=== PATIENT | female | born 1950 | race Caucasian/White ===

== ENCOUNTER 2016-12-24 11:40 | Observation (INO) | payer OTHER ==
[2016-12-24 11:46] VITALS: BMI 36.2
--- NOTE | 2016-12-24 11:55 | PDOC ---
History of Present Illness - General History Source: Family (Daughter) Exam Limitations: No Limitations - History of Present Illness Initial Comments: 12/24/16 12:26 The patient is a 66 year old female with a significant PMH of diabetes, diabetic neuropathy, HTN, hyperlipidemia, chronic back pain, and vocal cord damage s/p thyroidectomy (2012) who presents to the emergency department with shortness of breath and chest pain beginning approximately 10 hours ago. The patients daughter reports that the patient has had difficulty breathing and speaking since her thyroid surgery, which is normally under control. However, this morning the patients daughter noticed that the patient was taking a significant time to catch her breath each time and could not speak at all, prompting her to bring the patient to the ED. The patient appears anxious upon presentation to the ED. The patient denies headache and dizziness. Denies fever, chills, nausea, vomit, diarrhea and constipation. Denies dysuria, frequency, urgency and hematuria. Allergies: Codeine, Penicillins. Past surgical history: Unilateral thyroidectomy. Social history: No reported cigarette, alcohol, or drug use. PCP: Dr. Kilgore <Colby Tinoco - Last Filed: 12/24/16 15:08> <Hoang Wood - Last Filed: 12/24/16 17:07> - General Chief Complaint: Shortness of Breath Stated Complaint: SOB Time Seen by Provider: 12/24/16 11:55 Past History <Colby Tinoco - Last Filed: 12/24/16 15:08> - Past Medical History Diabetes: Yes HTN: Yes Hypercholesterolemia: Yes Thyroid Disease: Yes - Surgical History Abdominal Surgery: Yes Appendectomy: Yes Cholecystectomy: Yes - Immunization History Immunization Up to Date: No - Suicide/Smoking/Psychosocial Hx Smoking Status: No Smoking History: Never smoked Number of Cigarettes Smoked Daily: 0 Information on smoking cessation initiated: No Hx Alcohol Use: No Drug/Substance Use Hx: No Substance Use Type: None <Hoang Wood - Last Filed: 12/24/16 17:07> - Past Medical History Allergies/Adverse Reactions: Allergies Allergy/AdvReac Type Severity Reaction Status Date / Time codeine Allergy Rash Verified 12/24/16 11:46 Penicillins Allergy Rash Verified 12/24/16 11:46 Home Medications: Ambulatory Orders Metformin HCl [Glucophage] 1,000 mg PO BID 10/16/12 Simvastatin [Zocor -] 20 mg PO HS 10/16/12 Carvedilol 3.125 mg PO BID 04/20/14 Esomeprazole Magnesium [Nexium 24Hr] 20 mg PO PRN 12/24/16 Gabapentin [Neurontin -] 300 mg PO TID 12/24/16 Insulin Glargine,Hum.rec.anlog [Lantus (nf)] 50 units SQ HS 12/24/16 Levothyroxine [Synthroid -] 25 mcg PO BID 12/24/16 Review of Systems - Review of Systems Comments:: 12/24/16 12:26 GENERAL/CONSTITUTIONAL: No fever or chills. No weakness. HEAD, EYES, EARS, NOSE AND THROAT: No change in vision. No ear pain or discharge. No sore throat. CARDIOVASCULAR: (+) Shortness of breath. (+) Chest pain. RESPIRATORY: No cough, wheezing, or hemoptysis. GASTROINTESTINAL: No nausea, vomiting, diarrhea or constipation. GENITOURINARY: No dysuria, frequency, or change in urination. MUSCULOSKELETAL: No joint or muscle swelling or pain. No neck or back pain. SKIN: No rash NEUROLOGIC: No headache, vertigo, loss of consciousness, or change in strength/ sensation. ENDOCRINE: No increased thirst. No abnormal weight change. HEMATOLOGIC/LYMPHATIC: No anemia, easy bleeding, or history of blood clots. ALLERGIC/IMMUNOLOGIC: No hives or skin allergy. <Colby Tinoco - Last Filed: 12/24/16 15:08> *Physical Exam - Vital Signs Last Vital Signs Temp Pulse Resp BP Pulse Ox 98.1 F 64 19 150/66 100 12/24/16 11:44 12/24/16 11:44 12/24/16 11:44 12/24/16 11:44 12/24/16 12:21 - Physical Exam Comments: 12/24/16 12:27 GENERAL: (+) Anxious. Awake, alert, and fully oriented. HEAD: No signs of trauma EYES: PERRLA, EOMI, sclera anicteric, conjunctiva clear ENT: Auricles normal inspection, hearing grossly normal, nares patent, oropharynx clear without exudates. Moist mucosa NECK: Normal ROM, supple, no lymphadenopathy, JVD, or masses LUNGS: Breath sounds equal, clear to auscultation bilaterally. No wheezes, and no crackles HEART: Regular rate and rhythm, normal S1 and S2, no murmurs, rubs or gallops ABDOMEN: Soft, nontender, normoactive bowel sounds. No guarding, no rebound. No masses EXTREMITIES: Normal range of motion, no edema. No clubbing or cyanosis. No cords, erythema, or tenderness NEUROLOGICAL: Cranial nerves II through XII grossly intact. Normal speech, normal gait SKIN: Warm, Dry, normal turgor, no rashes or lesions noted. <Colby Tinoco - Last Filed: 12/24/16 15:08> - Vital Signs Last Vital Signs Temp Pulse Resp BP Pulse Ox 98.1 F 64 19 150/66 97 12/24/16 11:44 12/24/16 11:44 12/24/16 11:44 12/24/16 11:44 12/24/16 11:44 <Hoang Wood - Last Filed: 12/24/16 17:07> Heart Score/ECG Review #1 12/24/16 14:51 Vent rate 64 bpm AK interval 130 ms QRS duration 66 ms QT/QTc 342/352 ms P-R-T axes 38 -17 133 Normal sinus rhythm with sinus arrhythmia. Inferior infarct, age undetermined. Anterior infarct, age undetermined. Abnormal ECG. <Colby Tinoco - Last Filed: 12/24/16 15:08> ED Treatment Course - LABORATORY CBC & Chemistry Diagram: 12/24/16 12:00 12/24/16 12:00 <Colby Tinoco - Last Filed: 12/24/16 15:08> - LABORATORY CBC & Chemistry Diagram: 12/24/16 12:00 12/24/16 12:00 <Hoang Wood - Last Filed: 12/24/16 17:07> *DC/Admit/Observation/Transfer - Attestations Scribe Attestion: 12/24/16 12:27 Documentation prepared by Colby Tinoco, acting as medical insurance clerk for Hoang Wood DO. <Colby Tinoco - Last Filed: 12/24/16 15:08> - Discharge Dispostion Admit: Yes - Attestations Physician Attestion: 12/24/16 11:55 I, Dr. Hoang Wood, attest that this document has been prepared under my direction and personally reviewed by me in its entirety. I further attest, that it accurately reflects all work, treatment, procedures and medical decision -making performed by me. <Hoang Wood - Last Filed: 12/24/16 17:07> Diagnosis at time of Disposition: ACS (acute coronary syndrome), Chest pain, atypical, Vocal cord paralysis syndrome, Anxiety, Elevated CPK Dyspnea Qualifiers: Dyspnea type: shortness of breath Qualified Code(s): R06.02 - Shortness of breath - Discharge Dispostion Condition at time of disposition: Improved *Heart Score (ED) - History History: Slightly suspicious - Electrocardiogram EKG: Non specific repolarization disturbance - Age Age: >/= 65 - Risk Factors Risk Factors Heart Score: Yes Hx Hypercholesterolemia, Yes Hx Diabetes, Yes Positive family hx of cardiac disease, Yes Hx Obesity Based on the list above the patient has:: >/=3 risk factors or Hx atherosclerotic disease - Troponin Troponin: </= normal limit - Score Heart Score - Total: 5 <Hoang Wood - Last Filed: 12/24/16 17:07>
[2016-12-24] MEDS ORDERED: SODIUM CHLORIDE 1,000 ML IV STA (12:13)
[2016-12-24] MEDS ORDERED: ASPIRIN 81 MG CHEWABLE TABLETS PO ONE (12:13)
[2016-12-24] MEDS ORDERED: ASPIRIN 81 MG CHEWABLE TABLETS ONE (12:24)
[2016-12-24] MEDS ORDERED: LORazepam 2 MG/ML SDV VIAL ONE (12:25)
[2016-12-24 12:34] LABS: BASOPHIL 0.5 % (0-2.0); EOSINOPHIL 2.9 % (0-4.5); MCH 27.6 pg (25.7-33.7); MCHC 32.9 g/dl (32.0-36.0); NEUTROPHILS 52.8 % (42.8-82.8); PLATELET COUNT 153 K/MM3 (134-434); RDW 14.3 % (11.6-15.6); WHITE BLOOD COUNT 6.6 K/mm3 (4.0-10.0)
[2016-12-24 12:40] LABS: INR 1.2 (0.82-1.09); PROTHROMBIN TIME (PATIENT) 13.3 SEC (9.98-11.88)
[2016-12-24 12:42] LABS: URINE APPEARANCE CLEAR; URINE BILIRUBIN NEGATIVE (NEGATIVE); URINE BLOOD NEGATIVE (NEGATIVE); URINE COLOR STRAW; URINE GLUCOSE (UA) NEGATIVE (NEGATIVE); URINE KETONE NEGATIVE (NEGATIVE); URINE LEUK ESTERASE TRACE (NEGATIVE); URINE NITRITE NEGATIVE (NEGATIVE); URINE PROTEIN NEGATIVE (NEGATIVE); URINE UROBILINOGEN NEGATIVE mg/dL (0.2-1.0)
[2016-12-24 12:49] LABS: URINE RBC 1 /hpf (0-3); URINE WBC 3 /hpf (3-5)
[2016-12-24 12:56] LABS: ALBUMIN 3.5 g/dl (3.4-5.0); ANION GAP 8 (8-16); BILIRUBIN,TOTAL 0.7 mg/dL (0.2-1.0); CALCIUM 9.6 mg/dL (8.5-10.1); CO2 27 mmol/L (21-32); CREATININE 0.7 mg/dL (0.55-1.02); GLUCOSE,RANDOM 124 mg/dL (74-106); MAGNESIUM 1.5 mg/dL (1.8-2.4); SGOT/AST 55 U/L (15-37); SGPT/ALT 73 U/L (12-78); TOT PROT 7.2 g/dl (6.4-8.2)
[2016-12-24 12:59] LABS: ALK PHOS 60 U/L (45-117); CPK 261 IU/L (26-192); TROPONIN I 0.03 ng/ml (0.00-0.05)
[2016-12-24 13:41] LABS: ALLENS TEST POSITIVE; ARTERIAL BLD GAS O2 SATURATION 97.9 % (90-98.9); ARTERIAL BLOOD GAS BASE EXCESS -0.5 meq/l (-2-2); ARTERIAL BLOOD GAS HCO3 24.2 meq/L (22-26); ARTERIAL BLOOD GAS PO2 98.7 mmHg (80-100); ARTERIAL BLOOD GAS pH 7.37 (7.35-7.45); METHEMOGLOBIN 0.4 % (0.4-1.5)
[2016-12-24 13:42] LABS: ART PUNCT SITE RIGHT RADIAL; LPM/O2% 1.5L; PT. ON O2? YES; TYPE OF O2 NASAL
[2016-12-24] MEDS ORDERED: FLU VACCINE QUAD 60 MCG/0.5 ML (MDV 17-18) IM ONE (17:05)
[2016-12-24] MEDS ORDERED: MAGNESIUM SULF 50% (8.12 MEQ/2 ML-1 GM VIAL) IVPB ONE ×2 (17:06→20:23)
[2016-12-24] MEDS ORDERED: MAGNESIUM SULF 50% (8.12 MEQ/2 ML-1 GM VIAL) ONE (17:08)
--- NOTE | 2016-12-24 18:06 | HP ---
CHIEF COMPLAINT: Chest pain and SOB PCP: Dr. Dede Kilgore ([facility]) Cardiology: Dr. Ranjan Sun ([facility]) HISTORY OF PRESENT ILLNESS: 66 year-old female with a PMH significant for HTN, HLD, GERD, IDDM, diabetic neuropathy, lumbar disc disease with sciatica s/p L4-L5 laminectomy (2014), s/p partial thyroidectomy with vocal cord damage sequelae (2012), renal cancer s/p right nephrectomy (2009, no radiation/no chemo), At 2:00am today the patient awoke from sleep gasping for air and it took about 30 minutes for her breathing to return to normal. The shortness of breath was accompanied by a pain in her throat which moved down to the upper part of her chest. This too resolved in about 30 minutes. When the patient's daughter heard what happened at 10:00am she drove from [place] and brought her mother to the ED. The patient has a history of becoming short of breath, at times, since her thyroid surgery and she has been instructed on how to breath through her nose to regulate her breathing. She tried this technique today but it did not work. The patient denies dizziness , lightheadedness, palpitations, diaphoresis; denies any change in exercise tolerance; denies fever, sweats, chills; denies peripheral edema. She once went for a sleep study for her snoring but she was unable to complete the study as she cannot lay down for more than an hour at a time due to her back pain and neuropathy. ER course was notable for: (1) ECG SR @ 64, sinus arrhythmia (2) Trop x 1 neg Recent Travel: No PAST MEDICAL HISTORY: Hypertension Hyperlipidemia IDDM Diabetic neuropathy Lumbar disc disease with sciatica Renal cancer PAST SURGICAL HISTORY: L4-L5 laminectomy (2014) Partial thyroidectomy (2012) Right nephrectomy (2009) Hysterectomy (2000) Cholecystectomy (1982) Appendectomy (1969) Social History Smoking: no Alcohol: no Drugs: no Family History: family cardiac history Allergies codeine Allergy (Verified 12/24/16 11:46) Rash Penicillins Allergy (Verified 12/24/16 11:46) Rash Home Medications Medication Instructions Recorded Metformin HCl [Glucophage] 1,000 mg PO BID 10/16/12 Simvastatin [Zocor -] 0 mg PO HS 10/16/12 Carvedilol 3.125 mg PO BID 04/20/14 Esomeprazole Magnesium [Nexium 20 mg PO PRN 12/24/16 24Hr] Gabapentin [Neurontin -] 300 mg PO TID 12/24/16 Insulin Glargine,Hum.rec.anlog 50 units SQ HS 12/24/16 [Lantus (nf)] Levothyroxine [Synthroid -] 25 mcg PO BID 12/24/16 REVIEW OF SYSTEMS CONSTITUTIONAL: Absent: fever, chills, diaphoresis, generalized weakness, malaise, loss of appetite, weight change HEENT: Absent: rhinorrhea, nasal congestion, throat pain, throat swelling, difficulty swallowing, mouth swelling, ear pain, eye pain, visual changes CARDIOVASCULAR: Absent: chest pain, syncope, palpitations, irregular heart rate, lightheadedness , peripheral edema RESPIRATORY: Present: SOB, h/o snoring, throat pain Absent: cough, shortness of breath, dyspnea with exertion, orthopnea, wheezing, stridor, hemoptysis GASTROINTESTINAL: Absent: abdominal pain, abdominal distension, nausea, vomiting, diarrhea, constipation, melena, hematochezia GENITOURINARY: Absent: dysuria, frequency, urgency, hesitancy, hematuria, flank pain, genital pain MUSCULOSKELETAL: Absent: myalgia, arthralgia, joint swelling, back pain, neck pain SKIN: Absent: rash, itching, pallor HEMATOLOGIC/IMMUNOLOGIC: Absent: easy bleeding, easy bruising, lymphadenopathy, frequent infections ENDOCRINE: Absent: unexplained weight gain, unexplained weight loss, heat intolerance, cold intolerance NEUROLOGIC: Absent: headache, focal weakness or paresthesias, dizziness, unsteady gait, seizure, mental status changes, bladder or bowel incontinence PSYCHIATRIC: Absent: anxiety, depression, suicidal or homicidal ideation, hallucinations. PHYSICAL EXAMINATION Vital Signs - 24 hr 12/24/16 16:56 Pulse Rate 64 Respiratory 15 Rate Blood Pressure 139/63 GENERAL: Awake, alert, and fully oriented, in no acute distress. HEAD: Normal with no signs of trauma. EYES: Pupils equal, round and reactive to light, extraocular movements intact, sclera anicteric, conjunctiva clear. No ptosis. EARS, NOSE, THROAT: Ears normal, nares patent, oropharynx clear without exudates. Moist mucous membranes. NECK: Normal range of motion, supple without lymphadenopathy, JVD, or masses. LUNGS: Breath sounds equal, clear to auscultation bilaterally. No wheezes, and no crackles. No accessory muscle use. HEART: Regular rate and rhythm, normal S1 and S2, +murmur ABDOMEN: Soft, nontender, not distended, normoactive bowel sounds, no guarding, no rebound, no masses. No hepatomegaly or splenomegaly. MUSCULOSKELETAL: Normal range of motion at all joints. No bony deformities or tenderness. No CVA tenderness. UPPER EXTREMITIES: 2+ pulses, warm, well-perfused. No cyanosis. No clubbing. No peripheral edema. LOWER EXTREMITIES: 2+ pulses, warm, well-perfused. No calf tenderness. No peripheral edema. NEUROLOGICAL: Cranial nerves II-XII intact. Normal speech. Moving all extremities freely. PSYCHIATRIC: Cooperative. Good eye contact. Appropriate mood and affect. ASSESSMENT/PLAN: 66 year-old female with a PMH significant for HTN, HLD, GERD, IDDM, diabetic neuropathy, lumbar disc disease with sciatica s/p L4-L5 laminectomy (2014), s/p partial thyroidectomy with vocal cord damage sequelae (2012), and renal cancer s /p right nephrectomy (2009, no radiation/no chemo). Shortness of breath Throat pain/upper mid chest pain --cardiac: two troponins neg, third pending; ECG not suggestive of acute ischemic event; CXR: large heart; follows regularly with reservation sales agent Dr Ranjan Carias at [facility] ([phone]) and last seen two weeks ago, told everything was "fine"; get records in am; echo ordered; NPO after midnight in event stress is warranted; cardiology consult Dr. Palm; tele monitoring --r/o pulmonary: low suspicion for PE, Wells score zero; suspect sleep apnea ; several years ago could not complete a sleep study; pulmonary consult requested; --r/o thyroid: since thyroidectomy has had episodes of SOB v. apnea, patient describes a feeling at times of something stuck in her throat and she can't breathe, concern for obstructive v. inflammatory process; consider ENT consult, obtain PCP records --GERD: on nexium at home; start protonix Hypertension --continue carvediolol Hyperlipidemia --continue atorvastatin GERD --continue protonix IDDM --Novolog sliding scale coverage Diabetic neuropathy --continue Gabapentin Lumbar disc disease s/p L4-L5 laminectomy with sciatica --continue Gabapentin Partial thyroidectomy --continue levothyroxine --TSH, free T3, free T4 Renal cancer s/p right nephrectomy --patient was followed for three years by oncology, no recurrence; surveillance now down by PCP Dr. Dede Kilgore Hypomagnesemia --Mg 1.5; repleted 1gm in ED, 1gm now; keep Mg>2 F/E/N Fluids: PO intake adequate Electrolytes: replete as indicated Nutrition: diabetic, low sodium; NPO after midnight DVT prophylaxis: subq heparin, oob, ambulation Dispo: continues to require inpatient care. Full code. Visit type - Emergency Visit Emergency Visit: Yes ED Registration Date: 12/24/16 Care time: The patient presented to the Emergency Department on the above date and was hospitalized for further evaluation of their emergent condition. - New Patient This patient is new to me today: Yes Date on this admission: 12/24/16 - Critical Care Critical Care patient: No
[2016-12-24] MEDS ORDERED: ENOXAPARIN NA (PORCINE) 40 MG/0.4 ML DISP.SYRIN SQ SCH (18:15)
[2016-12-24] MEDS ORDERED: PATIENT'S OWN MEDICATION (NON-FORMULARY) (Esomeprazole Magnesium [Nexium 24hr] 20 MG) PO SCH (18:15)
[2016-12-24] MEDS: ATORVASTATIN CA 20 MG TABLET (FP) PO SCH (21:37)
[2016-12-24] MEDS: GABAPENTIN 100 MG CAPSULE (FP) PO SCH (21:37)
[2016-12-24] MEDS: CARVEDILOL 3.125 MG TABLET (FP) PO SCH (21:37)
[2016-12-24] MEDS: HEPARIN NA (PORCINE) 5,000 UNITS/ML 1ML VIAL SQ SCH (21:39)
[2016-12-24] MEDS: INSULIN (NOVOLOG) ASPART 100 UNITS/ML 10ML VIAL SQ SCH (21:41)
[2016-12-24] MEDS ORDERED: ATORVASTATIN CA 40 MG TABLET (FP) PO SCH (22:00)
[2016-12-24] MEDS ORDERED: LEVOTHYROXINE NA 25 MCG TABLET (FP) PO SCH (22:00)
[2016-12-25] MEDS: HEPARIN NA (PORCINE) 5,000 UNITS/ML 1ML VIAL SQ SCH ×3 (06:00→21:40)
[2016-12-25] MEDS: GABAPENTIN 100 MG CAPSULE (FP) PO SCH ×3 (06:00→21:39)
[2016-12-25] MEDS: LEVOTHYROXINE NA 25 MCG TABLET (FP) PO SCH (07:00)
[2016-12-25 07:39] LABS: BASOPHIL 0.5 % (0-2.0); EOSINOPHIL 2.4 % (0-4.5); MCH 28.1 pg (25.7-33.7); MCHC 32.9 g/dl (32.0-36.0); MEAN CELL VOLUME 85.2 fl (80-96); MEAN PLT VOLUME 9.2 fl (7.5-11.1); NEUTROPHILS 44.5 % (42.8-82.8); PLATELET COUNT 125 K/MM3 (134-434); RDW 14.5 % (11.6-15.6); WHITE BLOOD COUNT 5.4 K/mm3 (4.0-10.0)
--- NOTE | 2016-12-25 08:21 | CON.CARD ---
Consult Consult Specialty:: Cardiology Referred by:: Hospitalist Medicine Reason for Consultation:: PND - History of Present Illness Chief Complaint: PND History of Present Illness: PCP: Dr. Dede Kilgore ([facility]) Cardiology: Dr. Ranjan Carias ([facility]), previously Dr. Seth Hernandez ( [facility]), ENT ([facility] [phone]) HISTORY OF PRESENT ILLNESS: 66 year-old female with a PMH significant for HTN, HLD, GERD, IDDM, diabetic neuropathy, lumbar disc disease with sciatica s/p L4-L5 laminectomy (2014), s/p partial thyroidectomy with vocal cord damage sequelae (2012), renal cancer s/p right nephrectomy (2009, no radiation/no chemo), patient awoke from sleep gasping for air and it took about 30 minutes for her breathing to return to normal. The shortness of breath was accompanied by a pain in her throat which moved down to the upper part of her chest. This too resolved in about 30 minutes. The patient has a history of becoming short of breath with choking sensation since her thyroid surgery and she has been instructed on how to breath through her nose to regulate her breathing. She tried this technique today but it did not work, previosly had hoarse voice since resolved. The patient denies dizziness, true syncope, lightheadedness, palpitations, diaphoresis, angina, denies any change in exercise tolerance; denies fever, sweats, chills; denies peripheral edema. She once went for a sleep study for her snoring but she was unable to complete the study as she cannot lay down for more than an hour at a time due to her back pain and neuropathy. - Past Medical History Cardio/Vascular: Yes: HTN, Hyperlipdemia Endocrine: Yes: Diabetes Mellitus - Alcohol/Substance Use Hx Alcohol Use: No - Smoking History Smoking history: Never smoked Aproximately how many cigarettes per day: 0 - Social History Usual Living Arrangement: With Spouse Home Medications - Allergies Allergies/Adverse Reactions: Allergies Allergy/AdvReac Type Severity Reaction Status Date / Time codeine Allergy Rash Verified 12/24/16 11:46 Penicillins Allergy Rash Verified 12/24/16 11:46 - Home Medications Home Medications: Ambulatory Orders Metformin HCl [Glucophage] 1,000 mg PO BID 07/17/13 Simvastatin [Zocor -] 0 mg PO HS 10/16/12 Carvedilol 3.125 mg PO BID 04/20/14 Esomeprazole Magnesium [Nexium 24Hr] 20 mg PO PRN 12/24/16 Gabapentin [Neurontin -] 300 mg PO TID 12/24/16 Insulin Glargine,Hum.rec.anlog [Lantus (nf)] 50 units SQ HS 12/24/16 Levothyroxine [Synthroid -] 25 mcg PO BID 12/24/16 Review of Systems - Review of Systems Respiratory: reports: PND Vital Signs: Vital Signs Temperature 98.0 F 12/25/16 06:00 Pulse Rate 74 12/25/16 06:00 Respiratory Rate 18 12/25/16 06:00 Blood Pressure 129/59 12/25/16 06:00 O2 Sat by Pulse Oximetry (%) 95 12/24/16 21:00 Constitutional: Yes: No Distress, Calm Neck: Yes: Supple Respiratory: Yes: Regular, Diminished Gastrointestinal: Yes: Normal Bowel Sounds, Soft, Abdomen, Obese Cardiovascular: Yes: Regular Rate and Rhythm JVD: No Carotid Bruit: No Heart Sounds: Yes: S1, S2 Edema: No - Other Data Labs, Other Data: CBC, BMP 12/25/16 05:30 12/25/16 05:30 INR, PTT INR 1.20 (0.82-1.09) H 12/24/16 12:00 Troponin, BNP 12/24/16 12/25/16 18:20 00:30 Troponin I 0.02 < 0.02 Troponin, BNP 12/24/16 12/25/16 18:20 00:30 Troponin I 0.02 < 0.02 NSR @ 64 inferior Qs, PRWP Imaging - Results Chest X-ray: Report Reviewed (NAD) Problem List - Problems (1) Chest pain, atypical Code(s): R07.89 - OTHER CHEST PAIN (2) Vocal cord paralysis syndrome Code(s): J38.00 - PARALYSIS OF VOCAL CORDS AND LARYNX, UNSPECIFIED (3) Hypothyroidism Code(s): E03.9 - HYPOTHYROIDISM, UNSPECIFIED Qualifiers: Hypothyroidism type: unspecified Qualified Code(s): E03.9 - Hypothyroidism, unspecified (4) Hyperlipidemia Code(s): E78.5 - HYPERLIPIDEMIA, UNSPECIFIED Qualifiers: Hyperlipidemia type: pure hypercholesterolemia Qualified Code(s): E78.00 - Pure hypercholesterolemia, unspecified; E78.0 - Pure hypercholesterolemia (5) Hypertension Code(s): I10 - ESSENTIAL (PRIMARY) HYPERTENSION Qualifiers: Hypertension type: essential hypertension Qualified Code(s): I10 - Essential (primary) hypertension (6) Type 2 diabetes mellitus Code(s): E11.9 - TYPE 2 DIABETES MELLITUS WITHOUT COMPLICATIONS Qualifiers: Diabetes mellitus complication status: with unspecified complications Diabetes mellitus penitentiary insulin use: with extermination inspector use Qualified Code(s): E11.8 - Type 2 diabetes mellitus with unspecified complications; Z79.4 - terminal block assembler (current) use of insulin Assessment/Plan 1. Dyspnea, choking and aspiration with h/o vocal cord paralysis post partial thyroidectomy 2. Hypertension 3. Hyperlipidema 4. insulin-dependent Type 2 DM P:1. ENT for NPL and contact ENT at [facility], speech and swallow therapy 2. Ruling out for AL, symptoms atypical for CV disease 3. Continue Lipitor and carvedilol 3. Patient prefers to continue following up with me as outpatient, please obtain records from [facility] 4. Will follow while in house.
[2016-12-25 08:23] LABS: ALBUMIN 3.1 g/dl (3.4-5.0); ANION GAP 7 (8-16); CALCIUM 8.9 mg/dL (8.5-10.1); CO2 26 mmol/L (21-32); GLUCOSE,RANDOM 175 mg/dL (74-106); MAGNESIUM 1.8 mg/dL (1.8-2.4); SGOT/AST 43 U/L (15-37)
[2016-12-25 08:28] LABS: C-REACTIVE PROTEIN 0.8 MG/DL (0.00-0.3)
[2016-12-25 08:29] LABS: FREE T4 0.97 ng/dl (0.76-1.46)
[2016-12-25 08:35] LABS: ALK PHOS 57 U/L (45-117); BILIRUBIN,TOTAL 0.5 mg/dL (0.2-1.0); CREATININE 0.8 mg/dL (0.55-1.02); SGPT/ALT 60 U/L (12-78); THYROID STIMULATING HORMONE 3.34 uIU/ml (0.358-3.74); TOT PROT 6.3 g/dl (6.4-8.2)
[2016-12-25] MEDS: PANTOPRAZOLE 40 MG TABLET (FP) PO SCH (09:12)
[2016-12-25] MEDS: CARVEDILOL 3.125 MG TABLET (FP) PO SCH ×2 (09:12→21:39)
[2016-12-25 09:16] LABS: ERYTHROCYTE SEDIMENTATION RATE 35 mm/hr (0-30)
--- NOTE | 2016-12-25 10:54 | EKG ---
Test Reason : Blood Pressure : / mmHG Vent. Rate : 064 BPM Atrial Rate : 064 BPM P-R Int : 128 ms QRS Dur : 070 ms QT Int : 444 ms P-R-T Axes : 055 002 090 degrees QTc Int : 458 ms NORMAL SINUS RHYTHM WITH SINUS ARRHYTHMIA INFERIOR INFARCT (CITED ON OR BEFORE 12-NOV-2009) ABNORMAL ECG WHEN COMPARED WITH ECG OF 24-DEC-2016 12:26, NONSPECIFIC T WAVE ABNORMALITY NO LONGER EVIDENT IN INFERIOR LEADS NONSPECIFIC T WAVE ABNORMALITY NO LONGER EVIDENT IN ANTERIOR LEADS QT HAS LENGTHENED Confirmed by WYATT TRAN, DHRUV ([id number]) on 12/25/2016 10:54:01 AM Referred By: KELLEN YEPEZ Confirmed By:DHRUV SCHNEIDER MD
--- NOTE | 2016-12-25 11:19 | EKG ---
Test Reason : Blood Pressure : / mmHG Vent. Rate : 064 BPM Atrial Rate : 064 BPM P-R Int : 130 ms QRS Dur : 066 ms QT Int : 342 ms P-R-T Axes : 038 -17 133 degrees QTc Int : 352 ms NORMAL SINUS RHYTHM WITH SINUS ARRHYTHMIA INFERIOR INFARCT (CITED ON OR BEFORE 12-NOV-2009) ANTERIOR INFARCT , AGE UNDETERMINED ABNORMAL ECG WHEN COMPARED WITH ECG OF 29-MAY-2014 23:22, VENT. RATE HAS DECREASED BY 52 BPM SERIAL CHANGES OF INFERIOR INFARCT PRESENT Confirmed by DHRUV SCHNEIDER MD ([id number]) on 12/25/2016 11:19:01 AM Referred By: Confirmed By:DHRUV SCHNEIDER MD
--- NOTE | 2016-12-25 11:48 | PN ---
Progress Note (short form) - Note Progress Note: PULMONARY CONSULTATION DICTATED 12/25/16 IMP DYSPNEA,CHOKING R/O ASPIRATION,?OSAS VOCAL CORD PARALYSIS S/P THYROIDECTOMY H/O RENAL CELL CA S/P R NEPHRECTOMY IDDM HTN HLD PLAN ENT EVAL ASPIRATION PRECAUTIONS SLEEP SCREEN ? CT UPPER AIRWAY PFTS WITH FLOW VOLUME LOOP OUTPATIENT CONSIDER SPEECH THERAPY EVALUATION Problem List - Problems (1) Anxiety Code(s): F41.9 - ANXIETY DISORDER, UNSPECIFIED (2) Chest pain, atypical Code(s): R07.89 - OTHER CHEST PAIN (3) Dyspnea Code(s): R06.00 - DYSPNEA, UNSPECIFIED Qualifiers: Dyspnea type: shortness of breath Qualified Code(s): R06.02 - Shortness of breath; R06.00 - Dyspnea, unspecified; R06.01 - Orthopnea (4) Hyperlipidemia Code(s): E78.5 - HYPERLIPIDEMIA, UNSPECIFIED Qualifiers: Hyperlipidemia type: pure hypercholesterolemia Qualified Code(s): E78.00 - Pure hypercholesterolemia, unspecified; E78.0 - Pure hypercholesterolemia (5) Hypertension Code(s): I10 - ESSENTIAL (PRIMARY) HYPERTENSION Qualifiers: Hypertension type: essential hypertension Qualified Code(s): I10 - Essential (primary) hypertension (6) Low back pain Code(s): M54.5 - LOW BACK PAIN (7) Lumbar radicular pain Code(s): M54.16 - RADICULOPATHY, LUMBAR REGION (8) Vocal cord paralysis syndrome Code(s): J38.00 - PARALYSIS OF VOCAL CORDS AND LARYNX, UNSPECIFIED
--- NOTE | 2016-12-25 12:26 | CONSULT ---
Admitting History and Physical - Primary Care Physician PCP: Missy Desir - Admission History of Present Illness: Per EMR: DYSPNEA,CHOKING R/O ASPIRATION,?OSAS VOCAL CORD PARALYSIS S/P THYROIDECTOMY H/O RENAL CELL CA S/P R NEPHRECTOMY IDDM HTN HLD Pt reports h/o thyroidectomy, with VC paralysis. She experiences choking intermittently on solids and liquids, without h/o PNA.At times, she wakes up gasping for air, unable to talk or breathe. History Source: Patient Limitations to Obtaining History: No Limitations - Past Medical History Cardiovascular: Yes: HTN, Hyperlipdemia Endocrine: Yes: Diabetes Mellitus - Smoking History Smoking history: Never smoked Aproximately how many cigarettes per day: 0 - Alcohol/Substance Use Hx Alcohol Use: No History - Admission Reason For Visit: DYSPENA - Diagnostics X-ray: Report Reviewed - General Mental Status: Alert and Oriented, Awake and Alert, Able to Follow Commands Attention: Intact Ability to Follow Directions: Excellent Head/Neck Control: WFL - Hearing Hearing: Normal Speech Evaluation - Communication Primary Language: INDIAN (Almanian) Secondary Language: INDIAN Communication: Yes: Within Normal Limits Oral Expression Ability: Yes: No Impairment - Speech Production Able to Make Needs Known: Yes: WNL Intelligibility: Yes: WNL - Speech Characteristics Voice Loudness: Normal Voice Pitch: Yes: Normal Voice Phonatory-based Quality: Yes: Normal Speech Pattern: Normal Speech Clarity: < 100% Nasal Resonance: Normal Articulation: Yes: Precise Voice, Other Observations: Yes: Inadequate Breath Support (Occasioal inspiratory wheeze sec VC paralysis?) - Language/Auditory Comprehension Follows: Yes: 2 Stage Simple Commands - Language/Verbal Expression Able to Respond to Simple Queries: Yes: WNL Able to Communicate Wants and Needs: Yes: WNL Functional Communication Status: Yes: WNL - Memory/Perception vermin exterminator Memory: Yes: WNL Short Term Memory: Yes: WNL - Swallow Evaluation/Bedside Assessment Current Nutritional Intake: Regular, Thin Liquids Oral Secretions: Yes: WFL Dentition: Yes: Dental Appliance Upper, Dental Appliance Lower Facial Symmetry at Rest: Symmetrical Facial Symmetry on Retraction: Symmetrical Pucker Lips: Normal Smile: Normal Lingual Movement: Normal, Symmetric Lingual Speed of Movement: Normal Lingual Movement Strgth Against Opposition: Normal Lingual Movement Characteristics: Normal Velopharyngeal Movement: Normal Laryngeal Elevation: WFL Laryngeal Movement: Able to Palpate Bolus Size: WFL Labial Seal: WFL Chewing: WFL Oral Prep Time: WFL A-P Transit: WFL Pocketing: None Timing of Swallow: WFL Coughing/Throat Clear: Yes (reported by pt. Not observed) Recommendations - Speech Evaluation, Impression/Plan Impression: r/o intermittent aspiration sec to vocal cord dysfunction/ERMA - Dysphagia Impressions/Plan Dysphagia Impressions: Risk of Aspiration, Ongoing Evaluation *Silent aspiration: cannot be R/O at bedside Recommendations: ENT Consult (visualize VC/function/resting position of VC/if paresis/paralysis-which side?), Modified Barium Swallow, Other (Pt advised to eat/drink slowly,smaller bites,sips, head flexed.)
--- NOTE | 2016-12-25 12:42 | CONS ---
DATE OF CONSULTATION: 12/25/2016 REFERRING PHYSICIAN: RIVAS Polanco HISTORY: The patient is a 66-year-old white female with past medical history of renal cell carcinoma status post right nephrectomy in 2009, no RT or chemotherapy postoperative, history of hypertension, hyperlipidemia, GERD, noninsulin-dependent diabetes mellitus, diabetic nephropathy, history of lumbar disk disease with sciatica status post L4-L5 laminectomy in 2014, partial thyroidectomy, subsequent vocal cord damage sequela 2012 who is a nonsmoker admitted to Health system gasping for air, which took about 30 minutes for her breathing to improve. The patient states she was sleeping and suddenly woke up gasping. She states she has some chest discomfort associated with it. It took about 30 minutes for her symptoms to settle down. She states this never happened before. She states since her vocal cord issues, she had occasional episodes where she eats or drinks something she starts coughing and feels like she cannot breathe, but this is the first time when she slept. She denies any history of asthma or COPD in the past. She denies any fevers, weight loss, or night sweats. She denies any syncope. Apparently, since the thyroid surgery, she has a history of shortness of breath and choking sensation. She has been instructed on how to breathe through her nose to regulate her breathing. She apparently tried the other night, but it did not offer any improvement. She also states she may have sleep apnea. She was unable to tolerate a sleep study secondary to back pain. PAST MEDICAL HISTORY: Again, includes GERD, insulin-dependent diabetes mellitus, hypertension, hyperlipidemia, diabetic neuropathy, lumbar disk disease, sciatica, status post L4-L5 laminectomy, status post partial thyroidectomy with subsequent vocal cord damage 2012, history of renal cell carcinoma, status post right nephrectomy. The patient states that she does not have any reduced exercise tolerance. Denies any shortness of breath with exertion. She denies any history of DVT or PE in the past. REVIEW OF SYSTEMS: Positive orthopnea, positive cough, positive chest discomfort. No fevers, no chills, no hemoptysis, no abdominal pain, no lower extremity edema. MEDICATIONS: Prior to admission include metformin, Zofran, carvedilol, Nexium, Neurontin, Humalog, and Synthroid. Current medications include heparin, Neurontin, Coreg, Lipitor, NovoLog, Protonix, and Synthroid. PHYSICAL EXAMINATION: General: The patient is a well-developed, well-nourished female awake and alert in no acute distress. Vital Signs: She is currently afebrile. Blood pressure 134/62, respiratory rate 18, O2 saturation 98% on room air. HEENT: Normocephalic and atraumatic. Neck: Supple with no adenopathy. There is no stridor. Heart: Regular S1, S2. Chest: Clear. Abdomen: Soft. Bowel sounds positive. Extremities: No clubbing, cyanosis, or edema. LABORATORIES: WBC 5.4, hemoglobin 11, hematocrit 33.5 with a platelet count of 125,000, INR 1.2. Blood gas: PH 7.37, PCO2 of 42, PO2 of 98, bicarbonate 24, saturation 97.9 on 1.5 L, BUN 16, creatinine 0.8. BNP is 155. CRP is 0.8. Chest x-ray: Cardiomegaly with mild, increased markings bilaterally. IMPRESSION: 1. Dyspnea, choking sensation, rule out possible aspiration, rule out possible aspiration secondary to focal complaints paralysis, rule out possible obstructive sleep apnea 2. Hypertension. 3. Hyperlipidemia. 4. Diabetes mellitus. 5. History of renal cell carcinoma status post right nephrectomy. PLAN: Consider ENT evaluation. Aspiration precautions. Obtain sleep screen. Also consider CT scan of the upper airway. JOHN STEEN M.D. MARCELLE/[id number]
[2016-12-25] MEDS ORDERED: INSULIN (NOVOLOG) ASPART 100 UNITS/ML 10ML VIAL ONE (12:46)
[2016-12-25] MEDS: INSULIN (NOVOLOG) ASPART 100 UNITS/ML 10ML VIAL SQ SCH ×3 (12:48→21:41)
--- NOTE | 2016-12-25 15:17 | PN ---
Physical Exam: SUBJECTIVE: Patient seen and examined. She has no chest pain, but she feels difficulty breathing when inhales through nose with mouth closed. She has persistent lower back tenderness. OBJECTIVE: Vital Signs Period Temp Pulse Resp BP Sys/Wallace Pulse Ox Last 24 Hr 98 F-98.4 F 64-74 15-18 129-139/59-73 95-95 PE Neuro: alert, awake, cn 2-12intact Pulm: CTAB CV: s1 s2 rrr no mrg Abd: s nt nd + bs Msk: mid-lower back tenderness Ext: no le edema, warm Laboratory Results - last 24 hr 12/25/16 12/25/16 12/25/16 05:10 05:30 05:30 WBC RBC Hgb Hct MCV MCH MCHC RDW Plt Count MPV Neutrophils % Lymphocytes % Monocytes % Eosinophils % Basophils % ESR Sodium 140 Potassium 4.1 Chloride 105 Carbon Dioxide 26 Anion Gap 7 L BUN 16 Creatinine 0.8 Creat Clearance w eGFR > 60 POC Glucometer 187 Random Glucose 175 H D Calcium 8.9 Phosphorus 3.0 Magnesium 1.8 Total Bilirubin 0.5 D AST 43 H D ALT 60 Alkaline Phosphatase 57 Troponin I C-Reactive Protein 0.8 H Total Protein 6.3 L Albumin 3.1 L TSH 3.34 Free T4 0.97 12/25/16 12/25/16 05:30 12:44 WBC 5.4 RBC 3.94 Hgb 11.0 D Hct 33.5 MCV 85.2 MCH 28.1 MCHC 32.9 RDW 14.5 Plt Count 125 L MPV 9.2 Neutrophils % 44.5 Lymphocytes % 45.5 H D Monocytes % 7.1 Eosinophils % 2.4 Basophils % 0.5 ESR 35 H Sodium Potassium Chloride Carbon Dioxide Anion Gap BUN Creatinine Creat Clearance w eGFR POC Glucometer 226 Random Glucose Calcium Phosphorus Magnesium Total Bilirubin AST ALT Alkaline Phosphatase Troponin I C-Reactive Protein Total Protein Albumin TSH Free T4 12/24/16 12/25/16 12/25/16 18:20 00:30 05:30 Troponin I 0.02 < 0.02 C-Reactive Protein 0.8 H Free T4 0.97 Free T3 12/25/16 05:30 Troponin I C-Reactive Protein Free T4 Free T3 Pending Active Medications Generic Name Dose Route Start Last Admin Trade Name Freq PRN Reason Stop Dose Admin Atorvastatin Calcium 20 mg 12/24/16 22:00 12/24/16 21:37 Lipitor - PO 20 mg HS AMANDA Administration Carvedilol 3.125 mg 12/24/16 22:00 12/25/16 09:12 Coreg - PO 3.125 mg BID AMANDA Administration Gabapentin 300 mg 12/24/16 22:00 12/25/16 13:24 Neurontin - PO 300 mg TID AMANDA Administration Heparin Sodium (Porcine) 5,000 unit 12/24/16 22:00 12/25/16 13:23 Heparin - SQ 5,000 unit TID AMANDA Administration Insulin Aspart 0 units 12/24/16 22:00 12/25/16 12:48 Novolog Vial SQ 4 units ACHS AMANDA Administration Protocol Levothyroxine Sodium 25 mcg 12/25/16 07:00 Synthroid - PO DAILY@0700 AMANDA Pantoprazole Sodium 40 mg 12/25/16 10:00 12/25/16 09:12 Protonix - PO 40 mg DAILY AMANDA Administration Assessment: 66 year old female with a PMH significant for HTN, HLD, GERD, IDDM, diabetic neuropathy, lumbar disc disease with sciatica s/p L4-L5 laminectomy ( 2014), s/p partial thyroidectomy with vocal cord damage sequelae (2012), renal cancer s/p right nephrectomy (2009, no radiation/no chemo), patient awoke from sleep gasping for air and it took about 30 minutes for her breathing to return to normal. Plan: 1. Acute SOB/?throat closure/obstruction/edema - Obtain CT soft tissue, upper airway pt s/p thyroidectomy - ENT assess for laryngeal paralysis - ENT records from [facility] in medical chart: ENT ([facility]ryan [facility] [phone]) 2. HTN - Cont carvediolol 3. Hyperlipidemia - Continue atorvastatin 4. GERD - Protonix 5. DM II - Takes 50units of lantus, will order levemir 25units BID - ISS, BGM, ACHS 6. Diabetic neuropathy/bilateral lower ext pain - Continue Gabapentin 7. Lumbar disc disease s/p L4-L5 laminectomy with sciatica - Continue Gabapentin 8. Partial thyroidectomy - TSH wnl - Maintain current dose of synthroid 9. Renal cancer s/p right nephrectomy - Patient was followed for three years by oncology, no recurrence; surveillance now done by PCP Dr. Dede Kilgore Visit type - Emergency Visit Emergency Visit: Yes ED Registration Date: 12/24/16 Care time: The patient presented to the Emergency Department on the above date and was hospitalized for further evaluation of their emergent condition. - New Patient This patient is new to me today: Yes Date on this admission: 12/25/16 - Critical Care Critical Care patient: No
[2016-12-25] MEDS ORDERED: INSULIN DETEMIR 100 UNITS/ML MDV SQ SCH (16:30)
[2016-12-25] MEDS: ATORVASTATIN CA 20 MG TABLET (FP) PO SCH (21:39)
[2016-12-25] MEDS: INSULIN DETEMIR 100 UNITS/ML MDV SQ SCH (21:40)
[2016-12-26] MEDS: GABAPENTIN 100 MG CAPSULE (FP) PO SCH ×2 (06:35→14:58)
[2016-12-26] MEDS: HEPARIN NA (PORCINE) 5,000 UNITS/ML 1ML VIAL SQ SCH ×2 (06:36→14:59)
[2016-12-26] MEDS: LEVOTHYROXINE NA 25 MCG TABLET (FP) PO SCH (06:36)
[2016-12-26] MEDS ORDERED: INSULIN (NOVOLOG) ASPART 100 UNITS/ML 10ML VIAL ONE (06:42)
[2016-12-26] MEDS: INSULIN (NOVOLOG) ASPART 100 UNITS/ML 10ML VIAL SQ SCH ×4 (06:45→16:49)
[2016-12-26] MEDS: INSULIN DETEMIR 100 UNITS/ML MDV SQ SCH (06:46)
[2016-12-26 07:35] LABS: BASOPHIL 0.5 % (0-2.0); EOSINOPHIL 2.7 % (0-4.5); MCH 27.9 pg (25.7-33.7); MCHC 33.1 g/dl (32.0-36.0); MEAN CELL VOLUME 84.4 fl (80-96); MEAN PLT VOLUME 9.8 fl (7.5-11.1); NEUTROPHILS 40.8 % (42.8-82.8); PLATELET COUNT 130 K/MM3 (134-434); RDW 14.2 % (11.6-15.6); WHITE BLOOD COUNT 5.6 K/mm3 (4.0-10.0)
[2016-12-26 08:40] LABS: ANION GAP 9 (8-16); CO2 28 mmol/L (21-32); CREATININE 0.7 mg/dL (0.55-1.02); GLUCOSE,RANDOM 193 mg/dL (74-106)
[2016-12-26] MEDS: CARVEDILOL 3.125 MG TABLET (FP) PO SCH (09:14)
[2016-12-26] MEDS: PANTOPRAZOLE 40 MG TABLET (FP) PO SCH (09:14)
--- NOTE | 2016-12-26 10:30 | PN ---
Progress Note, Physician History of Present Illness: PULMONARY ALERT,FEELING BETTER,-CP,-SOB. SLEEP SCREEN + MILD-MODERATE OSAS AHI 13.8 - Current Medication List Current Medications: Active Medications Atorvastatin Calcium (Lipitor -) 20 mg PO HS [facility] Last Admin: 12/25/16 21:39 Dose: 20 mg Carvedilol (Coreg -) 3.125 mg PO BID [facility] Last Admin: 12/26/16 09:14 Dose: 3.125 mg Gabapentin (Neurontin -) 300 mg PO TID [facility] Last Admin: 12/26/16 06:35 Dose: 300 mg Heparin Sodium (Porcine) (Heparin -) 5,000 unit SQ TID [facility] Last Admin: 12/26/16 06:36 Dose: 5,000 unit Insulin Aspart (Novolog Vial) 0 units SQ ACHS [facility] PRN Reason: Protocol Last Admin: 12/26/16 06:45 Dose: 2 units Insulin Detemir (Levemir Vial) 25 units SQ BID@0700,2200 [facility] Last Admin: 12/26/16 06:46 Dose: 25 units Levothyroxine Sodium (Synthroid -) 25 mcg PO DAILY@0700 [facility] Last Admin: 12/26/16 06:36 Dose: 25 mcg Pantoprazole Sodium (Protonix -) 40 mg PO DAILY [facility] Last Admin: 12/26/16 09:14 Dose: 40 mg - Objective Vital Signs: Vital Signs Temperature 97.9 F 12/26/16 05:29 Pulse Rate 67 12/26/16 05:29 Respiratory Rate 20 12/26/16 05:29 Blood Pressure 147/60 12/26/16 05:29 O2 Sat by Pulse Oximetry (%) 96 12/26/16 01:00 Constitutional: Yes: Well Nourished, Calm Eyes: Yes: WNL HENT: Yes: WNL Neck: Yes: WNL Cardiovascular: Yes: Regular Rate and Rhythm, S1, S2 Respiratory: Yes: CTA Bilaterally Gastrointestinal: Yes: Normal Bowel Sounds, Soft Extremities: Yes: WNL Edema: No Labs: CBC, BMP 12/26/16 05:28 12/26/16 05:28 INR, PTT INR 1.20 (0.82-1.09) H 12/24/16 12:00 Problem List - Problems (1) Anxiety Code(s): F41.9 - ANXIETY DISORDER, UNSPECIFIED (2) Chest pain, atypical Code(s): R07.89 - OTHER CHEST PAIN (3) Dyspnea Code(s): R06.00 - DYSPNEA, UNSPECIFIED Qualifiers: Dyspnea type: shortness of breath Qualified Code(s): R06.02 - Shortness of breath; R06.00 - Dyspnea, unspecified; R06.01 - Orthopnea (4) Hyperlipidemia Code(s): E78.5 - HYPERLIPIDEMIA, UNSPECIFIED Qualifiers: Hyperlipidemia type: pure hypercholesterolemia Qualified Code(s): E78.00 - Pure hypercholesterolemia, unspecified; E78.0 - Pure hypercholesterolemia (5) Hypertension Code(s): I10 - ESSENTIAL (PRIMARY) HYPERTENSION Qualifiers: Hypertension type: essential hypertension Qualified Code(s): I10 - Essential (primary) hypertension (6) Low back pain Code(s): M54.5 - LOW BACK PAIN (7) Lumbar radicular pain Code(s): M54.16 - RADICULOPATHY, LUMBAR REGION (8) Vocal cord paralysis syndrome Code(s): J38.00 - PARALYSIS OF VOCAL CORDS AND LARYNX, UNSPECIFIED Assessment/Plan IMP DYSPNEA,CHOKING R/O ASPIRATION, OSAS VOCAL CORD PARALYSIS S/P THYROIDECTOMY H/O RENAL CELL CA S/P R NEPHRECTOMY IDDM HTN HLD PLAN ENT EVAL ASPIRATION PRECAUTIONS PFTS WITH FLOW VOLUME LOOP OUTPATIENT CPAP TITRATION Problem List - Problems (1) Anxiety Code(s): F41.9 - ANXIETY DISORDER, UNSPECIFIED (2) Chest pain, atypical Code(s): R07.89 - OTHER CHEST PAIN (3) Dyspnea Code(s): R06.00 - DYSPNEA, UNSPECIFIED Qualifiers: Dyspnea type: shortness of breath Qualified Code(s): R06.02 - Shortness of breath; R06.00 - Dyspnea, unspecified; R06.01 - Orthopnea (4) Hyperlipidemia Code(s): E78.5 - HYPERLIPIDEMIA, UNSPECIFIED Qualifiers: Hyperlipidemia type: pure hypercholesterolemia Qualified Code(s): E78.00 - Pure hypercholesterolemia, unspecified; E78.0 - Pure hypercholesterolemia (5) Hypertension Code(s): I10 - ESSENTIAL (PRIMARY) HYPERTENSION Qualifiers: Hypertension type: essential hypertension Qualified Code(s): I10 - Essential (primary) hypertension (6) Low back pain Code(s): M54.5 - LOW BACK PAIN (7) Lumbar radicular pain Code(s): M54.16 - RADICULOPATHY, LUMBAR REGION (8) Vocal cord paralysis syndrome Code(s): J38.00 - PARALYSIS OF VOCAL CORDS AND LARYNX, UNSPECIFIED
--- NOTE | 2016-12-26 13:15 | CON.ENT ---
Consult Consult Specialty:: ENT Referred by:: Susana Galan Reason for Consultation:: rule out vocal cord paralysis - History of Present Illness Chief Complaint: hoarseness and swallowing problems History of Present Illness: 66 yo F admitted with breathing trouble for several weeks worsening dysphagia with choking, gasping libby with liquids prior hx lef thyroid ?cyst, left thyroid lobectomy 2012 ([facility]) postop had hoarseness and swallowing trouble dx vocal cord postoperatively eventually after 9 months postop improvement in voice, remained with few symptoms until a few weeks ago. pt also reports some blood from right nose yesterday - History Source History Provided By: Patient, Family Member Limitations to Obtaining History: No Limitations - Past Medical History Cardio/Vascular: Yes: HTN, Hyperlipdemia Endocrine: Yes: Diabetes Mellitus - Past Surgical History Additional Surgical History: thyroidectomy 2012, benign pathology per pt - Alcohol/Substance Use Hx Alcohol Use: No - Smoking History Smoking history: Never smoked Aproximately how many cigarettes per day: 0 - Social History Usual Living Arrangement: With Spouse Home Medications - Allergies Allergies/Adverse Reactions: Allergies Allergy/AdvReac Type Severity Reaction Status Date / Time codeine Allergy Rash Verified 12/24/16 11:46 Penicillins Allergy Rash Verified 12/24/16 11:46 - Home Medications Home Medications: Ambulatory Orders Metformin HCl [Glucophage] 1,000 mg PO BID 10/16/12 Simvastatin [Zocor -] 0 mg PO HS 10/16/12 Carvedilol 3.125 mg PO BID 04/20/14 Esomeprazole Magnesium [Nexium 24Hr] 20 mg PO PRN 12/24/16 Gabapentin [Neurontin -] 300 mg PO TID 12/24/16 Insulin Glargine,Hum.rec.anlog [Lantus (nf)] 50 units SQ HS 12/24/16 Levothyroxine [Synthroid -] 25 mcg PO BID 12/24/16 Family Disease History - Family Disease History Family Disease History: Other: Daughter (alive and well) Physical Exam-ENT Vital Signs: Vital Signs Temperature 98 F 12/26/16 10:00 Pulse Rate 70 12/26/16 10:00 Respiratory Rate 18 12/26/16 10:00 Blood Pressure 134/62 12/26/16 10:00 O2 Sat by Pulse Oximetry (%) 95 09/26/17 09:00 Constitutional: Yes: Well Nourished, No Distress, Calm Head: Yes: WNL Face: Yes: WNL Eyes: Yes: WNL Nose: Yes: Septum Deviated (deviated to right anteriorly, right septum sl dry blood, no active bleeding. no pus or poyp) Oral/Pharynx: Yes: WNL, Other (tongue position 3, soft palate elongated, oropharynx WNL. Flexible laryngoscopy performed: nasopharynx clear, base of tongue normal, vallecula and epiglottis normal endolarynx: normal AE folds, and arytenoids, sl postcricoid edema, false and true vocal cords no lesions, sl thick mucus posteriorly, ++left vocal cord paralysis, midline position, good cord approximation on phonation, right vocal cord mobility WNL. voice sl hoarse , no stridor or respiratory distress) Outer Ear: Yes: WNL Ear Canal: Yes: WNL Tympanic Membrane: Yes: WNL Neck: Yes: Other (no mass or node, healed thyroid scar) Respiratory: Yes: WNL Imaging - Results Chest X-ray: Report Reviewed Cat Scan: Report Reviewed, Image Reviewed Problem List - Problems (1) Vocal cord paralysis syndrome Assessment/Plan: left vocal cord paralysis, s/p left thyroid surgery 2013 for benign disease had improvement in her symptoms after ~9 months postop recent worsening of signs/symptoms of possible aspiration exam today shows no lesions but ++left vocal cord paralysis although VC approximation appears complete on phonation, may have trouble on swallowing Recommend: proceed with modified barium swallow as scheduled follow recommendations as per Cee Sabillon follow up in office after discharge also suggest nasal saline spray or vaseline to nose because of recent nasal bleeding: deviated septum to right and mucosal dryness, no lesion seen. Thank you for consultation, William Zazueta MD FACS Code(s): J38.00 - PARALYSIS OF VOCAL CORDS AND LARYNX, UNSPECIFIED
[2016-12-26] MEDS ORDERED: SODIUM CHLORIDE NASAL SPRAY 44 ML BOTTLE NS PRN (13:41)
[2016-12-26] MEDS ORDERED: PETROLATUM, WHITE 30 GM TUBE TP SCH (14:00)
--- NOTE | 2016-12-26 14:22 | PN ---
Progress Note (short form) - Note Progress Note: Chief Complaint: Events noted, Notes reviewed, denies any further paroxysmal nocturnal dyspnea, denies any chest discomfort History of Present Illness: Seen and examined on telemetry. Events noted, Notes reviewed, denies any further paroxysmal nocturnal dyspnea, denies any chest discomfort Echocardiography revealed normal left ventricular size and function, normal right ventricular size and function, mitral annular calcification, aortic valve leaflet sclerosis, trace to mild mitral valve regurgitation, trace tricuspid valve regurgitation Medications: Current Medications Atorvastatin Calcium (Lipitor -) 20 mg PO HS [facility] Last Admin: 12/25/16 21:39 Dose: 20 mg Carvedilol (Coreg -) 3.125 mg PO BID [facility] Last Admin: 12/26/16 09:14 Dose: 3.125 mg Gabapentin (Neurontin -) 300 mg PO TID [facility] Last Admin: 12/26/16 06:35 Dose: 300 mg Heparin Sodium (Porcine) (Heparin -) 5,000 unit SQ TID [facility] Last Admin: 12/26/16 06:36 Dose: 5,000 unit Insulin Aspart (Novolog Vial) 0 units SQ ACHS [facility] PRN Reason: Protocol Last Admin: 12/26/16 11:53 Dose: 4 units Insulin Detemir (Levemir Vial) 25 units SQ BID@0700,2200 [facility] Last Admin: 12/26/16 06:46 Dose: 25 units Levothyroxine Sodium (Synthroid -) 25 mcg PO DAILY@0700 [facility] Last Admin: 12/26/16 06:36 Dose: 25 mcg Pantoprazole Sodium (Protonix -) 40 mg PO DAILY [facility] Last Admin: 12/26/16 09:14 Dose: 40 mg Petrolatum (Vaseline) 1 applic TP DAILY [facility] Sodium Chloride ([facility] -) 2 spray NS BID PRN PRN Reason: NASAL CONGESTION Review of Systems - Review of Systems Constitutional: No symptoms reported Respiratory: denies: Cough or Sputum Production Cardiovascular: as noted above Gastrointestinal: denies Nausea, Vomiting, Diarrhea, Constipation or Abdominal Pain Genitourinary: No symptoms reported Musculoskeletal: No symptoms reported Endocrine: No symptoms reported Vital Signs: Last Vital Signs Temp Pulse Resp BP Pulse Ox 98 F 70 18 134/62 95 12/26/16 10:00 12/26/16 10:00 12/26/16 10:00 12/26/16 10:00 12/26/16 09:00 Intake & Output 12/23/16 12/24/16 12/25/16 12/26/16 23:59 23:59 23:59 23:59 Intake Total 410 970 240 Balance 410 970 240 Weight 198 lb Constitutional: No Distress, Calm Neck: Supple Negative JVD no bruit appreciated Respiratory: Clear to auscultation and percussion Cardiovascular: S1 S2 Regular Rate and Rhythm Grade 2/6 systolic ejection murmur Gastrointestinal: Soft Benign Normal Bowel Sounds Ext: No Edema Labs: Assessment/Plan ASSESSMENT: 1. Dyspnea and paroxysmal nocturnal dyspnea etiology of which is to be determined, prior history of vocal cord paralysis 2. Coronary artery disease angina pectoris equivalent to be excluded. 3. Diastolic left ventricular dysfunction with class 0 [place] [employer] classification left ventricular failure 4. Hypertension 5. Diabetes mellitus 6. Hypercholesterolemia 7. Exogenous obesity PLAN: 1. Continuation of Coreg therapy 2. Consider the addition of SHAMEKA inhibitor or angiotensin receptor dashawn therapy unless it is contraindicated 3. Continuation of Lipitor therapy 4. Reviewed in detail with the patient and her daughter who was contacted via telephone results of the above-noted echocardiography and advised that additional evaluation is recommended including myocardial perfusion imaging study which can be performed on outpatient basis Rex Nuñez M.D.
[2016-12-26] MEDS ORDERED: PETROLATUM TP SCH (14:40)
[2016-12-26] MEDS ORDERED: [UNRECOGNIZED DRUG - OTHER] TP SCH (14:40)
--- NOTE | 2016-12-26 15:02 | DS ---
Physical Examination Vital Signs: Vital Signs Temperature 98 F 12/26/16 10:00 Pulse Rate 70 12/26/16 10:00 Respiratory Rate 18 12/26/16 10:00 Blood Pressure 134/62 12/26/16 10:00 O2 Sat by Pulse Oximetry (%) 95 12/26/16 09:00 Labs: CBC, BMP 12/26/16 05:28 12/26/16 05:28 Discharge Summary Reason For Visit: DYSPENA Current Active Problems ACS (acute coronary syndrome) (Acute) Anxiety (Acute) Chest pain, atypical (Acute) Dyspnea (Acute) Elevated CPK (Acute) Hyperlipidemia (Acute) Hypertension (Acute) Inability to ambulate due to right hip (Acute) Intractable back pain (Acute) Low back pain (Acute) Lumbar radicular pain (Acute) Trochanteric bursitis (Acute) Type 2 diabetes mellitus (Acute) Vocal cord paralysis syndrome (Acute) Condition: Improved - Instructions Diet, Activity, Other Instructions: Please return to the ED with new, persistent, or worsening symptoms. Please follow-up with providers as indicated. Diet: Regular diet with thin liquids Referrals: Dede Livingston MD [Primary Care Provider] - William Zazueta MD [Staff Physician] - (Please follow-up with Dr. Zazueta (Ear, nose , throat doctor) for further management of your vocal cord paralysis ) Seth Hernandez MD [Staff Physician] - (Please follow-up with cardiology within 1 week to schedule an outpatient myocardial perfusion imaging study and to discuss the addition of an davy inhibitor to your medication regimen. ) Tyler Garcia MD [Staff Physician] - (Please follow-up with pulmonary for outpatient PFTs and flow volume loop. ) Disposition: HOME - Home Medications Comprehensive Discharge Medication List: Ambulatory Orders Metformin HCl [Glucophage] 1,000 mg PO BID 10/16/12 Carvedilol 3.125 mg PO BID 04/20/14 Esomeprazole Magnesium [Nexium 24Hr] 20 mg PO PRN 12/24/16 Gabapentin [Neurontin -] 300 mg PO TID 12/24/16 Levothyroxine [Synthroid -] 25 mcg PO BID 12/24/16 Atorvastatin Ca [Lipitor] 20 mg PO HS #30 tablet 12/26/16 Insulin (Levemir) [Levemir Vial] 25 units SQ BID@0700,2200 #1 ml 12/26/16 Petrolatum - White [Vaseline -] 1 applic TP DAILY applic 12/26/16
[2016-12-26 15:30] VITALS: BP 125/53; PULSE 64; TEMP 98.2
== END 2016-12-26 18:27 | disposition home or self-care (01) ==
LOC: JER 11:40 → UNDOADMOB 15:18 → JERBED 15:18 → INTOOBSV 15:18 → J4W 17:48 → JERBED 17:49 → J4W 17:49
PROVIDERS: ADMIT Internal Medicine; ATTEND Registered Nurse
PROC: 3E033GC Introduction of Other Therapeutic Substance into Peripheral Vein, Percutaneous Approach (ICD-10-PCS; principal; 2016-12-24)
PROC: 3E013VG Introduction of Insulin into Subcutaneous Tissue, Percutaneous Approach (ICD-10-PCS; 2016-12-24)
PROC: 3E013GC Introduction of Other Therapeutic Substance into Subcutaneous Tissue, Percutaneous Approach (ICD-10-PCS; 2016-12-24)
DX: I24.9 Acute ischemic heart disease, unspecified (principal); R07.89 Other chest pain; J38.00 Paralysis of vocal cords and larynx, unspecified; F41.9 Anxiety disorder, unspecified; R74.8 Abnormal levels of other serum enzymes; R06.02 Shortness of breath; E11.40 Type 2 diabetes mellitus with diabetic neuropathy, unspecified; Z79.4 Long term (current) use of insulin; Z79.84 Long term (current) use of oral hypoglycemic drugs; I10 Essential (primary) hypertension; E78.5 Hyperlipidemia, unspecified; M54.5 Low back pain; G89.29 Other chronic pain; E89.0 Postprocedural hypothyroidism; Z88.0 Allergy status to penicillin; Z88.6 Allergy status to analgesic agent; Z85.528 Personal history of other malignant neoplasm of kidney; Z90.5 Acquired absence of kidney; Z90.710 Acquired absence of both cervix and uterus; Z90.49 Acquired absence of other specified parts of digestive tract; Z90.89 Acquired absence of other organs; K21.9 Gastro-esophageal reflux disease without esophagitis; E83.42 Hypomagnesemia; M54.16 Radiculopathy, lumbar region; M70.61 Trochanteric bursitis, right hip; R26.2 Difficulty in walking, not elsewhere classified; Z79.01 Long term (current) use of anticoagulants
CPT/HCPCS: 36415; 36600; 70490-TC; 71010-TC; 74230-TC; 80048; 80053; 81003; 81015; 82375; 82553; 82803; 83050; 83735; 83880; 84100; 84439; 84443; 84481; 84484; 85025; 85610; 85651; 85730; 86140; 86850; 86900; 86901; 92611-GN; 93005; 93010; 93306-TC; 99284-25; G0378; J1644

== ENCOUNTER 2018-10-31 14:58 | Emergency (ER) | payer OTHER ==
[2018-10-31 15:28] VITALS: BMI 33.6
--- NOTE | 2018-10-31 15:30 | PDOC ---
Rapid Medical Evaluation Time Seen by Provider: 10/31/18 15:23 Medical Evaluation: Allergies Allergy/AdvReac Type Severity Reaction Status Date / Time codeine Allergy Rash Verified 10/31/18 15:23 Penicillins Allergy Rash Verified 10/31/18 15:23 10/31/18 15:23 I have performed a brief in-person evaluation of this patient. The patient presents with a chief complaint of: 68 yo F w/ PMHx gastritis, diabetes, HTN, c/o 4 days of diffuse abdominal pain in the epigastric area. 1 episode of NBNB vomiting 2 days ago. (+)decrease in appetite. no CP/SOB No known sick contacts, no recent travel outside the country. Pt took nexium yesterday which did not help. H/o hysterectomy, cholecystectomy, appendectomy, nephrectomy, partial thyroidectomy. Pertinent physical exam findings: Pt in mild distress from pain I have ordered the following: EKG, CBC, CMP, cardiac panel, CXR, RUQ sono R/O common bile duct stone The patient will proceed to the ED for further evaluation. Discharge Disposition - Diagnosis Abdominal pain Qualifiers: Abdominal location: unspecified location Qualified Code(s): R10.9 - Unspecified abdominal pain - Referrals - Patient Instructions - Post Discharge Activity
[2018-10-31] MEDS ORDERED: ACETAMINOPHEN 1000 MG/100 ML VIAL (NON FORMULARY) IVPB ONE (16:36)
[2018-10-31] MEDS ORDERED: PANTOPRAZOLE SODIUM 80 MG in SODIUM CHLORIDE 100 ML IVPB ONE (16:36)
[2018-10-31] MEDS ORDERED: SODIUM CHLORIDE 1,000 ML IV STA (16:42)
--- NOTE | 2018-10-31 16:43 | PDOC ---
History of Present Illness - General Chief Complaint: Pain, Acute Stated Complaint: ABD PAIN Time Seen by Provider: 10/31/18 15:23 History Source: Patient, Family Exam Limitations: No Limitations - History of Present Illness Initial Comments: 10/31/18 17:38 68 yo F pmh DM, HTN presents w/ 4 days of mid-epigastric abdominal pain that occurs after ingestion of food/drink/meds. Pain lasts hours after ingestion, worse in the beginning after ingestion. Pt had one episode of self-induced vomiting to try to alleviate her pain - thought she ate something bad. Denies F/ C/N/V/D, chest pain, SOB, lightheadedness, dizziness, dysuria, hematuria. Able to tolerate PO but has not been eating much b/c pain. No sick contacts. Significant h/o abdominal surgery: cholecystectomy, right nephrectomy, appendectomy, and hysterectomy. PMH: as above, hypothyroid, peripheral neuropathy Surgeries: cholecystectomy, R nephrectomy, appendectomy, hysterectomy Allergies: codeine, PCN Past History - Past Medical History Allergies/Adverse Reactions: Allergies Allergy/AdvReac Type Severity Reaction Status Date / Time codeine Allergy Rash Verified 10/31/18 15:23 Penicillins Allergy Rash Verified 10/31/18 15:23 Home Medications: Ambulatory Orders Mag Hydrox/Al Hydrox/Simeth [Mylanta Suspension -] 10 ml PO BID #1 bottle Sucralfate Oral Suspension [Carafate *Oral Susp*] 1 gm PO BID #220 ml 10/31/18 Cancer: Yes (KIDNEY CA) COPD: No Diabetes: Yes GI Disorders: Yes (GASTRITIS) Disorders: Yes (RIGHT KIDNEY REMOVED) HTN: Yes Hypercholesterolemia: Yes Thyroid Disease: Yes - Surgical History Abdominal Surgery: Yes Appendectomy: Yes Cholecystectomy: Yes - Immunization History Immunization Up to Date: No - Suicide/Smoking/Psychosocial Hx Smoking Status: No Smoking History: Never smoked Number of Cigarettes Smoked Daily: 0 Hx Alcohol Use: No Drug/Substance Use Hx: No Substance Use Type: None Review of Systems - Review of Systems Able to Perform ROS?: Yes Is the patient limited Maltese proficient: Yes Constitutional: Yes: See HPI, Loss of Appetite (due to pain ). No: Chills, Diaphoresis, Fever, Weakness HEENTM: No: Symptoms Reported, See HPI, Eye Pain, Blurred Vision, Tearing, Recent change in vision, Double Vision, Cataracts, Ear Pain, Ocular Prothesis, Ear Discharge, Nose Pain, Nose Congestion, Tinnitus, Nose Bleeding, Hearing Loss , Throat Pain, Throat Swelling, Mouth Pain, Dental Problems, Difficulty Swallowing, Mouth Swelling, Other Respiratory: No: Symptoms reported, See HPI, Cough, Orthopnea, Shortness of Breath, SOB with Exertion, SOB at Rest, Stridor, Wheezing, Productive cough, Hemoptysis, Other Cardiac (ROS): No: Symptoms Reported, See HPI, Chest Pain, Edema, Irregular Heart Rate, Lightheadedness, Palpitations, Syncope, Chest Tightness, Other ABD/GI: Yes: See HPI. No: Blood Streaked Bowels, Constipated, Diarrhea, Nausea , Vomiting, Tarry Stools : No: Burning, Dysuria, Discharge, Frequency, Hematuria, Incontinence, Pain, Urgency Musculoskeletal: No: Symptoms Reported, See HPI, Back Pain, Gout, Joint Pain, Joint Swelling, Muscle Pain, Muscle Weakness, Neck Pain, Joint Stiffness, Other Integumentary: No: Symptoms Reported, See HPI, Bruising, Change in Color, Change in Hair/Nails, Dryness, Erythema, Flushing, Lesions, Lumps, Pallor, Pruritus, Rash, Sweating, Other Neurological: No: Symptoms reported, See HPI, Headache, Numbness, Paresthesia, Pre-Existing Deficit, Seizure, Tingling, Tremors, Weakness, Unsteady Gait, Ataxia, Dizziness, Other Psychiatric: No: Anxiety, Depression, Frequent Crying, Stressors, Sleep Pattern Change, Emotional Problems, Mood Swings, Change in Appetite, Other Endocrine: No: Symptoms Reported, See HPI, Excessive Sweating, Flushing, Intolerance to Cold, Intolerance to Heat, Increased Hunger, Increased Thirst, Increased Urine, Unexplained Weight Gain, Unexplained Weight Loss, Change in Weight, Other Hematologic/Lymphatic: No: Symptoms Reported, See HPI, Anemia, Blood Clots, Easy Bleeding, Easy Bruising, Bleeding Diathesis, Lymph Node Abnormalities, Swollen Glands, Other All Other Systems: Reviewed and Negative *Physical Exam - Vital Signs Last Vital Signs Temp Pulse Resp BP Pulse Ox 98.3 F 76 18 116/83 100 10/31/18 15:24 10/31/18 15:24 10/31/18 15:24 10/31/18 15:24 10/31/18 15:24 - Physical Exam Comments: 10/31/18 17:45 GEN: Resting comfortably in bed, NAD. HEENT: NC/AT, EOMI, PERRLA, CN II-XII intact. Moist mucous membranes. CV: S1/S2, RRR, no m/r/g LUNG: CTAB, no wheezes, crackles, rales, rhonchi GI: (+)TTP at the midepigastrum with deep palpation. Scar of the right costal margin. Otherwise, soft and nondistended. (+)BS. No CVAT. ED Treatment Course - LABORATORY CBC & Chemistry Diagram: 10/31/18 16:30 10/31/18 16:30 Medical Decision Making - Medical Decision Making 10/31/18 16:40 68 yo F pmh DM, HTN presents w/ 4 days of mid-epigastric abdominal pain occurring after ingestion w/o F/C/N/V/D. Exam notable for midepigastric tenderness to deep palpation. DDx - gastric ulcer, duodenal ulcer, gastritis, pancreatitis, SBO, ACS, biliary process. unlikely mesenteric ischemic Abdominal pain - CBC, CMP, lipase, cardiac - UA - EKG - protonix, pain control, NS 10/31/18 23:00 Patient responded well to morphine and carafate. She was able to tolerate fluids and crackers with no pain. Team found out patient has been on a keto diet that is egg heavy and took motrin this AM. Advised patient to eat a healthy balanced diet low in sugar, carbs, and fat. Advised patient to speak to her PCP regarding keto diet vs alternative balanced diets. Advised patient to avoid any NSAIDs for pain control given likelihood she has an ulcer. Dispo home with GI and PCP f/u *DC/Admit/Observation/Transfer Diagnosis at time of Disposition: Abdominal pain Qualifiers: Abdominal location: unspecified location Qualified Code(s): R10.9 - Unspecified abdominal pain - Discharge Dispostion Disposition: HOME Condition at time of disposition: Stable Decision to Admit order: No - Prescriptions Prescriptions: Mag Hydrox/Al Hydrox/Simeth [Mylanta Suspension -] 10 ml PO BID #1 bottle Sucralfate Oral Suspension [Carafate *Oral Susp*] 1 gm PO BID #220 ml - Referrals Referrals: Dede Livingston MD [Primary Care Provider] - - Patient Instructions Printed Discharge Instructions: DI for Abdominal Pain-Adult Additional Instructions: You were evaluated and treated in the Emergency Department today. Further evaluation of your symptoms is required. We will be sending a prescription to your pharmacy, please pick it up and take as instructed. Please follow up with your Automotive Manufacturer within the next 1-3 days for further evaluation. Please follow up with your Primary Care Doctor within a week. Return to the Emergency Department if you experience any of the following: - Worsening abdominal pain - Vomiting - Bloody bowel movements - High fever - any symptoms that concerns you - Post Discharge Activity
[2018-10-31] MEDS ORDERED: ACETAMINOPHEN INJECTION 100 ML IVPB ONE (16:55)
[2018-10-31] MEDS ORDERED: PANTOPRAZOLE SODIUM 40 MG VIAL ONE (16:55)
[2018-10-31] MEDS ORDERED: PANTOPRAZOLE SODIUM 40 MG VIAL IVPUSH ONE (16:56)
[2018-10-31 16:58] LABS: BASO % 0.6 % (0-2.0); HEMATOCRIT 39.9 % (32.4-45.2); HEMOGLOBIN 13.2 GM/dL (10.7-15.3); LYMPH % 36.3 % (8-40); MCH 27.9 pg (25.7-33.7); MCHC 33.1 g/dl (32.0-36.0); MEAN CELL VOLUME 84.2 fl (80-96); MEAN PLT VOLUME 8.8 fl (7.5-11.1); MONO % 6.6 % (3.8-10.2); NEUT % 54.5 % (42.8-82.8); PLATELET COUNT 159 K/MM3 (134-434); RBC 4.74 M/mm3 (3.60-5.2); RDW 14.6 % (11.6-15.6)
[2018-10-31 17:05] LABS: PH,URINE 5.5 (5.0-8.0); URINE APPEARANCE CLEAR; URINE BILIRUBIN NEGATIVE (NEGATIVE); URINE COLOR YELLOW; URINE GLUCOSE (UA) NEGATIVE (NEGATIVE); URINE KETONE NEGATIVE (NEGATIVE); URINE LEUK ESTERASE NEGATIVE (NEGATIVE); URINE NITRITE NEGATIVE (NEGATIVE); URINE PROTEIN NEGATIVE (NEGATIVE); URINE UROBILINOGEN 0.2 mg/dL (0.2-1.0)
[2018-10-31] MEDS ORDERED: MAG HYDROX/AL HYDROX/SIMETH 30 ML UNIT-DOSE CUP PO ONE (17:05)
[2018-10-31 17:10] LABS: INR 1.23 (0.83-1.09); PROTHROMBIN TIME (PATIENT) 14.5 SEC (9.7-13.0)
[2018-10-31] MEDS ORDERED: MAG HYDROX/AL HYDROX/SIMETH 30 ML UNIT-DOSE CUP ONE (17:12)
[2018-10-31 18:02] LABS: ALK PHOS 69 U/L (45-117); ANION GAP 12 MMOL/L (8-16); BILIRUBIN,TOTAL 0.7 mg/dL (0.2-1); BLOOD UREA NITROGEN 10.8 mg/dL (7-18); CALCIUM 9.7 mg/dL (8.5-10.1); CHLORIDE 101 mmol/L (98-107); CO2 26 mmol/L (21-32); CREATININE 0.9 mg/dL (0.55-1.3); GLUCOSE,RANDOM 171 mg/dL (74-106); POTASSIUM 3.8 mmol/L (3.5-5.1); SGOT/AST 32 U/L (15-37); SGPT/ALT 51 U/L (13-61); SODIUM 139 mmol/L (136-145); TOT PROT 8.1 g/dl (6.4-8.2)
--- NOTE | 2018-10-31 18:24 | PDOC ---
Documentation entered by Ivana Reddy SCRIBE, acting as scribe for Deonte Godoy MD. Deonte Godoy MD: This documentation has been prepared by the milagroibe, Ivana Reddy SCRIBE, under my direction and personally reviewed by me in its entirety. I confirm that the documentation accurately reflects all work, treatment, procedures, and medical decision making performed by me. Attending Attestation - Resident Resident Name: BooRanjan - ED Attending Attestation I have performed the following: I have examined & evaluated the patient, The case was reviewed & discussed with the resident, I agree w/resident's findings & plan, Exceptions are as noted - HPI HPI: 10/31/18 17:11 The patient is a 68 year-old female, with a past medical history of HTN, HLD, GERD, IDDM, diabetic neuropathy, lumbar disc disease with sciatica s/p L4-L5 laminectomy (2014), s/p partial thyroidectomy with vocal cord damage sequelae ( 2012), renal cancer s/p right nephrectomy (2009, no radiation/no chemo), who presents to the ED with 4-5 days of epigastric pain. Patient states that the pain is intermittent, crampy in sensation, worsened after PO intake, and accompanied by loose, watery stools. LBM was today. The patient denies any fevers, chills, nausea, vomiting, constipation. Denies any chest pain, palpitations, or shortness of breath. Denies any headache, weakness, dizziness, lightheadedness, or changes in sensation or strength. Allergies: Codeine, penicillins. Surgical Hx: cholecystectomy, nephrectomy, thyroidectomy, laminectomy, hysterectomy. PCP: Dr. Kilgore-Cedric - Physicial Exam PE: 10/31/18 17:14 GENERAL: Awake, alert, and fully oriented, in no acute distress. HEAD: No signs of trauma EYES: PERRLA, EOMI, sclera anicteric, conjunctiva clear ENT: Auricles normal inspection, hearing grossly normal, nares patent, oropharynx clear without exudates. Moist mucosa NECK: Nontender, no stepoffs, Normal ROM, supple, no lymphadenopathy, JVD, or masses LUNGS: Breath sounds equal, clear to auscultation bilaterally. No wheezes, and no crackles HEART: Regular rate and rhythm, normal S1 and S2, no murmurs, rubs or gallops ABDOMEN: + epigastric TTP, normoactive bowel sounds. No guarding, no rebound. No masses EXTREMITIES: Normal range of motion, no edema. No clubbing or cyanosis. No cords, erythema, or tenderness NEUROLOGICAL: Cranial nerves II through XII intact. 5/5 strength and sensation in all extremities, Normal speech, normal gait, normal cerebellar function SKIN: Warm, Dry, normal turgor, no rashes or lesions noted. - Medical Decision Making 10/31/18 18:27 68 F with abdominal pain and diarrhea. Exam notable for epigastric TTP. Possible gastritis/PUD. Also consider gastroenteritis. However, given multiple abdominal surgeries, will obtain abdominal imaging. - Labs, trop, lipase, lactate - CTAP - GI cocktail Pt signed out to oncoming attending, Dr. Tipton, at 7PM, pending imaging and re- evaluation
[2018-10-31] MEDS ORDERED: morphine CARPU-JECT 4 MG/1 ML DISP.SYRIN IVPUSH ONE (18:33)
[2018-10-31] MEDS ORDERED: MORPHINE SULFATE 2 MG/ML VIAL ONE (18:40)
[2018-10-31] MEDS ORDERED: SUCRALFATE 1 GM/10 ML UNIT DOSE CUPS PO ONE (20:47)
[2018-10-31 23:07] VITALS: BP 126/55; PULSE 68; TEMP 98.6
[2018-11-01 05:07] LABS: MAGNESIUM 1.5 mg/dL (1.8-2.4); PHOSPHOROUS 3.4 mg/dL (2.5-4.9)
--- NOTE | 2018-11-01 14:17 | EKG ---
Test Reason : Blood Pressure : / mmHG Vent. Rate : 062 BPM Atrial Rate : 062 BPM P-R Int : 130 ms QRS Dur : 068 ms QT Int : 358 ms P-R-T Axes : 050 001 134 degrees QTc Int : 363 ms NORMAL SINUS RHYTHM CANNOT RULE OUT ANTERIOR INFARCT , AGE UNDETERMINED NONSPECIFIC ST ABNORMALITY ABNORMAL ECG Confirmed by HEIDI FLOWERS MD ([id number]) on 11/01/2018 2:17:09 PM Referred By: Confirmed By:HEIDI FLOWERS MD
== END 2018-10-31 23:08 | disposition home or self-care (01) ==
LOC: JER 14:58
PROC: 3E0337Z Introduction of Electrolytic and Water Balance Substance into Peripheral Vein, Percutaneous Approach (ICD-10-PCS; principal; 2018-10-31)
PROC: 3E033GC Introduction of Other Therapeutic Substance into Peripheral Vein, Percutaneous Approach (ICD-10-PCS; 2018-10-31)
PROC: 3E033NZ Introduction of Analgesics, Hypnotics, Sedatives into Peripheral Vein, Percutaneous Approach (ICD-10-PCS; 2018-10-31)
PROC: 3E033NZ Introduction of Analgesics, Hypnotics, Sedatives into Peripheral Vein, Percutaneous Approach (ICD-10-PCS; 2018-10-31)
DX: R10.9 Unspecified abdominal pain (principal); I10 Essential (primary) hypertension; E78.5 Hyperlipidemia, unspecified; E11.40 Type 2 diabetes mellitus with diabetic neuropathy, unspecified; Z79.1 Long term (current) use of non-steroidal anti-inflammatories (NSAID); Z85.528 Personal history of other malignant neoplasm of kidney; Z90.5 Acquired absence of kidney; E89.0 Postprocedural hypothyroidism
CPT/HCPCS: 36415; 71045-TC-FY; 74177-TC; 76705-TC; 80053; 81003; 82550; 82553; 83605; 83690; 83735; 84100; 84484; 85025; 85610; 86850; 86900; 86901; 87086; 87186; 93005; 93010; 99284-25; J0131; J7030

== ENCOUNTER 2018-11-29 09:58 | Inpatient (IN) | payer OTHER ==
[2018-11-29] MEDS ORDERED: ACETAMINOPHEN 1000 MG/100 ML VIAL (NON FORMULARY) IVPB ONE (11:18)
[2018-11-29] MEDS ORDERED: ACETAMINOPHEN INJECTION 100 ML IVPB ONE (11:24)
[2018-11-29 11:46] LABS: BASO % 1.1 % (0-2.0); EOS % 0.8 % (0-4.5); HEMATOCRIT 28.9 % (32.4-45.2); HEMOGLOBIN 9.5 GM/dL (10.7-15.3); LYMPH % 18.4 % (8-40); MCH 27.6 pg (25.7-33.7); MEAN CELL VOLUME 83.6 fl (80-96); MEAN PLT VOLUME 8.5 fl (7.5-11.1); MONO % 8.6 % (3.8-10.2); NEUT % 71.1 % (42.8-82.8); PLATELET COUNT 330 K/MM3 (134-434); RBC 3.45 M/mm3 (3.60-5.2); RDW 14.9 % (11.6-15.6)
[2018-11-29 12:20] LABS: ALBUMIN 2.6 g/dl (3.4-5.0); BILIRUBIN,TOTAL 0.5 mg/dL (0.2-1); BLOOD UREA NITROGEN 9.2 mg/dL (7-18); CREATININE 0.9 mg/dL (0.55-1.3); POTASSIUM 4.1 mmol/L (3.5-5.1); TOT PROT 7.2 g/dl (6.4-8.2)
--- NOTE | 2018-11-29 12:39 | PDOC ---
History of Present Illness - General Chief Complaint: Pain Stated Complaint: PAIN Time Seen by Provider: 11/29/18 10:34 History Source: Patient, Family Exam Limitations: No Limitations - History of Present Illness Initial Comments: 11/29/18 11:30 Catherine Mauricio is a 68F with PMH IDDM w/neuropathy, HTN, R nephrectomy 2/2 tumor, chronic lower back pain s/p L3/L4 laminectomy, gout, appendectomy, cholecystectomy, hysterectomy, thyroidectomy w/ vocal cord injury presenting with new onset neck and L foot pain. Patient's daughter present to assist with PMH. Patient has had 3 days of worsening L foot pain and swelling to entire foot at all times of the day, says it is a pain like gout pain and is worse than normal foot neuropathy. Able to ambulate normally but pain has worsened over last few days, spread up through leg and up to L knee. Chronic left leg numbness from lower back injury even s/p laminectomy. Has had gout in foot before, but cannot get colchicine 2/2 nephrectomy and renal impairment, told to take allopurinol PRN and has done so but pain has not improved. Trialled acetaminophen to no effect. Also having neck pain that radiates to shoulders that is new starting today, says it feels like her back pain but in her neck. Recently discharged from hospital, had endoscopy done with complication of duodenal perforation, treated with IV Abx. Home PT requested but not started 2/2 PT rescheduling. Past History - Past Medical History Allergies/Adverse Reactions: Allergies Allergy/AdvReac Type Severity Reaction Status Date / Time codeine Allergy Rash Verified 11/29/18 10:15 Penicillins Allergy Rash Verified 11/29/18 10:15 Home Medications: Ambulatory Orders Allopurinol [Zyloprim -] 100 mg PO DAILY 11/29/18 Ciprofloxacin [Cipro (Restricted To Id)] 500 mg PO Q12H 11/29/18 Gabapentin [Neurontin] 300 mg PO BID 11/29/18 Insulin (LOG) Aspart [NovoLOG -] 0 units SQ AC 11/29/18 Insulin Glargine,Hum.rec.anlog [Lantus Solostar PEN (NF)] 50 units SQ HS Levothyroxine Sodium [Levoxyl] 50 mcg PO DAILY 11/29/18 Metformin HCl [Glucophage] 500 mg PO BID 11/29/18 Omeprazole 40 mg PO DAILY 11/29/18 metroNIDAZOLE [Metronidazole] 500 mg PO TID 11/29/18 Cancer: Yes (KIDNEY CA) COPD: No Diabetes: Yes GI Disorders: Yes (GASTRITIS) Disorders: Yes (RIGHT KIDNEY REMOVED) HTN: Yes Hypercholesterolemia: Yes Thyroid Disease: Yes Other medical history: perf divertic s/p scope 11/18 - Surgical History Abdominal Surgery: Yes Appendectomy: Yes Cholecystectomy: Yes - Immunization History Immunization Up to Date: No - Suicide/Smoking/Psychosocial Hx Smoking Status: No Smoking History: Never smoked Number of Cigarettes Smoked Daily: 0 Hx Alcohol Use: No Drug/Substance Use Hx: No Substance Use Type: None Review of Systems - Review of Systems Able to Perform ROS?: Yes Is the patient limited Indonesian proficient: Yes Constitutional: Yes: Fever (to 100.1). No: Weakness HEENTM: No: Blurred Vision, Hearing Loss, Throat Pain Respiratory: No: Cough, Shortness of Breath, Wheezing Cardiac (ROS): No: Chest Pain, Irregular Heart Rate, Palpitations ABD/GI: No: Constipated, Diarrhea, Nausea, Vomiting : No: Burning, Dysuria, Discharge, Frequency, Flank Pain, Hematuria Musculoskeletal: Yes: Gout (R foot), Joint Pain (L knee), Neck Pain Integumentary: No: Symptoms Reported Neurological: Yes: Numbness (L thigh), Unsteady Gait. No: Headache Endocrine: No: Symptoms Reported Hematologic/Lymphatic: No: Symptoms Reported All Other Systems: Reviewed and Negative *Physical Exam - Vital Signs Last Vital Signs Temp Pulse Resp BP Pulse Ox 98.4 F 92 H 18 137/60 96 11/29/18 10:15 11/29/18 10:15 11/29/18 10:15 11/29/18 10:15 11/29/18 10:15 - Physical Exam General Appearance: Yes: Nourished, Appropriately Dressed, Apparent Distress HEENT: positive: EOMI, KIKE, Normal Voice, Pharynx Normal. negative: Scleral Icterus (R), Scleral Icterus (L), Muffled/Hoarse voice, Pharyngeal Erythema, Tonsillar Exudate, Tonsillar Erythema, Hearing Decreased, Lesions (neck tender to light palpation both sides, pain with movement at shoulder), Causey Neck: positive: Tender, Trachea midline, Supple, Decreased range of motion (2/2 pain), Other (tender to LT bilaterally, pain with neck motion and shoulder movement, no bony tenderness or step-offs). negative: Lymphadenopathy (R), Lymphadenopathy (L) Respiratory/Chest: positive: Lungs Clear, Normal Breath Sounds. negative: Respiratory Distress, Crackles, Rales, Rhonchi Cardiovascular: positive: Regular Rhythm, Regular Rate. negative: Edema, Murmur Gastrointestinal/Abdominal: positive: Normal Bowel Sounds, Flat. negative: Tender, Soft, Guarding, Rebound Musculoskeletal: positive: Normal Inspection. negative: CVA Tenderness Extremity: positive: Other (RLE: tender dorsum and sole of foot to LT, no signs of fx or injury, some mild erythema to dorsal midfoot, pulses present, mild swelling compared to R foot, full ROM and 5/5 motor, R knee tender to palpation , no deviation of patella or signs of injury.) Neurologic: positive: embedded systems software engineer II-XII NML intact, Fully Oriented, Alert, Normal Mood/ Affect, Normal Response, Motor Strength 5/5 (no signs of neuro deficits to upper or lower extremities) ED Treatment Course - LABORATORY CBC & Chemistry Diagram: 11/29/18 11:26 11/29/18 11:26 - ADDITIONAL ORDERS Additional order review: Laboratory Results 11/29/18 11/29/18 11:26 11:26 Sodium 137 Potassium 4.1 Chloride 102 Carbon Dioxide 27 Anion Gap 7 L BUN 9.2 Creatinine 0.9 Est GFR (CKD-EPI)AfAm 76.68 Est GFR (CKD-EPI)NonAf 66.16 Random Glucose 258 H Uric Acid 5.1 Calcium 9.0 Total Bilirubin 0.5 AST 16 ALT 13 Alkaline Phosphatase 56 Total Protein 7.2 Albumin 2.6 L 11/29/18 11:26 RBC 3.45 L MCV 83.6 MCHC 33.0 RDW 14.9 MPV 8.5 Neutrophils % 71.1 D Lymphocytes % 18.4 D Monocytes % 8.6 Eosinophils % 0.8 Basophils % 1.1 - RADIOLOGY Radiology Studies Ordered: Category Date Time Status CERVICAL SPINE CT W/O CONTR [CT] Stat CT Scan 11/29/18 12:20 Taken FOOT-LEFT [RAD] Stat Radiology 11/29/18 11:13 Ordered - Medications Given in the ED: ED Medications Discontinued Medications Generic Name Dose Route Start Last Admin Trade Name Freq PRN Reason Stop Dose Admin Acetaminophen 1,000 mg 11/29/18 11:18 11/29/18 11:40 Ofirmev Injection - IVPB 11/29/18 11:19 1,000 mg ONCE ONE Administration Medical Decision Making - Medical Decision Making 11/29/18 11:30 Catherine Mauricio is a 68F with PMH IDDM, HTN, R nephrectomy 2/2 tumor, chronic lower back pain s/p L3/L4 laminectomy, appendectomy, cholecystectomy, hysterectomy, thyroidectomy w/ vocal cord injury presenting with new onset neck and L foot pain. Patient presentation notable for foot pain as well as neck/shoulder pain. Unlikely to be related in terms of etiology unless there is a spinal cord lesion or metastatic spread to bones, but unlikely. Ddx for foot pain includes gout flare vs. worsening neuropathy vs. DVT vs. mechanical injury to foot, although foot does not show any signs of infection or damage. Ddx for neck pain includes bilateral radiculopathy vs. MSK strain of neck muscles. Will evaluate via: CMP CBC Uric acid XR L foot CT cervical spine 11/29/18 13:52 No acute pathology noted on CT or XR. Foot pain likely 2/2 gout, neck pain likely MSK issue. Called CM to set up home PT. 11/29/18 16:39 Re-assessed, patient still having neck pain and is unable to stand or move out of bed on her own despite morphine and Valium. Cannot send home if patient unable to ambulate for perform ADLs. 11/29/18 17:[address] Nieves under Dr. Villanueva. *DC/Admit/Observation/Transfer Diagnosis at time of Disposition: Severe pain, Neck pain, Unable to walk Foot pain Qualifiers: Laterality: left Qualified Code(s): M79.672 - Pain in left foot - Discharge Dispostion Decision to Admit order: Yes - Referrals Referrals: Dede Livingston MD [Primary Care Provider] - - Patient Instructions - Post Discharge Activity
[2018-11-29] MEDS ORDERED: morphine CARPU-JECT 2 MG/1 ML DISP.SYRIN IVPUSH ONE (13:57)
[2018-11-29] MEDS ORDERED: diazePAM 2 MG TABLET PO ONE ×2 (13:57→21:41)
[2018-11-29] MEDS ORDERED: predniSONE 20 MG TABLET (UD) PO ONE (14:00)
[2018-11-29] MEDS ORDERED: predniSONE 20 MG TABLET (UD) ONE (14:25)
[2018-11-29] MEDS ORDERED: MORPHINE SULFATE 2 MG/ML VIAL ONE (14:26)
[2018-11-29] MEDS ORDERED: diazePAM 2 MG TABLET ONE (14:26)
--- NOTE | 2018-11-29 14:34 | PDOC ---
Documentation entered by Ivana Reddy SCRIBE, acting as scribe for Ana Ornelas MD. Ana Ornelas MD: This documentation has been prepared by the scribe, Ivana Reddy SCRIBE, under my direction and personally reviewed by me in its entirety. I confirm that the documentation accurately reflects all work, treatment, procedures, and medical decision making performed by me. Attending Attestation - Resident Resident Name: Ron Guerra - ED Attending Attestation I have performed the following: I have examined & evaluated the patient, The case was reviewed & discussed with the resident, I agree w/resident's findings & plan, Exceptions are as noted - HPI HPI: 11/29/18 11:40 The patient is a 68-year-old female, with a past medical history of kidney CA ( RT kidney removed), DM, gastritis, GOUT, HTN, HLD, thyroid disease, who presents to the ED with a few days of LT foot pain and neck pain that began this morning. Patient states that the LT foot pain feels like her typical gout flare up and has been progressively worsening. She woke up this morning and reports that she was unable to move her neck to either side due to pain. The patient denies any fevers, chills, nausea, vomiting, diarrhea, or abdominal pain. Denies any chest pain, palpitations, or shortness of breath. Denies any headache, weakness, dizziness, lightheadedness, or changes in strength or sensation. Allergies: Codeine, penicillins. PCP: Dr. Kilgore-Cedric - Physicial Exam PE: 11/29/18 11:41 GENERAL: Awake, alert, and fully oriented, in no acute distress HEAD: No signs of trauma EYES: PERRLA, EOMI, sclera anicteric, conjunctiva clear ENT: Auricles normal inspection, hearing grossly normal, nares patent, oropharynx clear without exudates. Moist mucosa NECK: Normal ROM, supple, no lymphadenopathy, JVD, or masses. + paraspinal diffuse tenderness, without erythema or mass LUNGS: Breath sounds equal, clear to auscultation bilaterally. No wheezes, and no crackles HEART: Regular rate and rhythm, normal S1 and S2, no murmurs, rubs or gallops ABDOMEN: Soft, nontender, normoactive bowel sounds. No guarding, no rebound. No masses EXTREMITIES: Normal range of motion, no edema. No clubbing or cyanosis. No cords, erythema, or tenderness. + small area of erythema on dorsum of L foot. + diffuse tenderness of the LLE. NEUROLOGICAL: Cranial nerves II through XII grossly intact. Normal speech. SKIN: Warm, Dry, normal turgor, no rashes or lesions noted. 11/29/18 14:34 - Medical Decision Making 11/29/18 14:05 Pt presents to the ED complaining of atraumatic bilateral neck pain and L foot pain consistent with prior episodes of gout. also reports three days of low grade fever. Unlikely to be menigitis given supple neck and lack of NG. CT cervical spine negative for bony abnormalities. Will treat with valium and tylenol and reassess. Will consider admission if pain does not improve. Also complaining of pain in the foot and ankle consistent with prior episodes of gout. Will treat with steroids and pain control and reassess.
[2018-11-29 15:35] LABS: URINE APPEARANCE TURBID; URINE BILIRUBIN NEGATIVE (NEGATIVE); URINE COLOR YELLOW; URINE GLUCOSE (UA) NEGATIVE (NEGATIVE); URINE KETONE NEGATIVE (NEGATIVE); URINE LEUK ESTERASE NEGATIVE (NEGATIVE); URINE NITRITE NEGATIVE (NEGATIVE); URINE PROTEIN NEGATIVE (NEGATIVE); URINE UROBILINOGEN 0.2 mg/dL (0.2-1.0)
[2018-11-29] MEDS ORDERED: CYCLOBENZAPRINE HCL 10 MG TABLET (FP) PO ONE (18:03)
--- NOTE | 2018-11-29 18:18 | HP ---
CHIEF COMPLAINT: neck and foot pain PCP: Dr. Livingston; pain doctor: dr. davis HISTORY OF PRESENT ILLNESS: 68 y/o female with PMH of kidney ca (s/p right nephrectomy in 2014) DM, gout, HTN, HLD, herniated disc s/p laminectomy in 2014 presents to the ED with complaints of left foot pain and also B/L neck pain-of note patient was hospitalized at [facility] last week after she had an endoscopy and CT which showed perforated diverticulum, complicated by e-coli bacteremia and she was treated with a course of cipro/flagyl which she just finished yesterday. she states the pain on her left foot started around 3 days ago- she states it feels like her normal gout flare up and she took extra llupurinol however it did not help. In terms of her neck pain she states that a few days ag she felt when she was sleeping that she had some tension in her muscles however it felt ok after she massages it, and yesterday she woke up and was in a lot of pain in both side of her neck- she feels that the pain is radiating up from her shouldrs into her neck- she denies any headaches/vision changes/ no numbness/tingling ER course was notable for: (1)vitals (2)Hgb 9.5 (last time here it was 12) (3)foot xray and chest CT negative for any acuet pathology (4) given 1gram tylenol; valium;morphine;prednisone 40mg Recent Travel: came back from [place] a few weeks ago PAST MEDICAL HISTORY: see above PAST SURGICAL HISTORY: s/p cholecystectomy; right nephrectomy; t3-t4 laminectomy 2014 Social History: Smoking:denies Alcohol:denies Drugs: denies Family History: father: on brain tumor and heart disease; mother:DM Allergies codeine Allergy (Verified 11/29/18 10:15) Rash Penicillins Allergy (Verified 11/29/18 10:15) Rash HOME MEDICATIONS: Home Medications Medication Instructions Recorded Allopurinol [Zyloprim -] 100 mg PO DAILY 11/29/18 Ciprofloxacin [Cipro (Restricted 500 mg PO Q12H 11/29/18 To Id)] Gabapentin [Neurontin] 300 mg PO BID 11/29/18 Insulin (LOG) Aspart [NovoLOG -] 0 units SQ AC 11/29/18 Insulin Glargine,Hum.rec.anlog 50 units SQ HS 11/29/18 [Lantus Solostar PEN (NF)] Levothyroxine Sodium [Levoxyl] 50 mcg PO DAILY 11/29/18 Metformin HCl [Glucophage] 500 mg PO BID 11/29/18 Omeprazole 40 mg PO DAILY 11/29/18 metroNIDAZOLE [Metronidazole] 500 mg PO TID 11/29/18 REVIEW OF SYSTEMS CONSTITUTIONAL: Absent: fever, chills, diaphoresis, generalized weakness, malaise, loss of appetite, weight change HEENT: Absent: rhinorrhea, nasal congestion, throat pain, throat swelling, difficulty swallowing, mouth swelling, ear pain, eye pain, visual changes CARDIOVASCULAR: Absent: chest pain, syncope, palpitations, irregular heart rate, lightheadedness , peripheral edema RESPIRATORY: Absent: cough, shortness of breath, dyspnea with exertion, orthopnea, wheezing, stridor, hemoptysis GASTROINTESTINAL: Absent: abdominal pain, abdominal distension, nausea, vomiting, diarrhea, constipation, melena, hematochezia GENITOURINARY: Absent: dysuria, frequency, urgency, hesitancy, hematuria, flank pain, genital pain MUSCULOSKELETAL: Present: myalgia, arthralgia, neck pain Absent: joint swelling, back pain, SKIN: Absent: rash, itching, pallor HEMATOLOGIC/IMMUNOLOGIC: Absent: easy bleeding, easy bruising, lymphadenopathy, frequent infections ENDOCRINE: Absent: unexplained weight gain, unexplained weight loss, heat intolerance, cold intolerance NEUROLOGIC: Absent: headache, focal weakness or paresthesias, dizziness, unsteady gait, seizure, mental status changes, bladder or bowel incontinence PSYCHIATRIC: Absent: anxiety, depression, suicidal or homicidal ideation, hallucinations. PHYSICAL EXAMINATION Vital Signs - 24 hr 11/29/18 11/29/18 10:15 14:20 Temperature 98.4 F Pulse Rate 92 H Pulse Rate [ 78 Right Radial] Respiratory 18 18 Rate Blood Pressure 137/60 Blood Pressure 149/62 [Right Arm] O2 Sat by Pulse 96 96 Oximetry (%) GENERAL: Awake, alert, and fully oriented, in slight acute distress. EYES: PEERLA: EOMI; no scleral icterus NECK: able to turn abut 45 degreees left and right LUNGS: CTA B/L; no rales, rhonchi or wheezing HEART: Regular rate and rhythm, normal S1 and S2 without murmur, rub or gallop. ABDOMEN: Soft, nontender, not distended, normoactive bowel sounds, no guarding, no rebound, no masses. No hepatomegaly or splenomegaly. MUSCULOSKELETAL: Normal range of motion at all joints. No bony deformities or tenderness. No CVA tenderness. EXTREMITIES: left lower foot redness at mid dorsum- full ROM BL; sensation intact throughout warm; well-perfused no edema NEUROLOGICAL: Cranial nerves II-XII intact. Normal speech. strength 5/5 B/L UE ; LE sensation intact throouhgout SKIN: Warm, dry, normal turgor, no rashes or lesions noted, normal capillary refill. Laboratory Results - last 24 hr 11/29/18 11/29/18 11/29/18 11:26 11:26 11:26 WBC 6.0 RBC 3.45 L Hgb 9.5 L Hct 28.9 L D MCV 83.6 MCH 27.6 MCHC 33.0 RDW 14.9 Plt Count 330 D MPV 8.5 Absolute Neuts (auto) 4.2 Neutrophils % 71.1 D Lymphocytes % 18.4 D Monocytes % 8.6 Eosinophils % 0.8 Basophils % 1.1 Nucleated RBC % 0 Sodium 137 Potassium 4.1 Chloride 102 Carbon Dioxide 27 Anion Gap 7 L BUN 9.2 Creatinine 0.9 Est GFR (CKD-EPI)AfAm 76.68 Est GFR (CKD-EPI)NonAf 66.16 Random Glucose 258 H Uric Acid 5.1 Calcium 9.0 Total Bilirubin 0.5 AST 16 ALT 13 Alkaline Phosphatase 56 Total Protein 7.2 Albumin 2.6 L Urine Color Urine Appearance Urine pH Ur Specific [place] Urine Protein Urine Glucose (UA) Urine Ketones Urine Blood Urine Nitrite Urine Bilirubin Urine Urobilinogen Ur Leukocyte Esterase 11/29/18 15:10 WBC RBC Hgb Hct MCV MCH MCHC RDW Plt Count MPV Absolute Neuts (auto) Neutrophils % Lymphocytes % Monocytes % Eosinophils % Basophils % Nucleated RBC % Sodium Potassium Chloride Carbon Dioxide Anion Gap BUN Creatinine Est GFR (CKD-EPI)AfAm Est GFR (CKD-EPI)NonAf Random Glucose Uric Acid Calcium Total Bilirubin AST ALT Alkaline Phosphatase Total Protein Albumin Urine Color Yellow Urine Appearance Turbid Urine pH 5.0 Ur Specific [place] 1.010 Urine Protein Negative Urine Glucose (UA) Negative Urine Ketones Negative Urine Blood Negative Urine Nitrite Negative Urine Bilirubin Negative Urine Urobilinogen 0.2 Ur Leukocyte Esterase Negative ASSESSMENT/PLAN: 68 y/o female with PMH of kidney ca (s/p right nephrectomy in 2015) DM, gout, HTN, HLD, herniated disc s/p laminectomy in 2015 presents to the ED with complaints of left foot pain and also B/L neck pain #Intractable neck and foot pain -cervical CT and foot XRAY showed no acute patholoy -MRI c-spine and lower extremity ordered -Uric acid ordered -will c/w prednisone 40 daily -morphine and valium aready given -will c/w valium PRN -flexeril daily #DM holding home oral hypoglycemics BGMS ACHS ISS #HTN stating patient on Lisinopril 10mg BID #Gout uric acid level pending c/w allopurinol F/E/N not on fluids monitor electrolytes diabetic diet dvt ppx: lovenox Problem List - Problem (1) Foot pain Code(s): M79.673 - PAIN IN UNSPECIFIED FOOT Qualifiers: Laterality: left Qualified Code(s): M79.672 - Pain in left foot (2) Neck pain Code(s): M54.2 - CERVICALGIA (3) Hyperlipidemia Code(s): E78.5 - HYPERLIPIDEMIA, UNSPECIFIED Qualifiers: Hyperlipidemia type: pure hypercholesterolemia Qualified Code(s): E78.00 - Pure hypercholesterolemia, unspecified (4) Hypertension Code(s): I10 - ESSENTIAL (PRIMARY) HYPERTENSION Qualifiers: Hypertension type: essential hypertension Qualified Code(s): I10 - Essential (primary) hypertension Visit type - Emergency Visit Emergency Visit: Yes ED Registration Date: 11/29/18 Care time: The patient presented to the Emergency Department on the above date and was hospitalized for further evaluation of their emergent condition. - New Patient This patient is new to me today: Yes Date on this admission: 11/29/18 - Critical Care Critical Care patient: No ATTENDING PHYSICIAN STATEMENT I saw and evaluated the patient. I reviewed the resident's note and discussed the case with the resident. I agree with the resident's findings and plan as documented. SUBJECTIVE: OBJECTIVE: ASSESSMENT AND PLAN:
[2018-11-29] MEDS ORDERED: CYCLOBENZAPRINE HCL 10 MG TABLET (FP) ONE (18:25)
--- NOTE | 2018-11-29 19:23 | PN ---
Teaching Attending Note Name of Resident: Kathi Quintero ATTENDING PHYSICIAN STATEMENT I saw and evaluated the patient. I reviewed the resident's note and discussed the case with the resident. I agree with the resident's findings and plan as documented. SUBJECTIVE: Patient is a 68 year old woman with PMH of Kidney cancer (RT kidney removed), NIDDM, Penicillin allergy, Gastritis, GOUT, HTN, HLD and Hypothyroidism, T4-5 laminectomy and Perforated diverticulum and Recent E.coli bacteremia (completed course of Flagyl/Cipro yesterday) who presents to the ER with a few days of left foot pain and neck pain that began this morning. Patient states that the left foot pain feels like her typical gout flare up and has been progressively worsening. She woke up this morning and reports that she was unable to move her neck to either side due to pain. The patient denies any fevers, chills, nausea, vomiting, diarrhea, or abdominal pain. Denies any chest pain, palpitations, or shortness of breath. Denies any headache, weakness, dizziness, lightheadedness, or changes in strength or sensation. Has FH of brain tumor and DM. OBJECTIVE: Alert Vital Signs Period Temp Pulse Resp BP Sys/Wallace Pulse Ox Last 24 Hr 98.4 F-98.5 F 78-92 18-18 137-149/53-62 96-97 HEENT: No Jaundice, eye redness or discharge, PERRLA, EOMI. Normocephalic, atraumatic. External ears are normal and hearing is grossly intact. No nasal discharge. Neck: Paraspinal tenderness with limited ROM. No palpable adenopathy or thyromegaly. No JVD Chest: Good effort. Clear to auscultation and percussion. Heart: Regular. No S3, rub or murmur Abdomen: Not distended, soft, nontender and no HSM. No rebound or guarding. Normal bowel sounds. Ext: Peripheral pulses intact. No leg edema. Area of erythema on dorsum of left foot with associated. Skin: Warm and dry. No petechiae, rash or ecchymosis. Neuro: Alert. Oriented x3. CN 2-12 grossly intact. Sensation grossly intact in all four extremities and DTR are symmetric. Psych: Appropriate mood and affect. Good insight. Current Medications Generic Name Dose Route Start Last Admin Trade Name Freq PRN Reason Stop Dose Admin Allopurinol 100 mg 11/30/18 10:00 Zyloprim - PO DAILY [facility] Enoxaparin Sodium 40 mg 11/30/18 10:00 Lovenox - SQ DAILY [facility] Gabapentin 300 mg 11/29/18 22:00 Neurontin - PO BID [facility] Insulin Aspart 1 vial 11/29/18 18:51 Novolog Vial Sliding Scale - SQ ACHS [facility] Protocol Levothyroxine Sodium 50 mcg 11/30/18 10:00 Synthroid - PO DAILY [facility] Non-Formulary Medication 40 mg 11/30/18 10:00 Omeprazole [Omeprazole] PO DAILY [facility] Home Medications Medication Instructions Recorded Allopurinol [Zyloprim -] 100 mg PO DAILY 11/29/18 Ciprofloxacin [Cipro (Restricted 500 mg PO Q12H 11/29/18 To Id)] Gabapentin [Neurontin] 300 mg PO BID 11/29/18 Insulin (LOG) Aspart [NovoLOG -] 0 units SQ AC 11/29/18 Insulin Glargine,Hum.rec.anlog 50 units SQ HS 11/29/18 [Lantus Solostar PEN (NF)] Levothyroxine Sodium [Levoxyl] 50 mcg PO DAILY 11/29/18 Metformin HCl [Glucophage] 500 mg PO BID 11/29/18 Omeprazole 40 mg PO DAILY 11/29/18 metroNIDAZOLE [Metronidazole] 500 mg PO TID 11/29/18 Abnormal Lab Results 11/29/18 11/29/18 11:26 11:26 RBC 3.45 L Hgb 9.5 L Hct 28.9 L D Anion Gap 7 L Random Glucose 258 H Albumin 2.6 L ASSESSMENT AND PLAN: 1. Neck pain and Left foot pain - Etiology of neck pain is unclear, but may have cervical radiculopathy. C-spine CT scan and Xray of left foot didnot show any acute abnormality. Foot pain may be due to gouty arthritis, but in view of recent bacteremia, will rule out osteomyelitis. Will get C-spine and left foot MRI, uric acid level, EKG and continue prednisone, allopurinol, flexeril, lidocaine patch, valium PRN and colchicine. Consult Neurology and PT. During the day, will get her recent medical records from [facility]. 2. Hypoalbuminemia - Possibly due to combined effects of malnutrition and inflammation associated with comorbid chronic conditions. Will ensure adequate dietary protein intake and also consult cheerleading coach. 3. DM For now, we will hold the home diabetes drugs and implement sliding scale insulin regimen. Provide comprehensive diabetes care with patient teaching and counseling about the importance of adherence to prescribed diabetes regimen, euglycemia, eye care and foot care. 4. Anemia - Likely multifactorial. Will do basic anemia work up including serial stool guaiacs, reticulocyte count and iron studies. Would benefit from Procrit therapy once iron replete. 5. Obesity Counseled on the risks associated with obesity. Will provide patient all the necessary assistance, counseling and positive reinforcement to facilitate weight loss. Consult cheerleading coach. 6. Hypertension - Restart suitable outpatient antihypertensive drugs when clinically appropriate. Add ACEI to her regimen. Revise regimen to ensure round- the-clock excellent BP control and res counselor patient on the injurious effects of uncontrolled hypertension. Nonpharmacologic measures to control hypertension like weight loss, salt restriction and exercise discussed. Importance of adherence to treatment regimen and attainment of normotension emphasized. 7. DVT prophylaxis - Lovenox 40 mg SQ q 24 hours. 8. Advance directives - Full code
[2018-11-29] MEDS: INSULIN SLIDING SCALE (NOVOLOG) 1 VIAL SQ SCH (21:54)
[2018-11-29] MEDS: GABAPENTIN 300 MG CAPSULE (FP) PO SCH (21:55)
[2018-11-29] MEDS: LISINOPRIL 10 MG TABLET (FP) PO SCH (21:55)
[2018-11-29] MEDS ORDERED: INSULIN SLIDING SCALE (NOVOLOG) 1 VIAL SQ SCH (22:00)
[2018-11-29 22:13] LABS: PH,URINE 6.5 (5.0-8.0); URINE APPEARANCE Error; URINE BILIRUBIN NEGATIVE (NEGATIVE); URINE COLOR YELLOW; URINE GLUCOSE (UA) 3+ (NEGATIVE); URINE KETONE TRACE (NEGATIVE); URINE LEUK ESTERASE NEGATIVE (NEGATIVE); URINE NITRITE NEGATIVE (NEGATIVE); URINE PROTEIN NEGATIVE (NEGATIVE); URINE UROBILINOGEN 0.2 mg/dL (0.2-1.0)
[2018-11-30] MEDS ORDERED: INSULIN REGULAR HUMAN 100 UNITS/ML *VIAL SQ ONE (00:32)
[2018-11-30] MEDS ORDERED: INSULIN (NOVOLOG) ASPART 100 UNITS/ML 10ML VIAL SQ ONE (02:20)
[2018-11-30] MEDS: ACETAMINOPHEN 325 MG TABLET (FP) PO PRN ×2 (02:37→13:14)
[2018-11-30 03:03] VITALS: BMI 33.0
[2018-11-30] MEDS: LEVOTHYROXINE NA 50 MCG TABLET (FP) PO SCH (06:41)
[2018-11-30] MEDS: INSULIN SLIDING SCALE (NOVOLOG) 1 VIAL SQ SCH ×4 (06:41→21:16)
[2018-11-30 08:03] LABS: ALBUMIN 2.5 g/dl (3.4-5.0); BILIRUBIN,TOTAL 0.4 mg/dL (0.2-1); BLOOD UREA NITROGEN 12.3 mg/dL (7-18); CALCIUM 9.1 mg/dL (8.5-10.1); CREATININE 0.8 mg/dL (0.55-1.3); MAGNESIUM 1.9 mg/dL (1.8-2.4); POTASSIUM 4.2 mmol/L (3.5-5.1)
[2018-11-30 08:07] LABS: BASO % 0.3 % (0-2.0); EOS % 0.1 % (0-4.5); HEMATOCRIT 27.8 % (32.4-45.2); HEMOGLOBIN 9.2 GM/dL (10.7-15.3); LYMPH % 19.8 % (8-40); MCH 27.3 pg (25.7-33.7); MEAN CELL VOLUME 82.8 fl (80-96); MEAN PLT VOLUME 8.9 fl (7.5-11.1); NEUT % 71.8 % (42.8-82.8); PLATELET COUNT 391 K/MM3 (134-434); RBC 3.36 M/mm3 (3.60-5.2); RDW 14.8 % (11.6-15.6); WHITE BLOOD COUNT 6.5 K/mm3 (4.0-10.0)
[2018-11-30] MEDS ORDERED: CYCLOBENZAPRINE HCL 5 MG TABLET PO ONE (09:17)
[2018-11-30] MEDS ORDERED: CYCLOBENZAPRINE HCL 5 MG TABLET PO SCH (10:00)
[2018-11-30] MEDS: GABAPENTIN 300 MG CAPSULE (FP) PO SCH ×2 (11:08→21:17)
[2018-11-30] MEDS: predniSONE 20 MG TABLET (UD) PO SCH (11:12)
[2018-11-30] MEDS: LISINOPRIL 10 MG TABLET (FP) PO SCH ×2 (11:12→21:18)
[2018-11-30] MEDS: PANTOPRAZOLE 40 MG TABLET (FP) PO SCH (11:12)
[2018-11-30] MEDS: ALLOPURINOL 100 MG TABLET (FP) PO SCH (11:13)
[2018-11-30] MEDS: LIDOCAINE 5% TOPICAL PATCH TP SCH (11:14)
[2018-11-30] MEDS: ENOXAPARIN NA (PORCINE) 40 MG/0.4 ML DISP.SYRIN SQ SCH (11:20)
--- NOTE | 2018-11-30 11:33 | EKG ---
Test Reason : Blood Pressure : / mmHG Vent. Rate : 088 BPM Atrial Rate : 088 BPM P-R Int : 122 ms QRS Dur : 066 ms QT Int : 280 ms P-R-T Axes : 050 -14 009 degrees QTc Int : 338 ms NORMAL SINUS RHYTHM INFERIOR INFARCT , AGE UNDETERMINED POSSIBLE ANTERIOR INFARCT (CITED ON OR BEFORE 12-NOV-2009) ABNORMAL ECG WHEN COMPARED WITH ECG OF 31-OCT-2018 17:20, INFERIOR INFARCT IS NOW PRESENT Confirmed by SANJAY COLINDRES MD ([id number]) on 11/30/2018 11:32:53 AM Referred By: Confirmed By:SANJAY COLINDRES MD
[2018-11-30] MEDS: CYCLOBENZAPRINE HCL 5 MG TABLET PO SCH ×2 (13:15→22:35)
--- NOTE | 2018-11-30 13:30 | PN ---
Physical Exam: SUBJECTIVE: Patient seen and examined, reports neck pain/spasms with difficulty moving the neck. pain radiating down both shoulders. left foot pain resolved with no swelling currently. reports symptoms for 3 days. OBJECTIVE: Vital Signs Period Temp Pulse Resp BP Sys/Wallace Pulse Ox Last 24 Hr 98 F-98.5 F 78-98 18-18 120-152/53-70 96-97 Intake & Output 11/27/18 11/28/18 11/29/18 11/30/18 23:59 23:59 23:59 23:59 Intake Total 0 0 Balance 0 0 Weight 186 lb 5 oz GENERAL:lying in bed in no acute distress Neck: spasm along upper trapezius/sternocleidomastoid muscles in the neck region , with limitation ROM due to pain, no spinal tenderness noted. Laboratory Results - last 24 hr 11/29/18 11/29/18 11/29/18 15:10 18:32 20:31 WBC RBC Hgb Hct MCV MCH MCHC RDW Plt Count MPV Absolute Neuts (auto) Neutrophils % Lymphocytes % Monocytes % Eosinophils % Basophils % Nucleated RBC % Retic Count Sodium Potassium Chloride Carbon Dioxide Anion Gap BUN Creatinine Est GFR (CKD-EPI)AfAm Est GFR (CKD-EPI)NonAf POC Glucometer 365 Random Glucose Uric Acid 4.9 Calcium Magnesium Total Bilirubin AST ALT Alkaline Phosphatase Total Protein Albumin Urine Color Yellow Urine Appearance Turbid Urine pH 5.0 Ur Specific [place] 1.010 Urine Protein Negative Urine Glucose (UA) Negative Urine Ketones Negative Urine Blood Negative Urine Nitrite Negative Urine Bilirubin Negative Urine Urobilinogen 0.2 Ur Leukocyte Esterase Negative 11/29/18 11/29/18 11/29/18 21:49 21:50 23:12 WBC RBC Hgb Hct MCV MCH MCHC RDW Plt Count MPV Absolute Neuts (auto) Neutrophils % Lymphocytes % Monocytes % Eosinophils % Basophils % Nucleated RBC % Retic Count Sodium Potassium Chloride Carbon Dioxide Anion Gap BUN Creatinine Est GFR (CKD-EPI)AfAm Est GFR (CKD-EPI)NonAf POC Glucometer 401 358 Random Glucose Uric Acid Calcium Magnesium Total Bilirubin AST ALT Alkaline Phosphatase Total Protein Albumin Urine Color Yellow Urine Appearance Error Urine pH 6.5 D Ur Specific [place] 1.014 Urine Protein Negative Urine Glucose (UA) 3+ H Urine Ketones Trace H Urine Blood Negative Urine Nitrite Negative Urine Bilirubin Negative Urine Urobilinogen 0.2 Ur Leukocyte Esterase Negative 11/30/18 11/30/18 11/30/18 02:35 06:10 06:10 WBC 6.5 RBC 3.36 L Hgb 9.2 L Hct 27.8 L MCV 82.8 MCH 27.3 MCHC 33.0 RDW 14.8 Plt Count 391 MPV 8.9 Absolute Neuts (auto) 4.7 Neutrophils % 71.8 Lymphocytes % 19.8 Monocytes % 8.0 Eosinophils % 0.1 D Basophils % 0.3 Nucleated RBC % 0 Retic Count Sodium 137 Potassium 4.2 Chloride 103 Carbon Dioxide 25 Anion Gap 8 BUN 12.3 Creatinine 0.8 Est GFR (CKD-EPI)AfAm 88.42 Est GFR (CKD-EPI)NonAf 76.29 POC Glucometer 327 Random Glucose 239 H Uric Acid Calcium 9.1 Magnesium 1.9 Total Bilirubin 0.4 AST 15 ALT 13 Alkaline Phosphatase 58 Total Protein 7.0 Albumin 2.5 L Urine Color Urine Appearance Urine pH Ur Specific [place] Urine Protein Urine Glucose (UA) Urine Ketones Urine Blood Urine Nitrite Urine Bilirubin Urine Urobilinogen Ur Leukocyte Esterase 11/30/18 11/30/18 11/30/18 06:10 06:35 11:05 WBC RBC Hgb Hct MCV MCH MCHC RDW Plt Count MPV Absolute Neuts (auto) Neutrophils % Lymphocytes % Monocytes % Eosinophils % Basophils % Nucleated RBC % Retic Count 2.51 H Sodium Potassium Chloride Carbon Dioxide Anion Gap BUN Creatinine Est GFR (CKD-EPI)AfAm Est GFR (CKD-EPI)NonAf POC Glucometer 231 248 Random Glucose Uric Acid Calcium Magnesium Total Bilirubin AST ALT Alkaline Phosphatase Total Protein Albumin Urine Color Urine Appearance Urine pH Ur Specific [place] Urine Protein Urine Glucose (UA) Urine Ketones Urine Blood Urine Nitrite Urine Bilirubin Urine Urobilinogen Ur Leukocyte Esterase Active Medications Generic Name Dose Route Start Last Admin Trade Name Freq PRN Reason Stop Dose Admin Acetaminophen 650 mg 11/30/18 02:18 11/30/18 13:14 Tylenol - PO 650 mg Q6H PRN Administration PAIN LEVEL 4 - 6 Allopurinol 100 mg 11/30/18 10:00 11/30/18 11:13 Zyloprim - PO 100 mg DAILY AMANDA Administration Cyclobenzaprine HCl 5 mg 11/30/18 14:00 11/30/18 13:15 Cyclobenzaprine Hcl PO 5 mg TID AMANDA Administration Enoxaparin Sodium 40 mg 11/30/18 10:00 11/30/18 11:20 Lovenox - SQ 40 mg DAILY AMANDA Administration Gabapentin 300 mg 11/29/18 22:00 11/30/18 11:08 Neurontin - PO 300 mg BID AMANDA Administration Insulin Aspart 1 vial 11/29/18 18:51 11/30/18 11:22 Novolog Vial Sliding Scale - SQ 4 unit ACHS AMANDA Administration Protocol Levothyroxine Sodium 50 mcg 11/30/18 07:00 11/30/18 06:41 Synthroid - PO 50 mcg DAILY@0700 AMANDA Administration Lidocaine 1 patch 11/30/18 10:00 11/30/18 11:14 Lidoderm Patch - TP 1 patch DAILY AMANDA Administration Lisinopril 10 mg 11/29/18 22:00 11/30/18 11:12 Prinivil PO 10 mg BID AMANDA Administration Miscellaneous 1 each 11/30/18 22:00 Lidoderm Patch Removal MC DAILY@2200 AMANDA Pantoprazole Sodium 40 mg 11/30/18 10:00 11/30/18 11:12 Protonix - PO 40 mg DAILY AMANDA Administration Prednisone 40 mg 11/30/18 10:00 11/30/18 11:12 Deltasone - PO 40 mg DAILY AMANDA Administration Home Medications Medication Instructions Recorded Allopurinol [Zyloprim -] 100 mg PO DAILY 11/29/18 Ciprofloxacin [Cipro (Restricted 500 mg PO Q12H 11/29/18 To Id)] Gabapentin [Neurontin] 300 mg PO BID 11/29/18 Insulin (LOG) Aspart [NovoLOG -] 0 units SQ AC 11/29/18 Insulin Glargine,Hum.rec.anlog 50 units SQ HS 11/29/18 [Lantus Solostar PEN (NF)] Levothyroxine Sodium [Levoxyl] 50 mcg PO DAILY 11/29/18 Metformin HCl [Glucophage] 500 mg PO BID 11/29/18 Omeprazole 40 mg PO DAILY 11/29/18 metroNIDAZOLE [Metronidazole] 500 mg PO TID 11/29/18 ASSESSMENT/PLAN: 68 yof with PMhx of HTN, HLD, GERD, IDDM, diabetic neuropathy, lumbar disc disease with sciatica s/p L4-L5 laminectomy (2014), 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 Coli bacteremia (completed ciprofloxacin/flagyl 11/28) admitted with neck pain and left foot pain -Neck pain, suspect Acute spasm/torticollis +/- underlying cervical radiculopathy -Left foot pain/swelling, suspect gout flare (reports similar prior symptoms), resolved now -IDDM with hyperglycemia -reported recent perforated diverticulitis/E. 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 MRI C-spine. Dr. Tipton input accordingly. PT eval. Already on steroids. Left foot symptoms resolved, likely from prednisone. Short steroid taper. Continue allopurinol Resume levemir 20 units hs. ISS, diabetic diet. titrate up based on blood glucose readings. Hold metformin. Continue lisinopril Continue levothyroxine DVTPPx lovenox Will need PT eval and case management consult for dispo planning pending above work up and clinical course. Discussed with patient and nursing, all questions answered. Visit type - Emergency Visit Emergency Visit: Yes ED Registration Date: 11/29/18 Care time: The patient presented to the Emergency Department on the above date and was hospitalized for further evaluation of their emergent condition. - New Patient This patient is new to me today: Yes Date on this admission: 11/30/18 - Critical Care Critical Care patient: No - Discharge Referral Referred to [facility] Med P.C.: No
[2018-11-30] MEDS ORDERED: INSULIN (LEVEMIR) 100 UNITS/ML UNITS SQ ONE (14:00)
[2018-11-30] MEDS ORDERED: NYSTATIN POWDER 100,000 UNITS/GM - 15 GM TOPICAL POWDER TP PRN (14:44)
[2018-11-30 16:13] LABS: IRON SERUM 25 ug/dL (50-175); TOTAL IRON BINDING CAPACITY 232 ug/dL (250-450)
[2018-11-30] MEDS ORDERED: NAPH,MB-DB/K PH,MBDB POWDER PACKET PO ONE (16:45)
[2018-11-30] MEDS ORDERED: POLYETHYLENE GLYCOL 3350 119 GM BTL PO PRN (16:45)
[2018-11-30] MEDS: FERROUS GLUCONATE 324 MG TAB (FP) PO SCH (17:07)
[2018-11-30] MEDS ORDERED: PT OWN MED DRAWER 7, Y5N ONE (20:45)
[2018-11-30] MEDS: DOCUSATE SODIUM 100 MG CAPSULE (FP) PO SCH (21:18)
[2018-11-30] MEDS: LIDOCAINE PATCH REMOVAL MC SCH (21:18)
[2018-11-30] MEDS ORDERED: INSULIN (LEVEMIR) 100 UNITS/ML UNITS SQ SCH (22:00)
[2018-12-01] MEDS: ACETAMINOPHEN 325 MG TABLET (FP) PO PRN
[2018-12-01] MEDS: LEVOTHYROXINE NA 50 MCG TABLET (FP) PO SCH (06:49)
[2018-12-01] MEDS: DOCUSATE SODIUM 100 MG CAPSULE (FP) PO SCH ×3 (06:49→21:08)
[2018-12-01] MEDS: CYCLOBENZAPRINE HCL 5 MG TABLET PO SCH ×3 (06:50→21:10)
[2018-12-01] MEDS: INSULIN SLIDING SCALE (NOVOLOG) 1 VIAL SQ SCH ×4 (06:54→21:08)
[2018-12-01 07:21] LABS: BASO % 0.6 % (0-2.0); EOS % 0.2 % (0-4.5); HEMATOCRIT 29.8 % (32.4-45.2); HEMOGLOBIN 9.7 GM/dL (10.7-15.3); LYMPH % 31.1 % (8-40); MCHC 32.6 g/dl (32.0-36.0); MEAN PLT VOLUME 8.5 fl (7.5-11.1); NEUT % 62.1 % (42.8-82.8); PLATELET COUNT 444 K/MM3 (134-434); RBC 3.59 M/mm3 (3.60-5.2); RDW 14.9 % (11.6-15.6)
[2018-12-01 08:00] LABS: ALBUMIN 2.7 g/dl (3.4-5.0); BILIRUBIN,TOTAL 0.3 mg/dL (0.2-1); CALCIUM 9.7 mg/dL (8.5-10.1); CREATININE 0.9 mg/dL (0.55-1.3); MAGNESIUM 1.8 mg/dL (1.8-2.4); PHOSPHOROUS 3.6 mg/dL (2.5-4.9); TOT PROT 7.4 g/dl (6.4-8.2)
[2018-12-01] MEDS ORDERED: PT OWN MED DRAWER 7, Y5N ONE (09:18)
[2018-12-01] MEDS: predniSONE 20 MG TABLET (UD) PO SCH (09:23)
[2018-12-01] MEDS: PANTOPRAZOLE 40 MG TABLET (FP) PO SCH (09:23)
[2018-12-01] MEDS: ENOXAPARIN NA (PORCINE) 40 MG/0.4 ML DISP.SYRIN SQ SCH (09:23)
[2018-12-01] MEDS: LISINOPRIL 10 MG TABLET (FP) PO SCH ×2 (09:24→21:08)
[2018-12-01] MEDS: GABAPENTIN 300 MG CAPSULE (FP) PO SCH ×2 (09:24→21:08)
[2018-12-01] MEDS: LIDOCAINE 5% TOPICAL PATCH TP SCH (09:24)
[2018-12-01] MEDS: FERROUS GLUCONATE 324 MG TAB (FP) PO SCH (09:24)
[2018-12-01] MEDS: ALLOPURINOL 100 MG TABLET (FP) PO SCH (09:24)
[2018-12-01] MEDS ORDERED: CYCLOBENZAPRINE HCL 5 MG TABLET PO ONE (12:05)
[2018-12-01] MEDS ORDERED: INSULIN (LEVEMIR) 100 UNITS/ML UNITS SQ ONE ×2 (12:17→17:44)
--- NOTE | 2018-12-01 12:28 | PN ---
Physical Exam: SUBJECTIVE: Patient seen and examined, neck pain improved. No other complaints. OBJECTIVE: Vital Signs Period Temp Pulse Resp BP Sys/Wallace Pulse Ox Last 24 Hr 98.1 F-98.5 F 71-90 18-20 130-151/53-72 Intake & Output 11/28/18 11/29/18 11/30/18 12/01/18 23:59 23:59 23:59 23:59 Intake Total 0 650 240 Output Total 350 Balance 0 300 240 Weight 186 lb 5 oz General: sitting in bed in no acute distress Neck: improved spasm, improved ROM, no spinal tenderness CVS:S1S2 regular Chest: CTAB, no rales or wheezing Abdomen: Soft, obese, NT Extremities: no foot swelling/erythema or tophi noted Musculoskeletal: neck as above, bilateral arm raising limited Laboratory Results - last 24 hr 11/30/18 11/30/18 11/30/18 14:45 14:45 17:04 WBC RBC Hgb Hct MCV MCH MCHC RDW Plt Count MPV Absolute Neuts (auto) Neutrophils % Lymphocytes % Monocytes % Eosinophils % Basophils % Nucleated RBC % Sodium Potassium Chloride Carbon Dioxide Anion Gap BUN Creatinine Est GFR (CKD-EPI)AfAm Est GFR (CKD-EPI)NonAf POC Glucometer 399 Random Glucose Calcium Phosphorus 2.4 L Magnesium Iron 25 L TIBC 232 L Iron Saturation 10 L Unsaturated IBC 207 Total Bilirubin AST ALT Alkaline Phosphatase Total Protein Albumin 11/30/18 12/01/18 12/01/18 21:13 06:30 06:30 WBC 6.0 RBC 3.59 L Hgb 9.7 L Hct 29.8 L MCV 83.0 MCH 27.0 MCHC 32.6 RDW 14.9 Plt Count 444 H MPV 8.5 Absolute Neuts (auto) 3.7 Neutrophils % 62.1 Lymphocytes % 31.1 D Monocytes % 6.0 Eosinophils % 0.2 D Basophils % 0.6 Nucleated RBC % 0 Sodium 136 Potassium 4.0 Chloride 104 Carbon Dioxide 25 Anion Gap 7 L BUN 18.0 Creatinine 0.9 Est GFR (CKD-EPI)AfAm 76.68 Est GFR (CKD-EPI)NonAf 66.16 POC Glucometer 442 Random Glucose 275 H Calcium 9.7 Phosphorus 3.6 Magnesium 1.8 Iron TIBC Iron Saturation Unsaturated IBC Total Bilirubin 0.3 AST 18 ALT 18 Alkaline Phosphatase 65 Total Protein 7.4 Albumin 2.7 L 12/01/18 12/01/18 06:51 11:15 WBC RBC Hgb Hct MCV MCH MCHC RDW Plt Count MPV Absolute Neuts (auto) Neutrophils % Lymphocytes % Monocytes % Eosinophils % Basophils % Nucleated RBC % Sodium Potassium Chloride Carbon Dioxide Anion Gap BUN Creatinine Est GFR (CKD-EPI)AfAm Est GFR (CKD-EPI)NonAf POC Glucometer 270 188 Random Glucose Calcium Phosphorus Magnesium Iron TIBC Iron Saturation Unsaturated IBC Total Bilirubin AST ALT Alkaline Phosphatase Total Protein Albumin Active Medications Generic Name Dose Route Start Last Admin Trade Name Freq PRN Reason Stop Dose Admin Acetaminophen 650 mg 11/30/18 02:18 12/01/18 00:00 Tylenol - PO 650 mg Q6H PRN Administration PAIN LEVEL 4 - 6 Allopurinol 100 mg 11/30/18 10:00 12/01/18 09:24 Zyloprim - PO 100 mg DAILY AMANDA Administration Cyclobenzaprine HCl 5 mg 11/30/18 14:00 12/01/18 06:50 Cyclobenzaprine Hcl PO 5 mg TID AMANDA Administration Docusate Sodium 100 mg 11/30/18 22:00 12/01/18 06:49 Colace - PO 100 mg TID AMANDA Administration Enoxaparin Sodium 40 mg 11/30/18 10:00 12/01/18 09:23 Lovenox - SQ 40 mg DAILY AMANDA Administration Ferrous Gluconate 324 mg 11/30/18 16:45 12/01/18 09:24 Fergon - PO 324 mg DAILY AMANDA Administration Gabapentin 300 mg 11/29/18 22:00 12/01/18 09:24 Neurontin - PO 300 mg BID AMANDA Administration Insulin Aspart 1 vial 11/29/18 18:51 12/01/18 11:17 Novolog Vial Sliding Scale - SQ 2 unit ACHS AMANDA Administration Protocol Insulin Detemir 20 units 11/30/18 22:00 11/30/18 21:17 Levemir Vial SQ 20 units HS AMANDA Administration Levothyroxine Sodium 50 mcg 11/30/18 07:00 12/01/18 06:49 Synthroid - PO 50 mcg DAILY@0700 AMANDA Administration Lidocaine 1 patch 11/30/18 10:00 12/01/18 09:24 Lidoderm Patch - TP 1 patch DAILY AMANDA Administration Lisinopril 10 mg 11/29/18 22:00 12/01/18 09:24 Prinivil PO 10 mg BID AMANDA Administration Miscellaneous 1 each 11/30/18 22:00 11/30/18 21:18 Lidoderm Patch Removal MC Not Given DAILY@2200 AMANDA Nystatin 1 applic 11/30/18 14:44 12/01/18 09:24 Nystop Powder - TP 1 applic DAILY PRN Administration FOR ITCHING Pantoprazole Sodium 40 mg 11/30/18 10:00 12/01/18 09:23 Protonix - PO 40 mg DAILY AMANDA Administration Polyethylene Glycol 17 gm 11/30/18 16:45 11/30/18 17:08 Miralax (For Daily Use) - PO 17 gm Q24H PRN Administration CONSTIPATION Prednisone 40 mg 11/30/18 10:00 12/01/18 09:23 Deltasone - PO 40 mg DAILY AMANDA Administration MRI C-spine results reviewed ASSESSMENT/PLAN: 68 yof with PMhx of HTN, HLD, GERD, IDDM, diabetic neuropathy, lumbar disc disease with sciatica s/p L4-L5 laminectomy (2014), 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 Coli bacteremia (completed ciprofloxacin/flagyl 11/28) admitted with neck pain and left foot pain -Neck pain, suspect Acute spasm/torticollis +/- underlying cervical radiculopathy -Left foot pain/swelling, suspect gout flare (reports similar prior symptoms), resolved now -IDDM with hyperglycemia -reported recent perforated diverticulitis/E. 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 MRI C-spine noted. Symptoms improved, soft collar. Neurosurgery consult Dr. Tipotn.PT eval. Already on steroids. Left foot symptoms resolved, likely from prednisone. Short steroid taper. Continue allopurinol Increase levemir 30 units hs. ISS, diabetic diet. titrate up based on blood glucose readings. Hold metformin. Continue lisinopril/levothyroxine Continue levothyroxine DVTPPx lovenox Dispo SNF vs home with services pending clinical improvement and surgery recs Discussed with patient and nursing, all questions answered. Visit type - Emergency Visit Emergency Visit: Yes ED Registration Date: 11/29/18 Care time: The patient presented to the Emergency Department on the above date and was hospitalized for further evaluation of their emergent condition. - New Patient This patient is new to me today: No - Critical Care Critical Care patient: No - Discharge Referral Referred to [facility] Med P.C.: No
[2018-12-01] MEDS ORDERED: INSULIN (NOVOLOG) ASPART 100 UNITS/ML 10ML VIAL ONE (21:05)
[2018-12-01] MEDS: LIDOCAINE PATCH REMOVAL MC SCH (21:11)
[2018-12-01] MEDS ORDERED: INSULIN (LEVEMIR) 100 UNITS/ML UNITS SQ SCH (22:00)
[2018-12-02] MEDS: LEVOTHYROXINE NA 50 MCG TABLET (FP) PO SCH (06:53)
[2018-12-02] MEDS: DOCUSATE SODIUM 100 MG CAPSULE (FP) PO SCH ×3 (06:53→21:30)
[2018-12-02] MEDS: INSULIN SLIDING SCALE (NOVOLOG) 1 VIAL SQ SCH ×4 (06:53→21:32)
[2018-12-02] MEDS: ALLOPURINOL 100 MG TABLET (FP) PO SCH (09:17)
[2018-12-02] MEDS: CYCLOBENZAPRINE HCL 5 MG TABLET PO SCH ×2 (09:17→21:30)
[2018-12-02] MEDS: PANTOPRAZOLE 40 MG TABLET (FP) PO SCH (09:19)
[2018-12-02] MEDS: GABAPENTIN 300 MG CAPSULE (FP) PO SCH ×2 (09:19→21:33)
[2018-12-02] MEDS: LISINOPRIL 10 MG TABLET (FP) PO SCH ×2 (09:19→21:33)
[2018-12-02] MEDS: predniSONE 20 MG TABLET (UD) PO SCH (09:19)
[2018-12-02] MEDS: LIDOCAINE 5% TOPICAL PATCH TP SCH (09:19)
[2018-12-02] MEDS: ENOXAPARIN NA (PORCINE) 40 MG/0.4 ML DISP.SYRIN SQ SCH (09:19)
[2018-12-02] MEDS: FERROUS GLUCONATE 324 MG TAB (FP) PO SCH (09:19)
--- NOTE | 2018-12-02 10:19 | PN ---
Progress Note (short form) - Note Progress Note: NEUROSURGERY CONSULT DICTATED Chart reviewed Pt examined CT/MRI C spine reviewed h/o kidney ca (s/p right nephrectomy) DM, gout, HTN, HLD, herniated disc s/p lumbar laminectomy in 2014 at [place] c/o left foot pain and B neck pain. Hospitalized at [facility] last week after endoscopy and CT showed perforated diverticulum, complicated by e-coli bacteremia and she was treated with a course of cipro/flagyl . Left foot started a week ago and similar to usual gout flare up. c/o tension in neck muscles radiating up from her shoulders into her neck- she denies UE weakness/numbness/tingling. No Lhermitte's. No B/ B dysfunction. PE: AF, VSS general- unremarkable; Back - 2-3 in incision over L4-5; mild cervical paraspinal muscle spasm CN- intact; Motor- 5/5 b UE/LE; Sensation- intact LT/vibration; DTR- 2+ throughout CT- C6 hemangioma; no fx; C6-7 DDD MRI- multilevel DDD most notable C5-6 and C6-7; small central protrusion C5-6; central and L C6-7 paracentral HNP into foramen; C6 and T2 hemangioma (C6-7 HNP new c/w prior MRI) Acute central and L C6-7 HNP Medical tx only (PT/meds/soft collar) and no neck manipulation Surgery for cervical spine not indicated as there is no associated neuro deficit GI f/u given recent GI event
[2018-12-02] MEDS ORDERED: PT OWN MED DRAWER 7, Y5N ONE (10:59)
--- NOTE | 2018-12-02 11:31 | CONS ---
DATE OF CONSULTATION: DATE OF DICTATION: 12/02/2018 REQUESTING PHYSICIAN: Shelia Navarrete MD PEANUT FARMER: Cristóbal Hernández MD, Neurosurgery CHIEF COMPLAINT: Neck pain. HISTORY OF PRESENT ILLNESS: Patient is a 68-year-old right-hand dominant female with a history of gout, hypertension, diabetes, renal cancer status post right nephrectomy, lumbar laminectomy for left lumbar radiculopathy 4 years ago at [place] who complains of increasing left foot pain as well as generalized neck pain. She denies any recent trauma. She reports a history of having experienced probable perforated colonic diverticulum after endoscopy and was on IV antibiotic. That condition apparently was under control. She has pain in the left foot that started about 3 days prior to admission. It is similar to her regular gout flare up. She also complains of increasing neck tension, which she has had intermittently in the past. Pain radiates to the shoulders. She denies any upper extremity weakness, numbness, or tingling. She denies Lhermitte's sign and has no bowel or bladder dysfunction. PAST MEDICAL HISTORY: Significant for hypertension, gout, diabetes, right renal cancer status post nephrectomy, lumbar laminectomy and diskectomy for lumbar radiculopathy. CURRENT MEDICATIONS: Include Lidoderm patch, Deltasone, Tylenol, Prinivil, Lovenox, Neurontin, allopurinol, Colace, cyclobenzaprine, NovoLog, Levemir, ferrous gluconate, nystatin powder, Protonix. ALLERGIES: CODEINE and PENICILLIN. SOCIAL HISTORY: She does not smoke or drink. She is retired. REVIEW OF SYSTEMS: Otherwise negative for major constitutional, head, neck, cardiovascular, pulmonary, gastrointestinal, genitourinary, endocrinologic, neurologic, or psychological problems except for the above. PHYSICAL EXAMINATION: General: She is awake and alert. Vital Signs: Temperature is 98, maximum temperature is 98.8, blood pressure is 150/65. HEENT: Shows her to be normocephalic, atraumatic, anicteric. Neck: Supple but she does have paraspinal muscle spasm bilaterally. Coronary: Demonstrates regular rhythm without a murmur. Lungs: Clear to auscultation bilaterally. Abdomen: Benign. Not acute. Extremities: Show no sign of DVT. Musculoskeletal: Examination of her back shows a 2- to 3-inch healed midline scar overlying L4-5. Neurologic: She has a mildly positive straight leg raise on the left side about 45 degrees. Cranial nerve examination is intact 2-12. Motor examination shows 5/5 strength in bilateral upper and lower extremities. Sensory examination intact to light touch and vibratory sensation. Deep tendon reflexes are 2+ throughout. There is no pathological or long-tract sign. Gait is not tested for safety reasons. LABORATORY EXAMINATION: Shows white blood cell count of 6, hemoglobin 9.7, platelet count 444,000, BUN 18, creatinine 0.9. Sodium is 136, potassium 4.0. LFTs are normal. Albumin is decreased at 2.7. Urinalysis shows 3+ glucose and trace ketones. CT scan of the cervical spine demonstrated mild spondylosis throughout. There is no acute fracture or dislocation. There are disk bulges at C5-6 and C6-7. There is C6 vertebral body hemangioma. MRI of the cervical spine was compared to a prior cervical spine MRI examination 2014. There is evidence of hemangioma at C6 and T2. There is multilevel degenerative disk disease. The most notable levels are C5- 6 and C6-7. There is a small central disk protrusion at C5-6 with no spinal cord impingement. There is a central and left-sided C6-7 paracentral disk protrusion extending to neural foramen, which appears to be relatively acute in nature. There is no spinal cord compression. There is slight impingement in left C7 nerve root. IMPRESSION: 1. Acute left central and left C6-7 paracentral disk protrusion with neck pain and cervical paraspinal muscle spasm but no neurologic deficit. 2. Hypertension. 3. Diabetes. 4. Right nephrectomy for right renal cancer. 5. History of lumbar laminectomy for left lumbar radiculopathy done at [place] 4 years earlier. 6. Hypertension. RECOMMENDATION: Patient presents with several-day history of increasing left foot pain and neck pain with cervical paraspinal muscle spasm. She has no neurologic deficit at this time. She did recently undergo an endoscopy and CT showed the perforated diverticulum, which was treated with IV antibiotic. Her current pain symptoms in her left foot are like her usual pain from gout, even though this could be chronic lumbar radiculopathy. She has neck pain but no true cervical radiculopathy. MRI demonstrated central and left-sided C6-7 paracentral disk protrusion, which appears to be somewhat acute. She has no neurological deficit. Her signs and symptoms should be treated medically. She is on gabapentin, which is appropriate for her radiculopathy. A course of physical therapy and soft cervical collar are also appropriate to try to treat her symptomatically. She should not undergo any neck manipulation. Neurosurgical intervention is not indicated nor recommended at this time because of her benign neurological examination. Should she develop worsening left upper extremity radiculopathy especially in the C7 distribution, surgical intervention could be considered. She should continue to follow up with her GI physician because of a recent perforated diverticulum. CRISTÓBAL HERNÁNDEZ M.D. [id number] MTDD
--- NOTE | 2018-12-02 13:23 | PN ---
Physical Exam: SUBJECTIVE: Patient seen and examined at bedside. Neck pain improving. OBJECTIVE: Vital Signs Period Temp Pulse Resp BP Sys/Wallace Pulse Ox Last 24 Hr 98 F-98.5 F 69-87 20-20 119-130/50-65 98-98 GEN: NAD, comfortable in bed HEENT: NCAT, EOMI Neck: soft neck collar open under pt's neck on arriving in room. Pt moves neck freely with some pain. Tender to palpation paraspinally bilaterally Cardio: rrr, normal s1s2, systolic murmur 3/6, no mrg Pulm: mild late expiratory wheeze Abd: soft, nontender, nondistended Ext: no tingling, no edema Laboratory Results - last 24 hr 12/01/18 12/01/18 12/02/18 17:32 20:34 06:35 POC Glucometer 470 360 162 12/02/18 12:09 POC Glucometer 317 Active Medications Generic Name Dose Route Start Last Admin Trade Name Freq PRN Reason Stop Dose Admin Acetaminophen 650 mg 11/30/18 02:18 12/01/18 00:00 Tylenol - PO 650 mg Q6H PRN Administration PAIN LEVEL 4 - 6 Allopurinol 100 mg 11/30/18 10:00 12/02/18 09:17 Zyloprim - PO 100 mg DAILY AMANDA Administration Cyclobenzaprine HCl 2.5 mg 12/01/18 22:00 12/02/18 09:17 Cyclobenzaprine Hcl PO 2.5 mg BID AMANDA Administration Docusate Sodium 100 mg 11/30/18 22:00 12/02/18 06:53 Colace - PO 100 mg TID AMANDA Administration Enoxaparin Sodium 40 mg 11/30/18 10:00 12/02/18 09:19 Lovenox - SQ 40 mg DAILY AMANDA Administration Ferrous Gluconate 324 mg 11/30/18 16:45 12/02/18 09:19 Fergon - PO 324 mg DAILY AMANDA Administration Gabapentin 300 mg 11/29/18 22:00 12/02/18 09:19 Neurontin - PO 300 mg BID AMANDA Administration Insulin Aspart 1 vial 11/29/18 18:51 12/02/18 12:35 Novolog Vial Sliding Scale - SQ 8 unit ACHS AMANDA Administration Protocol Insulin Detemir 30 units 12/02/18 22:00 Levemir Vial SQ HS AMANDA Levothyroxine Sodium 50 mcg 11/30/18 07:00 12/02/18 06:53 Synthroid - PO 50 mcg DAILY@0700 AMANDA Administration Lidocaine 1 patch 11/30/18 10:00 12/02/18 09:19 Lidoderm Patch - TP 1 patch DAILY AMANDA Administration Lisinopril 10 mg 11/29/18 22:00 12/02/18 09:19 Prinivil PO 10 mg BID AMANDA Administration Miscellaneous 1 each 11/30/18 22:00 12/01/18 21:11 Lidoderm Patch Removal MC Not Given DAILY@2200 AMANDA Nystatin 1 applic 11/30/18 14:44 12/01/18 09:24 Nystop Powder - TP 1 applic DAILY PRN Administration FOR ITCHING Pantoprazole Sodium 40 mg 11/30/18 10:00 12/02/18 09:19 Protonix - PO 40 mg DAILY AMANDA Administration Polyethylene Glycol 17 gm 11/30/18 16:45 11/30/18 17:08 Miralax (For Daily Use) - PO 17 gm Q24H PRN Administration CONSTIPATION Prednisone 40 mg 11/30/18 10:00 12/02/18 09:19 Deltasone - PO 40 mg DAILY AMANDA Administration ASSESSMENT/PLAN: 68 yof with PMhx of HTN, HLD, GERD, IDDM, diabetic neuropathy, lumbar disc disease with sciatica s/p L4-L5 laminectomy (2014), 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 Coli bacteremia (completed ciprofloxacin/flagyl 11/28) admitted with neck pain and left foot pain #Neck pain, suspect Acute spasm/torticollis +/- underlying cervical radiculopathy -improving with Flexeril/Lidocaine patch/Gabapentin/Tylenol -seen by Surg, no intervention at this time #Left foot pain/swelling, suspect gout flare (reports similar prior symptoms), resolved now #IDDM with hyperglycemia -BGM -ISS ACHS -Levemir 30 #HTN lisinopril #HLD #? 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 Coli bacteremia s/p cipro/flagyl ( finished 11/28) Visit type - Emergency Visit Emergency Visit: No - New Patient This patient is new to me today: Yes Date on this admission: 12/02/18 - Critical Care Critical Care patient: No ATTENDING PHYSICIAN STATEMENT I saw and evaluated the patient. I reviewed the resident's note and discussed the case with the resident. I agree with the resident's findings and plan as documented. SUBJECTIVE: OBJECTIVE: ASSESSMENT AND PLAN:
--- NOTE | 2018-12-02 15:31 | PN ---
Teaching Attending Note Name of Resident: Jasvir Castillo ATTENDING PHYSICIAN STATEMENT I saw and evaluated the patient. I reviewed the resident's note and discussed the case with the resident. I agree with the resident's findings and plan as documented with exceptions below. SUBJECTIVE: Patient seen and examined. Neck pain improved, no foot pain noted. OBJECTIVE: Vital Signs Period Temp Pulse Resp BP Sys/Wallace Pulse Ox Last 24 Hr 98 F-98.5 F 69-87 20-20 119-130/50-65 98-98 Intake & Output 11/29/18 11/30/18 12/01/18 12/02/18 23:59 23:59 23:59 23:59 Intake Total 0 650 240 0 Output Total 350 Balance 0 300 240 0 Weight 186 lb 5 oz General: sitting in bed in no acute distress neck: improved ROM Chest: CTAB, no rales or wheezing Extremities: no left foot swelling/redness or tenderness noted Home Medications Medication Instructions Recorded Allopurinol [Zyloprim -] 100 mg PO DAILY 11/29/18 Ciprofloxacin [Cipro (Restricted 500 mg PO Q12H 11/29/18 To Id)] Gabapentin [Neurontin] 300 mg PO BID 11/29/18 Insulin (LOG) Aspart [NovoLOG -] 0 units SQ AC 11/29/18 Insulin Glargine,Hum.rec.anlog 50 units SQ HS 11/29/18 [Lantus Solostar PEN (NF)] Levothyroxine Sodium [Levoxyl] 50 mcg PO DAILY 11/29/18 Metformin HCl [Glucophage] 500 mg PO BID 11/29/18 Omeprazole 40 mg PO DAILY 11/29/18 metroNIDAZOLE [Metronidazole] 500 mg PO TID 11/29/18 Active Medications Acetaminophen (Tylenol -) 650 mg PO Q6H PRN PRN Reason: PAIN LEVEL 4 - 6 Last Admin: 12/01/18 00:00 Dose: 650 mg Allopurinol (Zyloprim -) 100 mg PO DAILY [facility] Last Admin: 12/02/18 09:17 Dose: 100 mg Cyclobenzaprine HCl (Cyclobenzaprine Hcl) 2.5 mg PO BID [facility] Last Admin: 12/02/18 09:17 Dose: 2.5 mg Docusate Sodium (Colace -) 100 mg PO TID [facility] Last Admin: 12/02/18 14:08 Dose: 100 mg Enoxaparin Sodium (Lovenox -) 40 mg SQ DAILY [facility] Last Admin: 12/02/18 09:19 Dose: 40 mg Ferrous Gluconate (Fergon -) 324 mg PO DAILY [facility] Last Admin: 12/02/18 09:19 Dose: 324 mg Gabapentin (Neurontin -) 300 mg PO BID [facility] Last Admin: 12/02/18 09:19 Dose: 300 mg Insulin Aspart (Novolog Vial Sliding Scale -) 1 vial SQ [facility]; Protocol Last Admin: 12/02/18 12:35 Dose: 8 unit Insulin Detemir (Levemir Vial) 30 units SQ [facility] Levothyroxine Sodium (Synthroid -) 50 mcg PO DAILY@0700 [facility] Last Admin: 12/02/18 06:53 Dose: 50 mcg Lidocaine (Lidoderm Patch -) 1 patch TP DAILY [facility] Last Admin: 12/02/18 09:19 Dose: 1 patch Lisinopril (Prinivil) 10 mg PO BID [facility] Last Admin: 12/02/18 09:19 Dose: 10 mg Miscellaneous (Lidoderm Patch Removal) 1 each MC DAILY@2200 [facility] Last Admin: 12/01/18 21:11 Dose: Not Given Nystatin (Nystop Powder -) 1 applic TP DAILY PRN PRN Reason: FOR ITCHING Last Admin: 12/01/18 09:24 Dose: 1 applic Pantoprazole Sodium (Protonix -) 40 mg PO DAILY [facility] Last Admin: 12/02/18 09:19 Dose: 40 mg Polyethylene Glycol (Miralax (For Daily Use) -) 17 gm PO Q24H PRN PRN Reason: CONSTIPATION Last Admin: 11/30/18 17:08 Dose: 17 gm Prednisone (Deltasone -) 40 mg PO DAILY [facility] Last Admin: 12/02/18 09:19 Dose: 40 mg Laboratory Results - last 24 hr 12/01/18 12/01/18 12/02/18 17:32 20:34 06:35 POC Glucometer 470 360 162 12/02/18 12:09 POC Glucometer 317 Microbiology 11/30/18 14:45 Blood - Peripheral Venous Blood Culture - Preliminary NO GROWTH OBTAINED AFTER 24 HOURS, INCUBATION TO CONTINUE FOR 4 DAYS. 11/30/18 15:05 Blood - Peripheral Venous Blood Culture - Preliminary NO GROWTH OBTAINED AFTER 24 HOURS, INCUBATION TO CONTINUE FOR 4 DAYS. 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 Coli bacteremia (completed ciprofloxacin/flagyl 11/28) admitted with neck pain and left foot pain -Neck pain, suspect Acute spasm/torticollis +/- underlying cervical radiculopathy -Left foot pain/swelling, suspect gout flare (reports similar prior symptoms), resolved now -IDDM with hyperglycemia -reported recent perforated diverticulitis/E. 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 MRI C-spine noted. Symptoms improved, soft collar. Dr. Tipton's input appreciated. patient already on steroids, taper. Left foot symptoms resolved, likely from prednisone. Short steroid taper. Continue allopurinol Increase levemir 40 units hs. ISS, diabetic diet. titrate up based on blood glucose readings. Hold metformin. Continue lisinopril/levothyroxine Continue levothyroxine DVTPPx lovenox Dispo SNF vs home with services in 24 hours pending clinical improvement and surgery recs Discussed with patient and nursing, all questions answered.
[2018-12-02] MEDS: LIDOCAINE PATCH REMOVAL MC SCH (21:30)
[2018-12-02] MEDS ORDERED: INSULIN (LEVEMIR) 100 UNITS/ML UNITS SQ SCH ×2 (22:00)
[2018-12-03] MEDS: DOCUSATE SODIUM 100 MG CAPSULE (FP) PO SCH ×2 (06:40→13:36)
[2018-12-03] MEDS: LEVOTHYROXINE NA 50 MCG TABLET (FP) PO SCH (06:41)
[2018-12-03] MEDS: INSULIN SLIDING SCALE (NOVOLOG) 1 VIAL SQ SCH ×3 (06:41→16:42)
--- NOTE | 2018-12-03 08:32 | PN ---
Progress Note (short form) - Note Progress Note: NEUROSURGERY Sitting up at bedside Mild neck stiffness and L foot/big toe pain. Denies UE weakness/numbness/ tingling. No Lhermitte's. No B/B dysfunction. PE: AF, VSS general- unremarkable; Back - healed 2-3 in incision over L4-5; mild cervical paraspinal muscle spasm CN- intact; Motor- 5/5 b UE/LE; Sensation- intact LT/vibration; DTR- 2+ throughout CT- C6 hemangioma; no fx; C6-7 DDD MRI- multilevel DDD most notable C5-6 and C6-7; small central protrusion C5-6; central and L C6-7 paracentral HNP into foramen; C6 and T2 hemangioma (C6-7 HNP new c/w prior MRI from 2014 Acute/subacute central and L C6-7 HNP Medical tx only (PT/meds/soft collar) and no neck manipulation given generally intact neuro exam c cspine standpoint Surgery for cervical spine not indicated at this time Care d/w patient
[2018-12-03] MEDS: CYCLOBENZAPRINE HCL 5 MG TABLET PO SCH (09:30)
[2018-12-03] MEDS: PANTOPRAZOLE 40 MG TABLET (FP) PO SCH (09:31)
[2018-12-03] MEDS: ALLOPURINOL 100 MG TABLET (FP) PO SCH (09:31)
[2018-12-03] MEDS: ENOXAPARIN NA (PORCINE) 40 MG/0.4 ML DISP.SYRIN SQ SCH (09:31)
[2018-12-03] MEDS: FERROUS GLUCONATE 324 MG TAB (FP) PO SCH (09:31)
[2018-12-03] MEDS: LIDOCAINE 5% TOPICAL PATCH TP SCH (09:31)
[2018-12-03] MEDS: LISINOPRIL 10 MG TABLET (FP) PO SCH (09:31)
[2018-12-03] MEDS: GABAPENTIN 300 MG CAPSULE (FP) PO SCH (09:33)
[2018-12-03] MEDS ORDERED: predniSONE 20 MG TABLET (UD) PO SCH (10:00)
[2018-12-03] MEDS ORDERED: INSULIN (NOVOLOG) ASPART 100 UNITS/ML 10ML VIAL ONE ×3 (11:34→20:41)
--- NOTE | 2018-12-03 14:23 | PN ---
Teaching Attending Note Name of Resident: Jasvir Castillo ATTENDING PHYSICIAN STATEMENT I saw and evaluated the patient. I reviewed the resident's note and discussed the case with the resident. I agree with the resident's findings and plan as documented with exceptions below. SUBJECTIVE: patient seen and examined. neck pain and foot pain improved, no new complaints. OBJECTIVE: Vital Signs Period Temp Pulse Resp BP Sys/Wallace Pulse Ox Last 24 Hr 97.6 F-98.2 F 64-96 20-20 128-136/52-88 98-98 Intake & Output 11/30/18 12/01/18 12/02/18 12/03/18 23:59 23:59 23:59 23:59 Intake Total 635 661 0747 200 Output Total 350 Balance 838 396 1184 200 General: sitting in bed in no acute distress neck: improved ROM Chest: CTAB, no rales or wheezing Extremities: no left foot swelling/redness or tenderness noted Home Medications Medication Instructions Recorded Allopurinol [Zyloprim -] 100 mg PO DAILY 11/29/18 Gabapentin [Neurontin] 300 mg PO BID 11/29/18 Insulin (LOG) Aspart [NovoLOG -] 0 units SQ AC 11/29/18 Insulin Glargine,Hum.rec.anlog 50 units SQ HS 11/29/18 [Lantus Solostar PEN -] Levothyroxine Sodium [Levoxyl] 50 mcg PO DAILY 11/29/18 Metformin HCl [Glucophage] 500 mg PO BID 11/29/18 Omeprazole 40 mg PO DAILY 11/29/18 Acetaminophen [Tylenol .Regular 650 mg PO Q6H PRN #20 tablet 12/03/18 Strength -] Cyclobenzaprine HCl 2.5 mg PO BID #10 tablet 12/03/18 Ferrous Gluconate [Fergon -] 324 mg PO DAILY #30 tab 12/03/18 Lisinopril [Prinivil] 10 mg PO BID tablet 12/03/18 Prednisone See Taper PO DAILY #6 tablet 12/03/18 Laboratory Results - last 24 hr 12/02/18 12/02/18 12/03/18 16:56 21:28 06:38 POC Glucometer 467 345 143 12/03/18 10:54 POC Glucometer 190 ASSESSMENT AND PLAN: 68 yof with PMhx of HTN, HLD, GERD, IDDM, diabetic neuropathy, lumbar disc disease with sciatica s/p L4-L5 laminectomy (2014), 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 Coli bacteremia (completed ciprofloxacin/flagyl 11/28) admitted with neck pain and left foot pain -Neck pain, suspect Acute spasm/torticollis +/- underlying cervical radiculopathy -Left foot pain/swelling, suspect gout flare (reports similar prior symptoms), resolved now -IDDM with hyperglycemia -reported recent perforated diverticulitis/E. 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 PT fawn noted Outpatient follow up with Dr. Saeed Albrecht prednisone taper tylenol/flexeril/gabapentin/lidocaine patch/bengay cream D/c home with services today. discussed with patient and nursing.
[2018-12-03 17:03] VITALS: BP 125/54; PULSE 78; TEMP 98.3
--- NOTE | 2018-12-03 17:12 | DS ---
Physical Exam: SUBJECTIVE: Patient seen and examined at bedside. No acute events. OBJECTIVE: Vital Signs Period Temp Pulse Resp BP Sys/Wallace Pulse Ox Last 24 Hr 97.6 F-98.3 F 64-96 20-20 116-136/52-88 98-98 PHYSICAL EXAM GEN: NAD, comfortable in bed HEENT: NCAT, EOMI Neck: soft neck collar open under pt's neck on arriving in room. Pt moves neck freely with some pain. 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 Coli bacteremia (completed ciprofloxacin/flagyl 11/28) admitted with neck pain and left foot pain Pt presented with neck pain. She was found to havespasm/torticollis +/- underlying cervical radiculopathy. Pain improved with Flexeril/Lidocaine patch/ Gabapentin/Tylenol. She was seen by neurosurgery who felt there was no need for intervention at this time. She also had left foot pain/swelling, which was suspicious for gout flare ( reports similar prior symptoms). Symptoms resolved promptly. Pt's IDDM with hyperglycemia was treated with usual BGM, ISS ACHS, and Levemir 30. Pt's HTN was treated with lisinopril. Pt was given her usual levothyroxine. Gout was treated with allopurinol. Pt is stable for discharge. Minutes to complete discharge: 30 Discharge Summary Reason For Visit: SEVER PAIN, UNABLE TO WALK,NECK PAIN Current Active Problems Foot pain (Acute) Neck pain (Acute) Severe pain (Acute) Unable to walk (Acute) Condition: Stable - Instructions Diet, Activity, Other Instructions: You were in the hospital because of spasm in your neck muscles and suspected gout flare in your toe You were placed on muscle medications, soft neck collar and short prednisone taper with improvement. You were seen by neurosurgeon Dr. Tipton and advised non surgical treatment and follow up. MEDICATIONS: -Tylenol 650 mg q6h as needed for pain -cyclobenzaprine 2.5 mg twice daily -Ferrous Gluconate 324mg daily -Prednisone as follows: 20 mg daily for 2 days, tomorrow 12/04 and 12/05 10 mg daily for 2 days on 12/06 and 12/07, then off Lidocaine patch once daily as needed (12 hours on and 12 hours off in a 24 hour period) bengay cream to affected neck area as needed Continue home medications as before. INSTRUCTIONS: Soft neck collar as needed for comfort. Please note that the new medication flexeril can make you sleepy or dizzy. DO NOT TAKE IF DIZZY OR DROWSY. You can take twice daily till symptoms improve and then changed to once or twice daily only as needed. Do not drive, operate heavy machinery or take important decisions while on his medication. Please note that prednisone can increase your blood sugars, so you recommended to check your blood sugars 2-3 times daily till next doctor visit. FOLLOW UP; With primary care doctor in [address] Tipton in 1 month or earlier if symptoms fail to full resolve. If your symptoms get worse, you notice new leg or arm weakness/tingling/numbness , any urinary or bowel incontinence, severe pain or any new concerns, please call 911 or come to the ED. Referrals: Cristóbal Tipton MD [Staff Physician] - Disposition: [facility]/HOME HEALTH CARE - Home Medications Comprehensive Discharge Medication List: Ambulatory Orders Allopurinol [Zyloprim -] 100 mg PO DAILY 11/29/18 Gabapentin [Neurontin] 300 mg PO BID 11/29/18 Insulin (LOG) Aspart [NovoLOG -] 0 units SQ AC 11/29/18 Insulin Glargine,Hum.rec.anlog [Lantus Solostar PEN -] 50 units SQ HS 11/29/18 Levothyroxine Sodium [Levoxyl] 50 mcg PO DAILY 11/29/18 Metformin HCl [Glucophage] 500 mg PO BID 11/29/18 Omeprazole 40 mg PO DAILY 11/29/18 Acetaminophen [Tylenol .Regular Strength -] 650 mg PO Q6H PRN #20 tablet Cyclobenzaprine HCl 2.5 mg PO BID #10 tablet 12/03/18 Ferrous Gluconate [Fergon -] 324 mg PO DAILY #30 tab 12/03/18 Lidocaine Patch Removal [Lidoderm Patch Removal] 1 each MC DAILY@2200 PRN #7 each 12/03/18 Lisinopril [Prinivil] 10 mg PO BID tablet 12/03/18 Menthol [Bengay Ultra Strength] 1 each TP BID PRN #1 adh..patch 12/03/18 Prednisone See Taper PO DAILY #6 tablet 12/03/18 This patient is new to me today: No Emergency Visit: No Critical Care patient: No - Discharge Referral Referred to [facility] Med [facility] No ATTENDING PHYSICIAN STATEMENT I saw and evaluated the patient. I reviewed the resident's note and discussed the case with the resident. I agree with the resident's findings and plan as documented. SUBJECTIVE: OBJECTIVE: ASSESSMENT AND PLAN:
== END 2018-12-03 20:53 | disposition home or self-care (01) | DRG 74 ==
LOC: JER 09:58 → JERBED 17:07 → J8W 20:36
PROVIDERS: ADMIT Internal Medicine; ATTEND Hospitalist
DX: M54.12 Radiculopathy, cervical region (principal); M50.322 Other cervical disc degeneration at C5-C6 level; I10 Essential (primary) hypertension; K29.70 Gastritis, unspecified, without bleeding; M79.672 Pain in left foot; E78.5 Hyperlipidemia, unspecified; M10.9 Gout, unspecified; E11.40 Type 2 diabetes mellitus with diabetic neuropathy, unspecified; E66.8 Other obesity; Z68.33 Body mass index [BMI] 33.0-33.9, adult; D64.9 Anemia, unspecified; E11.65 Type 2 diabetes mellitus with hyperglycemia; K21.9 Gastro-esophageal reflux disease without esophagitis; M51.36 Other intervertebral disc degeneration, lumbar region; D18.00 Hemangioma unspecified site; M43.6 Torticollis; R25.2 Cramp and spasm; Z90.5 Acquired absence of kidney; Z85.528 Personal history of other malignant neoplasm of kidney
CPT/HCPCS: 36415; 72125-TC; 72141-TC; 73630-TC-LT; 80053; 81003; 82962; 83540; 83550; 83735; 84100; 84550; 85025; 85044; 87040; 93005; 93010; 97116-GP; 97161-GP; 99284-25; J0131

== ENCOUNTER 2018-12-14 12:31 | Inpatient (IN) | payer OTHER | END 2018-12-16 14:25 | disposition home health service (06) | LOC: JER 12:31 → JERBED 15:56 → J4W 20:33 ==

== ENCOUNTER 2020-10-27 22:55 | Observation (INO) | payer OTHER ==
[2020-10-27 23:11] VITALS: BMI 33.6
[2020-10-27] MEDS ORDERED: morphine CARPU-JECT 4 MG/1 ML DISP.SYRIN IVPUSH ONE (23:57)
[2020-10-27] MEDS ORDERED: ONDANSETRON 4 MG/2 ML VIAL IVPUSH ONE (23:57)
[2020-10-28] MEDS ORDERED: ONDANSETRON 4 MG/2 ML VIAL ONE (00:08)
[2020-10-28] MEDS ORDERED: morphine SULFATE 4 MG/ML VIAL ONE (00:08)
[2020-10-28 00:51] LABS: BASO % 0.5 % (0-2.0); EOS % 2.9 % (0-4.5); HEMATOCRIT 34.1 % (32.4-45.2); HEMOGLOBIN 11.2 GM/dL (10.7-15.3); LYMPH % 36.6 % (8-40); MCH 26.9 pg (25.7-33.7); MEAN CELL VOLUME 81.7 fl (80-96); MEAN PLT VOLUME 8.6 fl (7.5-11.1); PLATELET COUNT 170 10^3/uL (134-434); RBC 4.17 M/mm3 (3.60-5.2); RDW 14.4 % (11.6-15.6); WHITE BLOOD COUNT 7.6 K/mm3 (4.0-10.0)
[2020-10-28 01:00] LABS: INR 1.14 (0.83-1.09)
[2020-10-28 01:03] LABS: ACTIVATED PTT 29.8 SECONDS (25.2-36.5)
[2020-10-28 01:10] LABS: CHLORIDE 110 mmol/L (98-107); SODIUM 144 mmol/L (136-145)
[2020-10-28 01:12] LABS: CALCIUM 9.3 mg/dL (8.5-10.1)
[2020-10-28 01:13] LABS: ALBUMIN 3.7 g/dl (3.4-5.0); ANION GAP 9 MMOL/L (8-16); BLOOD UREA NITROGEN 19.6 mg/dL (7-18); CO2 25 mmol/L (21-32); GLUCOSE,RANDOM 79 mg/dL (74-106)
[2020-10-28 01:16] LABS: CREATININE 0.9 mg/dL (0.55-1.3); SGOT/AST 27 U/L (15-37); SGPT/ALT 34 U/L (13-61)
[2020-10-28 01:18] LABS: BILIRUBIN,TOTAL 0.3 mg/dL (0.2-1); TOT PROT 7.2 g/dl (6.4-8.2)
[2020-10-28 01:19] LABS: ALK PHOS 63 U/L (45-117)
[2020-10-28] MEDS ORDERED: KETOROLAC TROMETHAMINE 15 MG/ML VIAL IVPUSH PRN (05:11)
[2020-10-28] MEDS ORDERED: DEXAMETHASONE SOD PHOSPHATE 10 MG/1 ML VIAL ONE ×2 (05:47→06:34)
[2020-10-28] MEDS ORDERED: CYCLOBENZAPRINE HCL 5 MG TABLET PO ONE (06:00)
[2020-10-28] MEDS ORDERED: DEXAMETHASONE SOD PHOSPHATE 10 MG/1 ML VIAL IVPUSH SCH (06:00)
[2020-10-28] MEDS ORDERED: ACETAMINOPHEN 1000 MG/100 ML VIAL (NON FORMULARY) IVPB ONE (06:20)
[2020-10-28] MEDS ORDERED: LIDOCAINE 5% TOPICAL PATCH ONE (06:35)
[2020-10-28] MEDS ORDERED: ACETAMINOPHEN INJECTION 100 ML IVPB ONE (06:35)
[2020-10-28] MEDS: LIDOCAINE 5% TOPICAL PATCH TP SCH ×2 (06:51→10:05)
[2020-10-28] MEDS: LEVOTHYROXINE NA 50 MCG TABLET (FP) PO SCH (06:52)
[2020-10-28] MEDS: INSULIN SLIDING SCALE (NOVOLOG) 1 VIAL SQ SCH ×4 (07:40→22:16)
[2020-10-28] MEDS ORDERED: LOSARTAN POTASSIUM 100 MG TABLET PO SCH (10:00)
[2020-10-28] MEDS: PANTOPRAZOLE 40 MG TABLET PO SCH (10:26)
[2020-10-28] MEDS: ENOXAPARIN NA (PORCINE) 40 MG/0.4 ML DISP.SYRIN SQ SCH (10:26)
[2020-10-28] MEDS: CARVEDILOL 6.25 MG TABLET (FP) PO SCH ×2 (10:26→21:39)
[2020-10-28] MEDS: GABAPENTIN 300 MG CAPSULE PO SCH ×2 (10:26→21:39)
[2020-10-28] MEDS ORDERED: MORPHINE SULFATE 2 MG/ML VIAL IM ONE (14:30)
[2020-10-28] MEDS ORDERED: IBUPROFEN 800 MG/8 ML IJ IVPB SCH (14:45)
[2020-10-28] MEDS ORDERED: diazePAM 5 MG TABLET PO ONE (15:11)
[2020-10-28] MEDS: IBUPROFEN 800 MG/8 ML IJ IVPB SCH ×2 (15:27→21:38)
[2020-10-28] MEDS ORDERED: SODIUM CHLORIDE 0.45% 1,000 ML IV SCH (19:15)
[2020-10-28] MEDS ORDERED: diazePAM 2 MG TABLET PO ONE (19:17)
[2020-10-28] MEDS: LACTOBACILLUS ACIDOPHILUS 1 TABLET PO SCH (20:05)
[2020-10-28] MEDS: ATORVASTATIN CA 20 MG TABLET (FP) PO SCH (21:39)
[2020-10-28] MEDS: ZINC OXIDE 20% TOPICAL OINTMENT 30 GM TUBE TP SCH (21:39)
[2020-10-28] MEDS ORDERED: INSULIN (NOVOLOG) ASPART 100 UNITS/ML 10ML VIAL ONE (21:57)
[2020-10-28] MEDS: LIDOCAINE PATCH REMOVAL MC SCH (22:16)
[2020-10-29] MEDS ORDERED: LOSARTAN POTASSIUM 50 MG TABLET PO SCH (00:05)
[2020-10-29] MEDS ORDERED: ACETAMINOPHEN 1000 MG/100 ML VIAL (NON FORMULARY) IVPB ONE (00:56)
[2020-10-29] MEDS ORDERED: MORPHINE SULFATE 2 MG/ML VIAL IVPUSH ONE (00:56)
[2020-10-29] MEDS: IBUPROFEN 800 MG/8 ML IJ IVPB SCH (03:36)
[2020-10-29] MEDS: LEVOTHYROXINE NA 50 MCG TABLET (FP) PO SCH (06:14)
[2020-10-29] MEDS: INSULIN SLIDING SCALE (NOVOLOG) 1 VIAL SQ SCH ×4 (06:14→21:50)
[2020-10-29 07:47] LABS: HEMATOCRIT 33.5 % (32.4-45.2); HEMOGLOBIN 11.1 GM/dL (10.7-15.3); MCH 27.4 pg (25.7-33.7); MEAN CELL VOLUME 82.9 fl (80-96); MEAN PLT VOLUME 8.4 fl (7.5-11.1); PLATELET COUNT 175 10^3/uL (134-434); RBC 4.05 M/mm3 (3.60-5.2); RDW 14.6 % (11.6-15.6); WHITE BLOOD COUNT 9.5 K/mm3 (4.0-10.0)
[2020-10-29 08:05] LABS: CALCIUM 8.6 mg/dL (8.5-10.1)
[2020-10-29 08:06] LABS: BLOOD UREA NITROGEN 27.4 mg/dL (7-18); MAGNESIUM 1.6 mg/dL (1.8-2.4)
[2020-10-29 08:09] LABS: CREATININE 1.4 mg/dL (0.55-1.3)
[2020-10-29 08:10] LABS: PHOSPHOROUS 3.2 mg/dL (2.5-4.9)
[2020-10-29] MEDS ORDERED: MAGNESIUM SULF 50% (8.12 MEQ/2 ML-1 GM VIAL) IVPB ONE (08:21)
[2020-10-29] MEDS ORDERED: ACETAMINOPHEN 1000 MG/100 ML VIAL (NON FORMULARY) IVPB SCH (08:30)
[2020-10-29] MEDS ORDERED: SODIUM CHLORIDE 0.45% 1,000 ML IV SCH ×2 (08:30→13:14)
[2020-10-29] MEDS ORDERED: MORPHINE SULFATE 2 MG/ML VIAL IVPUSH PRN (09:48)
[2020-10-29] MEDS: ZINC OXIDE 20% TOPICAL OINTMENT 30 GM TUBE TP SCH ×2 (10:00→22:00)
[2020-10-29] MEDS: DEXAMETHASONE SOD PHOSPHATE 4 MG/1 ML VIAL IVPUSH SCH (10:07)
[2020-10-29] MEDS: LACTOBACILLUS ACIDOPHILUS 1 TABLET PO SCH (10:11)
[2020-10-29] MEDS: ENOXAPARIN NA (PORCINE) 40 MG/0.4 ML DISP.SYRIN SQ SCH (10:11)
[2020-10-29] MEDS: PANTOPRAZOLE 40 MG TABLET PO SCH (10:11)
[2020-10-29] MEDS: CARVEDILOL 6.25 MG TABLET (FP) PO SCH ×2 (10:11→21:50)
[2020-10-29] MEDS: LOSARTAN POTASSIUM 50 MG TABLET PO SCH (10:11)
[2020-10-29] MEDS: LIDOCAINE 5% TOPICAL PATCH TP SCH (10:11)
[2020-10-29] MEDS: ACETAMINOPHEN 1000 MG/100 ML VIAL (NON FORMULARY) IVPB SCH ×4 (10:12→20:50)
[2020-10-29 12:06] LABS: URINE APPEARANCE CLEAR; URINE BILIRUBIN NEGATIVE (NEGATIVE); URINE COLOR YELLOW; URINE GLUCOSE (UA) NEGATIVE (NEGATIVE); URINE KETONE NEGATIVE (NEGATIVE); URINE LEUK ESTERASE NEGATIVE (NEGATIVE); URINE NITRITE NEGATIVE (NEGATIVE); URINE PROTEIN NEGATIVE (NEGATIVE); URINE UROBILINOGEN 0.2 mg/dL (0.2-1.0)
[2020-10-29] MEDS: GABAPENTIN 300 MG CAPSULE PO SCH ×2 (14:00→21:50)
[2020-10-29] MEDS ORDERED: morphine SULFATE IMMEDIATE RELEASE 30 MG TAB PO PRN (18:31)
[2020-10-29] MEDS ORDERED: INSULIN (NOVOLOG) ASPART 100 UNITS/ML 10ML VIAL ONE (21:36)
[2020-10-29] MEDS: ATORVASTATIN CA 20 MG TABLET (FP) PO SCH (21:50)
[2020-10-29] MEDS: LIDOCAINE PATCH REMOVAL MC SCH (22:00)
[2020-10-30] MEDS ORDERED: Insulin (LOG) Aspart 100 UNITS/ML VIAL SQ ONE (00:39)
[2020-10-30] MEDS: LEVOTHYROXINE NA 50 MCG TABLET (FP) PO SCH (05:59)
[2020-10-30] MEDS: GABAPENTIN 300 MG CAPSULE PO SCH ×3 (05:59→21:00)
[2020-10-30] MEDS: INSULIN SLIDING SCALE (NOVOLOG) 1 VIAL SQ SCH ×4 (06:18→21:01)
[2020-10-30 08:46] LABS: HEMATOCRIT 34.7 % (32.4-45.2); HEMOGLOBIN 11.5 GM/dL (10.7-15.3); MCH 27.6 pg (25.7-33.7); MCHC 33.2 g/dl (32.0-36.0); MEAN PLT VOLUME 8.9 fl (7.5-11.1); PLATELET COUNT 190 10^3/uL (134-434); RBC 4.18 M/mm3 (3.60-5.2); RDW 14.4 % (11.6-15.6); WHITE BLOOD COUNT 8.2 K/mm3 (4.0-10.0)
[2020-10-30 09:11] LABS: CREATININE 1.1 mg/dL (0.55-1.3)
[2020-10-30 09:12] LABS: BLOOD UREA NITROGEN 23.8 mg/dL (7-18); PHOSPHOROUS 2.7 mg/dL (2.5-4.9)
[2020-10-30 09:13] LABS: ALBUMIN 3.7 g/dl (3.4-5.0); BILIRUBIN,TOTAL 0.4 mg/dL (0.2-1)
[2020-10-30] MEDS: LIDOCAINE 5% TOPICAL PATCH TP SCH (09:46)
[2020-10-30] MEDS: DEXAMETHASONE SOD PHOSPHATE 4 MG/1 ML VIAL IVPUSH SCH (09:46)
[2020-10-30] MEDS: ENOXAPARIN NA (PORCINE) 40 MG/0.4 ML DISP.SYRIN SQ SCH (09:47)
[2020-10-30] MEDS: LOSARTAN POTASSIUM 50 MG TABLET PO SCH (09:48)
[2020-10-30] MEDS: LACTOBACILLUS ACIDOPHILUS 1 TABLET PO SCH (09:48)
[2020-10-30] MEDS: PANTOPRAZOLE 40 MG TABLET PO SCH (09:48)
[2020-10-30] MEDS: CARVEDILOL 6.25 MG TABLET (FP) PO SCH ×2 (09:48→21:00)
[2020-10-30] MEDS: ZINC OXIDE 20% TOPICAL OINTMENT 30 GM TUBE TP SCH ×2 (09:51→21:01)
[2020-10-30] MEDS ORDERED: ACETAMINOPHEN 1000 MG/100 ML VIAL (NON FORMULARY) IVPB PRN (11:13)
[2020-10-30] MEDS: MELATONIN 5 MG TABLETS PO SCH (21:00)
[2020-10-30] MEDS: ATORVASTATIN CA 20 MG TABLET (FP) PO SCH (21:00)
[2020-10-30] MEDS: INSULIN (LEVEMIR) 100 UNITS/ML UNITS SQ SCH (21:01)
[2020-10-30] MEDS: LIDOCAINE PATCH REMOVAL MC SCH (21:01)
[2020-10-31] MEDS: LEVOTHYROXINE NA 50 MCG TABLET (FP) PO SCH (06:09)
[2020-10-31] MEDS: INSULIN SLIDING SCALE (NOVOLOG) 1 VIAL SQ SCH ×4 (06:09→21:30)
[2020-10-31] MEDS: GABAPENTIN 300 MG CAPSULE PO SCH ×3 (06:09→21:24)
[2020-10-31] MEDS ORDERED: INSULIN (NOVOLOG) ASPART 100 UNITS/ML 10ML VIAL ONE (06:21)
[2020-10-31] MEDS: CARVEDILOL 6.25 MG TABLET (FP) PO SCH ×2 (09:19→21:24)
[2020-10-31] MEDS: LIDOCAINE 5% TOPICAL PATCH TP SCH (09:19)
[2020-10-31] MEDS: LACTOBACILLUS ACIDOPHILUS 1 TABLET PO SCH (09:19)
[2020-10-31] MEDS: LOSARTAN POTASSIUM 50 MG TABLET PO SCH (09:19)
[2020-10-31] MEDS: DEXAMETHASONE SOD PHOSPHATE 4 MG/1 ML VIAL IVPUSH SCH (09:20)
[2020-10-31] MEDS: PANTOPRAZOLE 40 MG TABLET PO SCH (09:20)
[2020-10-31] MEDS: ENOXAPARIN NA (PORCINE) 40 MG/0.4 ML DISP.SYRIN SQ SCH (09:22)
[2020-10-31] MEDS: ZINC OXIDE 20% TOPICAL OINTMENT 30 GM TUBE TP SCH ×2 (09:22→21:25)
[2020-10-31 09:26] LABS: BASO % 0.3 % (0-2.0); EOS % 1.2 % (0-4.5); LYMPH % 35.1 % (8-40); MCH 27.7 pg (25.7-33.7); MCHC 33.3 g/dl (32.0-36.0); MEAN CELL VOLUME 83.1 fl (80-96); MEAN PLT VOLUME 8.9 fl (7.5-11.1); MONO % 9.3 % (3.8-10.2); NEUT % 54.1 % (42.8-82.8); PLATELET COUNT 223 10^3/uL (134-434); RBC 4.33 M/mm3 (3.60-5.2); WHITE BLOOD COUNT 11.5 K/mm3 (4.0-10.0)
[2020-10-31 09:29] LABS: INR 1.14 (0.83-1.09)
[2020-10-31 09:49] LABS: CALCIUM 9.2 mg/dL (8.5-10.1)
[2020-10-31 09:50] LABS: ALBUMIN 3.6 g/dl (3.4-5.0); BLOOD UREA NITROGEN 27.5 mg/dL (7-18)
[2020-10-31 09:53] LABS: CREATININE 1.1 mg/dL (0.55-1.3); PHOSPHOROUS 2.9 mg/dL (2.5-4.9)
[2020-10-31 09:54] LABS: BILIRUBIN,TOTAL 0.4 mg/dL (0.2-1); TOT PROT 7.1 g/dl (6.4-8.2)
[2020-10-31] MEDS ORDERED: LACTATED RINGERS SOLUTION 1,000 ML/1,000 ML INFUS.BAG IV SCH (11:15)
[2020-10-31] MEDS ORDERED: INSULIN (LEVEMIR) 100 UNITS/ML UNITS SQ ONE (18:08)
[2020-10-31] MEDS: ATORVASTATIN CA 20 MG TABLET (FP) PO SCH (21:24)
[2020-10-31] MEDS: LIDOCAINE PATCH REMOVAL MC SCH (21:24)
[2020-10-31] MEDS: MELATONIN 5 MG TABLETS PO SCH (21:24)
[2020-10-31] MEDS: INSULIN (LEVEMIR) 100 UNITS/ML UNITS SQ SCH (21:29)
[2020-11-01] MEDS ORDERED: BISMUTH SUBSALICYLATE 262 MG/15 ML BTL PO ONE (00:30)
[2020-11-01] MEDS: GABAPENTIN 300 MG CAPSULE PO SCH ×3 (06:15→16:44)
[2020-11-01] MEDS: LEVOTHYROXINE NA 50 MCG TABLET (FP) PO SCH (06:16)
[2020-11-01] MEDS: INSULIN SLIDING SCALE (NOVOLOG) 1 VIAL SQ SCH ×4 (06:16→16:40)
[2020-11-01] MEDS ORDERED: LIDOCAINE HCL 1%, 10 MG/ML (20ML VIAL) SQ ONE (08:31)
[2020-11-01] MEDS ORDERED: BUPIVACAINE HCL/PF 0.25% (2.5MG/ML) 10 ML VIAL IJ ONE (08:32)
[2020-11-01] MEDS ORDERED: IOHEXOL 180 MG/1 ML ML IJ ONE (08:33)
[2020-11-01 09:48] LABS: BASO % 0.4 % (0-2.0); EOS % 1.3 % (0-4.5); HEMATOCRIT 37.2 % (32.4-45.2); HEMOGLOBIN 12.5 GM/dL (10.7-15.3); LYMPH % 36.7 % (8-40); MCH 27.5 pg (25.7-33.7); MCHC 33.7 g/dl (32.0-36.0); MEAN CELL VOLUME 81.8 fl (80-96); MEAN PLT VOLUME 8.9 fl (7.5-11.1); MONO % 8.5 % (3.8-10.2); NEUT % 53.1 % (42.8-82.8); PLATELET COUNT 231 10^3/uL (134-434); RBC 4.54 M/mm3 (3.60-5.2); RDW 14.5 % (11.6-15.6); WHITE BLOOD COUNT 11.2 K/mm3 (4.0-10.0)
[2020-11-01 10:11] LABS: ALBUMIN 3.7 g/dl (3.4-5.0); BILIRUBIN,TOTAL 0.5 mg/dL (0.2-1); BLOOD UREA NITROGEN 27.1 mg/dL (7-18); CALCIUM 9.4 mg/dL (8.5-10.1); CREATININE 1.1 mg/dL (0.55-1.3); MAGNESIUM 1.6 mg/dL (1.8-2.4); PHOSPHOROUS 3.2 mg/dL (2.5-4.9); TOT PROT 7.2 g/dl (6.4-8.2)
[2020-11-01] MEDS ORDERED: MIDAZOLAM HCL 2 MG/2 ML SINGLE DOSE VIAL ONE (10:24)
[2020-11-01] MEDS: DEXAMETHASONE SOD PHOSPHATE 4 MG/1 ML VIAL IVPUSH SCH (11:52)
[2020-11-01] MEDS: LACTOBACILLUS ACIDOPHILUS 1 TABLET PO SCH (11:53)
[2020-11-01] MEDS: CARVEDILOL 6.25 MG TABLET (FP) PO SCH (11:53)
[2020-11-01] MEDS: LOSARTAN POTASSIUM 50 MG TABLET PO SCH (11:53)
[2020-11-01] MEDS: LIDOCAINE 5% TOPICAL PATCH TP SCH (11:54)
[2020-11-01] MEDS: ZINC OXIDE 20% TOPICAL OINTMENT 30 GM TUBE TP SCH (11:54)
[2020-11-01] MEDS: PANTOPRAZOLE 40 MG TABLET PO SCH (11:54)
[2020-11-01 15:24] VITALS: BP 137/57; PULSE 64; TEMP 98.6
[2020-11-01] MEDS ORDERED: INSULIN (LEVEMIR) 100 UNITS/ML UNITS SQ ONE (16:32)
== END 2020-11-01 19:04 | disposition home or self-care (01) ==
LOC: JER 22:55 → INTOOBSV 10-28 03:08 → JERBED 10-28 03:08 → J6S 10-28 09:15
PROVIDERS: ADMIT Internal Medicine; ATTEND Internal Medicine
PROC: 3E033NZ Introduction of Analgesics, Hypnotics, Sedatives into Peripheral Vein, Percutaneous Approach (ICD-10-PCS; principal; 2020-10-28)
PROC: 3E023GC Introduction of Other Therapeutic Substance into Muscle, Percutaneous Approach (ICD-10-PCS; 2020-10-28)
PROC: 3E033GC Introduction of Other Therapeutic Substance into Peripheral Vein, Percutaneous Approach (ICD-10-PCS; 2020-10-28)
PROC: 3E013VG Introduction of Insulin into Subcutaneous Tissue, Percutaneous Approach (ICD-10-PCS; 2020-10-28)
PROC: 3E0337Z Introduction of Electrolytic and Water Balance Substance into Peripheral Vein, Percutaneous Approach (ICD-10-PCS; 2020-10-28)
DX: M54.5 Low back pain (principal); G89.29 Other chronic pain; E11.9 Type 2 diabetes mellitus without complications; I10 Essential (primary) hypertension; E78.5 Hyperlipidemia, unspecified; E66.9 Obesity, unspecified; Z68.33 Body mass index [BMI] 33.0-33.9, adult; Z88.0 Allergy status to penicillin; Z88.6 Allergy status to analgesic agent; E03.9 Hypothyroidism, unspecified; M19.90 Unspecified osteoarthritis, unspecified site; K76.0 Fatty (change of) liver, not elsewhere classified; Z29.9 Encounter for prophylactic measures, unspecified; Z85.53 Personal history of malignant neoplasm of renal pelvis; N17.9 Acute kidney failure, unspecified; R19.7 Diarrhea, unspecified
CPT/HCPCS: 36415; 71045-TC-FY; 72131-TC; 72148-TC; 74176-TC; 76000-TC-FY; 76775-TC; 80048; 80053; 81003; 82436; 82570; 82962; 83735; 84100; 84133; 84155; 84165; 84300; 84484; 85025; 85027; 85610; 85730; 87177; 87209; 87324; 87449; 93005; 93010; 93970-TC; 96361; 96372; 96374; 96375; 96376; 97116-GP; 97162-GP; 99285-25; C9803; G0378; J0131; J1100; U0003; U0005

== ENCOUNTER 2021-07-12 08:04 | Observation (INO) | payer OTHER ==
[2021-07-12] MEDS ORDERED: ONDANSETRON 4 MG/2 ML VIAL IVPB ONE (08:58)
[2021-07-12] MEDS ORDERED: MECLIZINE HCL 25 MG TABLET (FP) PO ONE (08:58)
[2021-07-12] MEDS ORDERED: ACETAMINOPHEN 1000 MG/100 ML BAG IVPB ONE (08:59)
[2021-07-12] MEDS ORDERED: METOCLOPRAMIDE HCL INJECTION 10 MG/2 ML VIAL IVPB ONE (08:59)
[2021-07-12 09:52] LABS: BASO % 0.4 % (0-2.0); EOS % 2.4 % (0-4.5); HEMATOCRIT 36.8 % (32.4-45.2); HEMOGLOBIN 11.9 GM/dL (10.7-15.3); MCH 26.5 pg (25.7-33.7); MCHC 32.3 g/dl (32.0-36.0); MEAN PLT VOLUME 8.9 fl (7.5-11.1); NEUT % 62.2 % (42.8-82.8); PLATELET COUNT 150 10^3/uL (134-434); RBC 4.49 M/mm3 (3.60-5.2); RDW 14.8 % (11.6-15.6); WHITE BLOOD COUNT 6.5 K/mm3 (4.0-10.0)
[2021-07-12] MEDS ORDERED: ONDANSETRON 4 MG/2 ML VIAL ONE (09:53)
[2021-07-12] MEDS ORDERED: ACETAMINOPHEN 500 MG TABLET (FP) PO ONE (09:53)
[2021-07-12] MEDS ORDERED: METOCLOPRAMIDE HCL INJECTION 10 MG/2 ML VIAL ONE (09:53)
[2021-07-12] MEDS ORDERED: MECLIZINE HCL 25 MG TABLET (FP) ONE ×3 (09:53→21:09)
[2021-07-12] MEDS ORDERED: ACETAMINOPHEN INJECTION 100 ML IVPB ONE (09:53)
[2021-07-12 10:13] LABS: CALCIUM 9.9 mg/dL (8.5-10.1)
[2021-07-12 10:14] LABS: ALBUMIN 3.5 g/dl (3.4-5.0); BLOOD UREA NITROGEN 14.5 mg/dL (7-18)
[2021-07-12 10:17] LABS: CREATININE 0.9 mg/dL (0.55-1.3)
[2021-07-12 10:18] LABS: BILIRUBIN,TOTAL 0.6 mg/dL (0.2-1)
[2021-07-12 10:19] LABS: TOT PROT 7.5 g/dl (6.4-8.2)
[2021-07-12] MEDS ORDERED: ACETAMINOPHEN 325 MG TABLET (FP) ONE (10:31)
[2021-07-12] MEDS ORDERED: MECLIZINE HCL 25 MG TABLET (FP) PO PRN (11:54)
[2021-07-12] MEDS ORDERED: KETOROLAC TROMETHAMINE 15 MG/ML VIAL IVPUSH ONE (11:55)
[2021-07-12] MEDS ORDERED: KETOROLAC TROMETHAMINE 15 MG/ML VIAL ONE (12:11)
[2021-07-12 12:36] LABS: URINE APPEARANCE CLEAR; URINE BILIRUBIN NEGATIVE (NEGATIVE); URINE COLOR YELLOW; URINE GLUCOSE (UA) NEGATIVE (NEGATIVE); URINE KETONE NEGATIVE (NEGATIVE); URINE LEUK ESTERASE NEGATIVE (NEGATIVE); URINE NITRITE NEGATIVE (NEGATIVE); URINE PROTEIN NEGATIVE (NEGATIVE); URINE UROBILINOGEN 0.2 mg/dL (0.2-1.0)
[2021-07-12] MEDS ORDERED: PANTOPRAZOLE SODIUM 40 MG VIAL IVPUSH ONE (14:16)
[2021-07-12] MEDS ORDERED: MAG HYDROX/AL HYDROX/SIMETH 30 ML UNIT-DOSE CUP PO ONE (14:16)
[2021-07-12] MEDS ORDERED: SUCRALFATE 1 GM TABLET (FP) PO ONE (14:17)
[2021-07-12] MEDS ORDERED: SUCRALFATE 1 GM TABLET (FP) ONE (14:19)
[2021-07-12] MEDS ORDERED: FAMOTIDINE 20 MG/50 ML IVPB 20 MG/50 ML MG IVPB ONE (14:20)
[2021-07-12] MEDS ORDERED: PANTOPRAZOLE SODIUM 40 MG/100 ML BAG IVPB ONE (14:20)
[2021-07-12] MEDS ORDERED: MAG HYDROX/AL HYDROX/SIMETH 30 ML UNIT-DOSE CUP ONE (14:20)
[2021-07-12] MEDS ORDERED: ACETAMINOPHEN 325 MG TABLET (FP) PO PRN (15:05)
[2021-07-12] MEDS ORDERED: FAMOTIDINE 20 MG TABLET PO PRN (15:05)
[2021-07-12] MEDS: MECLIZINE HCL 25 MG TABLET (FP) PO SCH ×2 (15:13→21:10)
[2021-07-12] MEDS: PANTOPRAZOLE 40 MG TABLET PO SCH (15:24)
[2021-07-12] MEDS: INSULIN SLIDING SCALE (NOVOLOG) 1 VIAL SQ SCH (18:02)
[2021-07-12] MEDS ORDERED: MAG HYDROX/AL HYDROX/SIMETH 30 ML UNIT-DOSE CUP PO PRN (21:07)
[2021-07-12] MEDS ORDERED: ATORVASTATIN CA 20 MG TABLET (FP) ONE (21:09)
[2021-07-12] MEDS ORDERED: CARVEDILOL 6.25 MG TABLET (FP) ONE (21:10)
[2021-07-12] MEDS ORDERED: GABAPENTIN 300 MG CAPSULE ONE (21:10)
[2021-07-12] MEDS: CARVEDILOL 6.25 MG TABLET (FP) PO SCH (21:10)
[2021-07-12] MEDS ORDERED: GABAPENTIN 300 MG CAPSULE PO SCH (22:00)
[2021-07-12] MEDS ORDERED: ATORVASTATIN CA 20 MG TABLET (FP) PO SCH (22:00)
[2021-07-12] MEDS ORDERED: CARVEDILOL 6.25 MG TABLET (FP) PO SCH (22:00)
[2021-07-13 00:52] VITALS: BMI 37.6
[2021-07-13] MEDS: INSULIN SLIDING SCALE (NOVOLOG) 1 VIAL SQ SCH ×4 (01:22→17:27)
[2021-07-13] MEDS: MECLIZINE HCL 25 MG TABLET (FP) PO SCH ×3 (03:06→14:26)
[2021-07-13] MEDS ORDERED: LEVOTHYROXINE NA 50 MCG TABLET (FP) PO SCH (07:00)
[2021-07-13] MEDS: PANTOPRAZOLE 40 MG TABLET PO SCH (09:36)
[2021-07-13] MEDS: CARVEDILOL 6.25 MG TABLET (FP) PO SCH (09:36)
[2021-07-13 09:37] LABS: CALCIUM 8.7 mg/dL (8.5-10.1)
[2021-07-13 09:38] LABS: BLOOD UREA NITROGEN 17.8 mg/dL (7-18); MAGNESIUM 1.7 mg/dL (1.8-2.4)
[2021-07-13 09:41] LABS: CREATININE 0.9 mg/dL (0.55-1.3); PHOSPHOROUS 3.4 mg/dL (2.5-4.9)
[2021-07-13] MEDS ORDERED: LOSARTAN POTASSIUM 50 MG TABLET PO SCH (10:00)
[2021-07-13] MEDS ORDERED: amLODIPine BESYLATE 5 MG TABLET (FP) PO SCH (10:00)
[2021-07-13] MEDS ORDERED: ENOXAPARIN NA (PORCINE) 40 MG/0.4 ML DISP.SYRIN SQ SCH (10:00)
[2021-07-13 18:04] VITALS: BP 146/56; PULSE 65; TEMP 98
== END 2021-07-13 18:17 | disposition home or self-care (01) ==
LOC: JER 08:04 → JERBED 11:58 → J8W 23:59
PROVIDERS: ADMIT Internal Medicine; ATTEND Internal Medicine
PROC: 3E033NZ Introduction of Analgesics, Hypnotics, Sedatives into Peripheral Vein, Percutaneous Approach (ICD-10-PCS; principal; 2021-07-12)
PROC: 3E023GC Introduction of Other Therapeutic Substance into Muscle, Percutaneous Approach (ICD-10-PCS; 2021-07-12)
PROC: 3E013VG Introduction of Insulin into Subcutaneous Tissue, Percutaneous Approach (ICD-10-PCS; 2021-07-12)
PROC: 3E0333Z Introduction of Anti-inflammatory into Peripheral Vein, Percutaneous Approach (ICD-10-PCS; 2021-07-12)
PROC: 3E033GC Introduction of Other Therapeutic Substance into Peripheral Vein, Percutaneous Approach (ICD-10-PCS; 2021-07-12)
DX: R42 Dizziness and giddiness (principal); M19.90 Unspecified osteoarthritis, unspecified site; G62.9 Polyneuropathy, unspecified; E11.9 Type 2 diabetes mellitus without complications; E78.5 Hyperlipidemia, unspecified; I10 Essential (primary) hypertension; Z85.53 Personal history of malignant neoplasm of renal pelvis; E03.9 Hypothyroidism, unspecified; Z90.89 Acquired absence of other organs; Z90.79 Acquired absence of other genital organ(s); E66.8 Other obesity; Z68.37 Body mass index [BMI] 37.0-37.9, adult; Z29.8 Encounter for other specified prophylactic measures; Z88.6 Allergy status to analgesic agent; Z88.0 Allergy status to penicillin; Z88.8 Allergy status to other drugs, medicaments and biological substances
CPT/HCPCS: 36415; 70450-TC; 70551-TC; 80048; 80053; 81003; 82962; 83690; 83735; 84100; 84484; 85025; 87086; 93005; 93010; 93880-TC; 96372; 96374; 96375; 97116-GP; 97161-GP; 99285-25; C9803-CS; G0378; U0003; U0005

== ENCOUNTER 2022-09-18 11:33 | Inpatient (IN) | payer OTHER ==
[2022-09-18 11:47] VITALS: BMI 35.0
[2022-09-18] MEDS ORDERED: ASPIRIN 81 MG CHEWABLE TABLETS PO ONE (12:29)
[2022-09-18] MEDS ORDERED: MAG HYDROX/AL HYDROX/SIMETH 30 ML UNIT-DOSE CUP PO ONE (12:33)
[2022-09-18] MEDS ORDERED: FAMOTIDINE 20 MG/50 ML IVPB 20 MG/50 ML MG IVPB ONE ×2 (12:33→12:52)
[2022-09-18] MEDS ORDERED: SODIUM CHLORIDE 0.9% 500 ML INFUS.BAG IV ONE (12:33)
[2022-09-18 12:50] LABS: BASO % 0.6 % (0-2.0); EOS % 3.8 % (0-4.5); HEMATOCRIT 40.4 % (32.4-45.2); HEMOGLOBIN 13.1 GM/dL (10.7-15.3); LYMPH % 36.5 % (8-40); MCH 27.4 pg (25.7-33.7); MCHC 32.3 g/dl (32.0-36.0); MEAN CELL VOLUME 84.8 fl (80-96); MEAN PLT VOLUME 9.2 fl (7.5-11.1); MONO % 5.5 % (3.8-10.2); NEUT % 53.6 % (42.8-82.8); PLATELET COUNT 154 10^3/uL (134-434); RBC 4.76 M/mm3 (3.60-5.2); RDW 15.3 % (11.6-15.6); WHITE BLOOD COUNT 6.8 K/mm3 (4.0-10.0)
[2022-09-18] MEDS ORDERED: ASPIRIN 81 MG CHEWABLE TABLETS ONE (12:52)
[2022-09-18] MEDS ORDERED: MAG HYDROX/AL HYDROX/SIMETH 30 ML UNIT-DOSE CUP ONE (12:52)
[2022-09-18 12:57] LABS: INR 1.2 (0.83-1.09); PROTHROMBIN TIME (PATIENT) 13.9 SEC (9.7-13.0)
[2022-09-18 13:00] LABS: ACTIVATED PTT 32.9 SECONDS (25.2-36.5)
[2022-09-18 13:05] LABS: POTASSIUM 4.4 mmol/L (3.5-5.1)
[2022-09-18 13:07] LABS: CALCIUM 9.6 mg/dL (8.5-10.1)
[2022-09-18 13:08] LABS: ALBUMIN 3.4 g/dl (3.4-5.0); BLOOD UREA NITROGEN 17.1 mg/dL (7-18); MAGNESIUM 1.6 mg/dL (1.8-2.4)
[2022-09-18 13:11] LABS: CREATININE 0.9 mg/dL (0.55-1.3)
[2022-09-18 13:13] LABS: BILIRUBIN,TOTAL 0.5 mg/dL (0.2-1); TOT PROT 7.2 g/dl (6.4-8.2)
[2022-09-18] MEDS ORDERED: HEPARIN NA (PORCINE) 5,000 UNITS/ML 1ML VIAL IVPUSH PRN ×4 (13:50→14:33)
[2022-09-18] MEDS ORDERED: MAGNESIUM SULF 50% (8.12 MEQ/2 ML-1 GM VIAL) IVPB ONE (13:56)
[2022-09-18] MEDS ORDERED: HEPARIN INFUSION - 25,000 UNITS/500 ML INFUS.BAG IVPB SCH (14:00)
[2022-09-18] MEDS ORDERED: CLOPIDOGREL BISULFATE 300 MG TABLET PO ONE (14:03)
[2022-09-18] MEDS ORDERED: HEPARIN INFUSION - 25,000 UNITS/500 ML INFUS.BAG IVPB ONE (14:20)
[2022-09-18] MEDS ORDERED: MAGNESIUM SULFATE IN WATER 2 GM/50 ML IVPB IVPB ONE (14:20)
[2022-09-18] MEDS ORDERED: CLOPIDOGREL BISULFATE 300 MG TABLET ONE (14:38)
[2022-09-18] MEDS: NITROGLYCERIN SUBLINGUAL 1/150 0.4 MG TAB SL PRN ×3 (14:44→21:59)
[2022-09-18] MEDS ORDERED: HEPARIN - 25,000 UNIT in SODIUM CHLORIDE 495 ML IV SCH (14:45)
[2022-09-18] MEDS: INSULIN SLIDING SCALE (NOVOLOG) 1 VIAL SQ SCH (16:43)
[2022-09-18] MEDS ORDERED: GABAPENTIN 300 MG CAPSULE PO SCH (22:00)
[2022-09-18] MEDS ORDERED: ATORVASTATIN CA 20 MG TABLET (FP) PO SCH (22:00)
[2022-09-18] MEDS ORDERED: INSULIN (LEVEMIR) 100 UNITS/ML UNITS SQ SCH (22:00)
[2022-09-18] MEDS: CARVEDILOL 6.25 MG TABLET (FP) PO SCH (22:03)
[2022-09-19 06:21] VITALS: RESP 20
[2022-09-19] MEDS: INSULIN SLIDING SCALE (NOVOLOG) 1 VIAL SQ SCH ×2 (06:22→11:19)
[2022-09-19] MEDS ORDERED: LEVOTHYROXINE NA 50 MCG TABLET (FP) PO SCH (07:00)
[2022-09-19 07:30] LABS: BASO % 0.5 % (0-2.0); EOS % 3.3 % (0-4.5); HEMATOCRIT 38.8 % (32.4-45.2); HEMOGLOBIN 12.8 GM/dL (10.7-15.3); LYMPH % 45.3 % (8-40); MCH 28.2 pg (25.7-33.7); MEAN CELL VOLUME 85.6 fl (80-96); MEAN PLT VOLUME 9.4 fl (7.5-11.1); MONO % 5.2 % (3.8-10.2); NEUT % 45.7 % (42.8-82.8); PLATELET COUNT 137 10^3/uL (134-434); RBC 4.54 M/mm3 (3.60-5.2); RDW 15.1 % (11.6-15.6); WHITE BLOOD COUNT 5.4 K/mm3 (4.0-10.0)
[2022-09-19 07:37] LABS: POTASSIUM 4.3 mmol/L (3.5-5.1)
[2022-09-19 07:40] LABS: CALCIUM 9.3 mg/dL (8.5-10.1)
[2022-09-19 07:41] LABS: BLOOD UREA NITROGEN 17.7 mg/dL (7-18)
[2022-09-19 07:44] LABS: CREATININE 0.9 mg/dL (0.55-1.3)
[2022-09-19] MEDS ORDERED: PANTOPRAZOLE 40 MG TABLET PO SCH (10:00)
[2022-09-19] MEDS ORDERED: ASPIRIN COATED 81 MG TABLET.EC PO SCH (10:00)
[2022-09-19] MEDS ORDERED: CLOPIDOGREL BISULFATE 75 MG TABLET (FP) PO SCH (10:00)
[2022-09-19] MEDS ORDERED: amLODIPine BESYLATE 2.5 MG TABLET (FP) PO SCH (10:00)
[2022-09-19] MEDS ORDERED: LOSARTAN POTASSIUM 50 MG TABLET PO SCH (10:00)
[2022-09-19] MEDS ORDERED: LISINOPRIL 20 MG TABLET PO SCH (10:15)
[2022-09-19 10:43] VITALS: TEMP 97.4
[2022-09-19 11:05] VITALS: BP 133/63; PULSE 62
[2022-09-19] MEDS: CARVEDILOL 6.25 MG TABLET (FP) PO SCH (11:06)
== END 2022-09-19 14:09 | disposition short-term general hospital (02) | DRG 282 ==
LOC: JER 11:33 → JERBED 12:28 → J4W 21:50
PROVIDERS: ADMIT Internal Medicine; ATTEND Internal Medicine
DX: I21.4 Non-ST elevation (NSTEMI) myocardial infarction (principal); I25.110 Atherosclerotic heart disease of native coronary artery with unstable angina pectoris; E03.9 Hypothyroidism, unspecified; I10 Essential (primary) hypertension; E66.9 Obesity, unspecified; E78.2 Mixed hyperlipidemia; R07.89 Other chest pain; E11.9 Type 2 diabetes mellitus without complications; Z68.32 Body mass index [BMI] 32.0-32.9, adult
CPT/HCPCS: 36415; 71046-TC-FY; 74176-TC; 80048; 80053; 80061; 82962; 83036; 83735; 84484; 85025; 85610; 85730; 87635; 93005; 93010; 93306-TC; 99285-25; J1644